=== PATIENT | male | born 1970 | race Two or more races ===

== ENCOUNTER 2020-04-28 14:02 | Inpatient (IN) | payer MEDICAID ==
[2020-04-27 21:00] VITALS: BP 109/88
[2020-04-28] VITALS (7 sets, daily range): BP systolic 143–178; BP diastolic 82–101
[~2020-04-28] VITALS: Ht 170.2 cm; Wt 62.1 kg
--- NOTE | 2020-04-28 14:33 | Emergency Room Report ---
History of Present Illness General Chief Complaint: Dyspnea/Respdistress Source: Patient Present Illness HPI Disclaimer: Please note that this report is being documented using DRAGON technology. This can lead to erroneous entry secondary to incorrect interpretation by the dictating instrument. HPI: 49-year-old male history of diabetes presents for shortness of breath. Symptoms present 2 days. He states he feels tightness chest and some chest pain with deep inspiration. Mild cough. Worsening over the past day. Denies fever or chills. Denies nausea or vomiting. Denies history of asthma, COPD, bronchitis, emphysema. Unknown Covid exposure. PMH: Diabetes PSH: Reviewed Allergies: Reviewed Social Hx: Tobacco use Allergies: Coded Allergies: No Known Allergies (Unverified , 04/28/20) COVID-19 Screening Contact w/high risk pt: No Experienced COVID-19 symptoms?: No COVID-19 Testing performed FUNERAL PRE NEED CONSULTANT: No Nursing Documentation-PMH Hx Diabetes: Yes Review of Systems All Other Systems: negative except mentioned in HPI Physical Exam Vital Signs Date Time Temp Pulse Resp B/P (MAP) Pulse Ox O2 Delivery O2 Flow Rate FiO2 04/28/20 14:12 99.0 118 24 192/101 (131) 88 Room Air General: Awake and alert, appears uncomfortable HEENT: NC/AT. EOMI. Cardiovascular: Tachycardic Resp: 10 L nonrebreather. Was hypoxic on room air. Increased work of breathing with substernal retractions. No wheezing. No crackles. Abdomen: Abdomen is soft, nondistended. Nontender Skin: Intact. No abrasions, laceration or rash over the exposed skin MSK: Normal tone and bulk. Moving all extremities. No obvious deformity. Neuro: Awake and alert. Mentating appropriately. Procedures Critical Care Time Critical Care Time Total critical care time: Approximately 45 minutes Due to a high probability of clinically significant, life threatening deterioration, the patient required the highest level of preparedness to intervene emergently and I personally spent this critical care time directly and personally managing the patient. This critical care time included obtaining a history, examining the patient, pulse oximetry, ordering and reviewing studies, ordering treatments, evaluating response to treatment and updating management plan as needed, frequent reassessment and discussion with other providers as well as arranging for ultimate disposition. This critical to care time was performed to assess and manage the high probability of life-threatening deterior ation that could result in multiorgan failure. This critical care time is separate from the separately billable procedures and treating other patients. Medical Decision Making Diagnostic Impression: Primary Impression: DKA (diabetic ketoacidoses) Additional Impressions: JEREMY (acute kidney injury) Elevated WBC count Elevated d-dimer Hyperglycemia ER Course Is a 49-year-old male presenting with shortness of breath. Differential includes not limited to pneumonia, COVID-19 infection, viral syndrome, ACS, PE, DKA, hyperglycemia among others. Fingerstick on arrival reads "high." Broad work-up initiated including blood cultures, lactate, ABG, chest x-ray EKG and extensive blood work. Concern for DKA. Patient started on insulin. ABG showed significant acidosis concerning for DKA. Insulin drip started. Bicarb given. No infiltrate seen on chest x-ray. Suspect his breathing issues are related to his acidosis causing Kussmaul breathing. Labs show bicarb of 6 and anion gap of 35 and glucose level of 672. Again this consistent with DKA. Troponin negative. Continuing insulin drip, fluids and bicarb. Covid antigen test negative. Admit to ICU. Dr. Noble is panel physician today. Repeat BMP shows still elevated glucose and open anion gap. Potassium low. Insulin drip held and potassium supplementation given. Can restart drip once potassium within acceptable limits. Laboratory Tests Test 04/28/20 14:37 04/28/20 14:40 04/28/20 14:48 04/28/20 17:06 POC Whole Blood Glucose Pending White Blood Count 18.6 K/UL (4.8-10.8) H Red Blood Count 5.01 M/UL (4.70-6.10) Hemoglobin 16.3 G/DL (14.2-18.0) Hematocrit 51.2 % (42.0-52.0) Mean Corpuscular Volume 102 FL (80-99) H Mean Corpuscular Hemoglobin 32.6 PG (27.0-31.0) H Mean Corpuscular Hemoglobin Concent 31.9 G/DL (32.0-36.0) L Red Cell Distribution Width 12.3 % (11.6-14.8) Platelet Count 273 K/UL (150-450) Mean Platelet Volume 7.3 FL (6.5-10.1) Neutrophils (%) (Auto) % (45.0-75.0) Lymphocytes (%) (Auto) % (20.0-45.0) Monocytes (%) (Auto) % (1.0-10.0) Eosinophils (%) (Auto) % (0.0-3.0) Basophils (%) (Auto) % (0.0-2.0) Differential Total Cells Counted 100 Neutrophils % (Manual) 83 % (45-75) H Lymphocytes % (Manual) 7 % (20-45) L Monocytes % (Manual) 7 % (1-10) Eosinophils % (Manual) 0 % (0-3) Basophils % (Manual) 0 % (0-2) Band Neutrophils 3 % (0-8) Platelet Estimate Adequate Platelet Morphology Normal Red Blood Cell Morphology Normal Prothrombin Time 9.7 SEC (9.30-11.50) Prothrombin Time INR 0.9 (0.9-1.1) Activated Partial Thromboplast Time 30 SEC (23-33) D-Dimer 1.28 mg/L FEU (0.00-0.49) H Sodium Level 132 MMOL/L (136-145) L 144 MMOL/L (136-145) # Potassium Level 3.6 MMOL/L (3.5-5.1) 2.5 MMOL/L (3.5-5.1) *L Chloride Level 91 MMOL/L (98-107) L 104 MMOL/L (98-107) Carbon Dioxide Level 6 MMOL/L (21-32) *L 6 MMOL/L (21-32) *L Anion Gap 35 mmol/L (5-15) H 34 mmol/L (5-15) H Blood Urea Nitrogen 21 mg/dL (7-18) H 21 mg/dL (7-18) H Creatinine 1.8 MG/DL (0.55-1.30) H 1.5 MG/DL (0.55-1.30) H Estimated Glomerular Filtration Rate 40.3 mL/min (>60) 49.7 mL/min (>60) Glucose Level 672 MG/DL (74-106) *H 534 MG/DL (74-106) #*H Lactic Acid Level 4.40 mmol/L (0.4-2.0) H Calcium Level 9.6 MG/DL (8.5-10.1) 7.7 MG/DL (8.5-10.1) L Phosphorus Level 8.8 MG/DL (2.5-4.9) H Magnesium Level 2.8 MG/DL (1.8-2.4) H Ferritin 695 NG/ML (8-388) H Total Bilirubin 0.3 MG/DL (0.2-1.0) Aspartate Amino Transferase (AST) 69 U/L (15-37) H Alanine Aminotransferase (ALT) 55 U/L (12-78) Alkaline Phosphatase 124 U/L (46-116) H Lactate Dehydrogenase 247 U/L (81-234) H Total Creatine Kinase 262 U/L (26-308) Creatine Kinase MB 6.2 NG/ML (0.0-3.6) H Creatine Kinase MB Relative Index 2.3 Troponin I 0.000 ng/mL (0.000-0.056) C-Reactive Protein, Quantitative < 0.4 mg/dL (0.00-0.90) Pro-B-Type Natriuretic Peptide 324 pg/mL (0-125) H Total Protein 8.9 G/DL (6.4-8.2) H Albumin 4.7 G/DL (3.4-5.0) Globulin 4.2 g/dL Albumin/Globulin Ratio 1.1 (1.0-2.7) Lipase 353 U/L (73-393) Acetone Level Positive-small (NEGATIVE) Arterial Blood pH 6.883 (7.350-7.450) Arterial Blood Partial Pressure CO2 11.4 mmHg (35.0-45.0) *L Arterial Blood Partial Pressure O2 315.2 mmHg (75.0-100.0) H Arterial Blood HCO3 2.1 mmol/L (22.0-26.0) *L Arterial Blood Oxygen Saturation 98.6 % (95-100) Arterial Blood Base Excess -29.9 (-2-2) *L Sage Test Positive Microbiology Date/Time Source Procedure Growth Status 04/28/20 14:52 Nasopharynx SARS-CoV-2 Antigen (Rapid)(SELENE) - Final Complete EKG Diagnostic Results Troponin ordered: Yes When was troponin ordered?: Apr 28, 2020 EKG Time: 14:30 Rate: tachycardiac Other Impression Sinus tachycardia with wide QRS consistent with interventricular conduction delay Rhythm Strip Diag. Results Rhythm Strip Time: 14:30 EP Interpretation: yes Rate: 110s Rhythm: NSR, no PVC's, no ectopy Chest X-Ray Diagnostic Results Chest X-Ray Diagnostic Results : Chest X-Ray Ordered: Yes # of Views/Limited/Complete: 1 View Indication: Shortness of Breath EP Interpretation: Yes Interpretation: no consolidation, no effusion, no pneumothorax, no acute cardiopulmonary disease Impression: No acute disease Electronically Signed by: Electronically signed by Dr. Vamshi Han MD Last Vital Signs Date Time Temp Pulse Resp B/P (MAP) Pulse Ox O2 Delivery O2 Flow Rate FiO2 04/28/20 14:12 99.0 118 24 192/101 (131) 88 Room Air Disposition: ADMITTED INPATIENT Condition: Critical Vamshi Han MD Apr 28, 2020 14:33
--- NOTE | 2020-04-28 14:50 | NUR ---
RESPIRATORY NOTE: ABG drawn at this time. Results given to MD Emely.
--- NOTE | 2020-04-28 15:00 | NUR ---
came to er complaints of shortness of breath since morning but worse now denies any other problem patient has low o2 sat placed on 15 liter non rebreather
[2020-04-28 15:04] LABS: HEMATOCRIT 51.2 % (42.0-52.0); HEMOGLOBIN 16.3 G/DL (14.2-18.0); MEAN CORPUSCULAR VOLUME 102 FL (80-99); PLATELET COUNT 273 K/UL (150-450); RED BLOOD COUNT 5.01 M/UL (4.70-6.10); RED CELL DISTRIBUTION WIDTH 12.3 % (11.6-14.8); WHITE BLOOD COUNT 18.6 K/UL (4.8-10.8)
[2020-04-28] MEDS ORDERED: Insulin Human Regular 100units/ml 3ml IV ONE (15:15)
[2020-04-28] MEDS ORDERED: Sodium Bicarbonate 50ml Carp IV ONE (15:15)
[2020-04-28 15:18] LABS: INR 0.9 (0.9-1.1)
--- NOTE | 2020-04-28 15:30 | NUR ---
labs done ekg done accucheck hi
[2020-04-28 15:36] LABS: ALANINE AMINOTRANSFERASE 55 U/L (12-78); ALBUMIN 4.7 G/DL (3.4-5.0); ALBUMIN/GLOBULIN RATIO 1.1 (1.0-2.7); ALKALINE PHOSPHATASE 124 U/L (46-116); ANION GAP 35 mmol/L (5-15); ASPARTATE AMINO TRANSFERASE 69 U/L (15-37); BILIRUBIN,TOTAL 0.3 MG/DL (0.2-1.0); BLOOD UREA NITROGEN 21 mg/dL (7-18); CALCIUM 9.6 MG/DL (8.5-10.1); CHLORIDE 91 MMOL/L (98-107); CREATINE KINASE 262 U/L (26-308); CREATININE 1.8 MG/DL (0.55-1.30); FERRITIN 695 NG/ML (8-388); LACTATE DEHYDROGENASE 247 U/L (81-234); PHOSPHORUS 8.8 MG/DL (2.5-4.9); POTASSIUM 3.6 MMOL/L (3.5-5.1); SODIUM 132 MMOL/L (136-145)
[2020-04-28 15:40] LABS: CARBON DIOXIDE 6 MMOL/L (21-32)
[2020-04-28 16:06] LABS: CKMB 6.2 NG/ML (0.0-3.6)
--- NOTE | 2020-04-28 16:32 | Consultation ---
Consult Note Consult Note DATE OF CONSULTATION: 04/28/2020 CONSULTING PHYSICIAN: Nigel Ray MD. ATTENDING PHYSICIAN: Dr. Noble REASON FOR CONSULTATION: Acute hypoxic respiratory failure HISTORY OF PRESENT ILLNESS: This is a 49-year-old male with past medical history of diabetes mellitus who presented to the ED for evaluation of shortness of br eath x2 days. Patient reports feeling tightness in the chest with some chest pain with deep inspiration and mild cough. Patient denies history of asthma, COPD, bronchitis, or emphysema. Patient reports testing negative for COVID-19 4 months prior. Patient denies exposure to COVID-19 or sick contact or recent travel. Patient denies smoking history. Chest x-ray in ER shows no acute cardiopulmonary disease. Patient is found to be sinus tachycardic. Patient's laboratory studies are remarkable for leukocytosis, hyperglycemia, lactic acidosis, elevated D-dimer, and acidemia. Patient was immediately started on insulin drip and bicarb. Troponin was negative. Covid antigen test was negative. Patient is awaiting admission in ER. PAST MEDICAL HISTORY: Diabetes mellitus, not on medication MEDICATIONS: Full list of home medications not available at this time ALLERGIES: No known allergy FAMILY HISTORY: Noncontributory PERSONAL/SOCIAL HISTORY: Patient lives alone, denies tobacco use REVIEW OF SYSTEMS: Negative except mentioned in HPI PHYSICAL EXAMINATION: VITAL SIGNS: Blood pressure 178/97, heart rate 127, respiratory rate 22, weight 65, height 177. General: Patient laying in bed with head of bed elevated, increased work of breathing on 2 L nasal cannula HEENT: Head exam reveals that the head is normocephalic, atraumatic without deformity or unusual swelling. Pupils are PERRLA. Dry mucous membranes CHEST AND LUNGS: Substernal retractions, increased work of breathing, no wheezing, no crackles CARDIOVASCULAR: Reveals normal S1, S2 without murmurs, rubs, or clicks. ABDOMEN: Soft with no tenderness or organomegaly. RECTAL: Deferred. MUSCULOSKELETAL: There is no tenderness to palpation. Range of motion is normal. NEUROLOGICAL: Alert and oriented x3 , nonfocal LABORATORY DATA: Laboratory testing shows WBC 18.6. Chemistries show sodium 132, chloride 91, BUN 21, creatinine 1.8, GFR 40.3, glucose 672, lactic acid 4.4, phosphorus 8.8, magnesium 2.8, ferritin 695, AST 69, alk phos 124, LDH 247, CK-MB 6.2, troponin 0, BNP 324 D-dimer 1.28 Assessment/Plan 1. Leukocytosis with neutrophil predominance 2. DKA -On IV fluids and insulin drip 3. Rapid COVID-19 negative (04/28) 4. Elevated D-dimer - we will add Lovenox for DVT ppx 5. Hypoxic respiratory failure, likely secondary to #2 -Patient showing Kussmaul breathing -Continue supplemental oxygen - f/u ABG The care for this patient was discussed with my supervising physician. Time spent for this case was approximately 31 minutes. Alexandru Aranda Apr 28, 2020 16:32
[2020-04-28 17:31] LABS: CALCIUM 7.7 MG/DL (8.5-10.1); CREATININE 1.5 MG/DL (0.55-1.30)
[2020-04-28 18:07] LABS: POTASSIUM 2.5 MMOL/L (3.5-5.1)
--- NOTE | 2020-04-28 18:33 | NUR ---
attempted to call report. room not ready at this time. ICU verbalized to call when room ready and get bedside report.
--- NOTE | 2020-04-28 18:33 | Diagnostic Imaging Report ---
Indication: Shortness of breath Technique: One view of the chest Comparison: none Findings: There is bilateral basilar atelectasis and possibly some patchy infiltrate at the left lung base. The heart size is normal. The pleural spaces are clear. Impression: Bilateral basilar atelectasis and possibly patchy left basilar infiltrate.
--- NOTE | 2020-04-28 20:00 | NUR ---
ED Nurse Note: Pt brought in for hyperglycemia admitted for DKA to ICU per MD, all labs and swabs sent to lab, pt is AOx4 ambulatory, tachycardic, no complaints, report given to Aleshia MORIN patient belongings sent with patient refused offer to put in hospital safe, belongings form filled, and signed by patient
--- NOTE | 2020-04-28 20:16 | NUR ---
NURSE NOTES: Called Dr. Kingsley per Dr. Ray regarding the bicarb result post intubation ABG bicarb 12.8. Dr Kingsley gave orders noted and carried out. charge nurse aware. Addendum: 04/28/20 at 2018 by HARJIT TANNER RN wrong patient
--- NOTE | 2020-04-28 21:27 | NUR ---
NURSE NOTES: NURSE NOTES: Received report from Leah RN. Admitted patient from ER via [facility] accompanied by PERSONNEL TRAINING OFFICER and chemical treatment plant technician. admitting diagnosis hypoxia and Resp failure. patient originally from home.n Called Dr. Noble for admission orders. Blood sugar 427mg/dl received from ER with Regular insulin drip at 7.07mls. patient awake,alert oriented x3 with forgetful and slurred speech. on 3L oxygen via N/C satting 99-100%. ST on surveillance monitor [id number], BP from 162/84- 109/88 Resp 27, Temp 96.0 orally, Isac hugger applied. body assessment done. patient refused to removed underwear to check sacral. explained the importance v/s risk and benefits but pt strongly refused. Instructed patient to use call light for assistance. bed alarm on. bed locked and in low position. Negative for covid per PERSONNEL TRAINING OFFICER. patient denies anxiety and pain. will continue plan of care.
--- NOTE | 2020-04-28 21:48 | NUR ---
NURSE NOTES: 2nd call was made for Dr. Noble and left message regarding admission orders. CN aware.
[2020-04-28] MEDS: Pantoprazole Inj IVP SCH (22:31)
--- NOTE | 2020-04-28 22:37 | NUR ---
NURSE NOTES: Called Dr. Dutton and gave orders noted and carried out.
[2020-04-28] MEDS ORDERED: Insulin Rate Change 1 Each MISC PRN (22:45)
[2020-04-28] MEDS ORDERED: Insulin Human Regular 100units/ml 3ml IV PRN ×2 (22:45)
--- NOTE | 2020-04-28 22:48 | NUR ---
NURSE NOTES: Called Dr. Ordonez made aware of patient condition and gave orders noted and carried out.
[2020-04-28] MEDS: NS w/KCl 20mEq 1000ml 1,000 ML IV SCH (23:24)
[2020-04-29] VITALS (33 sets, daily range): BP systolic 91–151; BP diastolic 57–91
--- NOTE | 2020-04-29 | NUR ---
NURSE NOTES: Patient awake,alert oriented x4. patient blood glucose 257mg/dl on Algo 2 Regular insulin drip at 5cc/hr. no s/s of hypo/hyperglycemia. Used urinal with 900cc urine output. Temp 98.6 axillary. call light within easy reach. will continue plan of care.
--- NOTE | 2020-04-29 02:00 | NUR ---
NURSE NOTES: Patient in bed sleeping comfortably. on 3L oxygen via N/C satting 100%. HOB elevated. no s/s of acute distress noted. patient blood glucose 171mg/dl on Algo 2 Regular insulin drip at 2.5cc/hr, IV line intact running NS with 20meq KCL at 100cc/hr. NPO overnight per Dr. Dutton earlier patient with slurred speech but able to swallow meds and water. . no s/s of hypo/hyperglycemia. Urinal at bedside. call light within easy reach. will continue plan of care.
--- NOTE | 2020-04-29 04:00 | NUR ---
NURSE NOTES: Patient used bedpan with x1 large BM, urinal used with 900cc tonja yellow urine, call light within easy reach. no s/s of hypo/hyperglycemia. frequent visual checks continued. will cont plan of care.
[2020-04-29 05:37] LABS: BASOPHILS % (AUTO) 0.4 % (0.0-2.0); HEMATOCRIT 42.4 % (42.0-52.0); HEMOGLOBIN 14.5 G/DL (14.2-18.0); LYMPHOCYTES % (AUTO) 5.4 % (20.0-45.0); MEAN CORPUSCULAR VOLUME 94 FL (80-99); MONOCYTES % (AUTO) 10.6 % (1.0-10.0); NEUTROPHILS % (AUTO) 83.5 % (45.0-75.0); PLATELET COUNT 185 K/UL (150-450); RED BLOOD COUNT 4.53 M/UL (4.70-6.10); RED CELL DISTRIBUTION WIDTH 11.4 % (11.6-14.8); WHITE BLOOD COUNT 12.7 K/UL (4.8-10.8)
[2020-04-29 05:47] LABS: ANION GAP 22 mmol/L (5-15); BLOOD UREA NITROGEN 18 mg/dL (7-18); CALCIUM 9.2 MG/DL (8.5-10.1); CARBON DIOXIDE 11 MMOL/L (21-32); CHLORIDE 108 MMOL/L (98-107); POTASSIUM 3.3 MMOL/L (3.5-5.1); SODIUM 141 MMOL/L (136-145)
--- NOTE | 2020-04-29 06:00 | NUR ---
NURSE NOTES: Patient awake,alert watching TV. patient blood glucose 146mg/dl on Algo 2 Regular insulin drip at 2cc/hr. no s/s of hypo/hyperglycemia. . call light within easy reach. will continue plan of care.
[2020-04-29 06:11] LABS: CHOLESTEROL 249 MG/DL (< 200); CREATINE KINASE 219 U/L (26-308); GAMMA GLUTAMYL TRANSPEPTIDASE 81 U/L (5-85); HDL CHOLESTEROL 52 MG/DL (40-60); PHOSPHORUS 1.3 MG/DL (2.5-4.9); TRIGLYCERIDES 401 MG/DL (30-150)
--- NOTE | 2020-04-29 07:22 | Cardiac Electrophysiology PN ---
Subjective Subjective [id number] Objective Last 24 Hour Vital Signs Date Time Temp Pulse Resp B/P (MAP) Pulse Ox O2 Delivery O2 Flow Rate FiO2 04/29/20 05:00 94 20 137/78 (97) 100 04/29/20 04:00 98.2 94 19 134/85 (101) 99 04/29/20 04:00 Nasal Cannula 3.0 04/29/20 03:00 96 20 136/86 (103) 99 04/29/20 02:00 100 24 133/86 (102) 100 04/29/20 01:30 99 21 131/85 (100) 100 04/29/20 01:00 100 19 141/89 (106) 100 04/29/20 00:15 109 32 151/88 (109) 99 04/29/20 00:00 98.0 112 32 142/91 (108) 100 04/29/20 00:00 Nasal Cannula 3.0 04/28/20 23:00 106 28 151/95 (113) 100 04/28/20 22:00 110 27 159/95 (116) 100 04/28/20 21:30 112 27 154/98 (116) 100 04/28/20 21:15 112 27 146/101 (116) 100 04/28/20 21:13 117 04/28/20 21:11 Nasal Cannula 3.0 04/28/20 19:26 121 25 152/91 98 Nasal Cannula 3.0 04/28/20 18:33 107 25 143/82 100 Nasal Cannula 3.0 04/28/20 17:34 127 22 Nasal Cannula 3.0 04/28/20 15:29 127 22 178/97 100 Nasal Cannula 3.0 04/28/20 14:12 99.0 118 24 192/101 (131) 88 Room Air Intake and Output 04/28/20 04/29/20 19:00 07:00 Intake Total 599.055 ml Output Total 1800 ml Balance -1200.945 ml Intake Oral 0 ml IV Total 599.055 ml Output Urine Total 1800 ml # Bowel Movements 2 Laboratory Tests Test 04/28/20 14:37 04/28/20 14:40 04/28/20 14:48 04/28/20 17:06 POC Whole Blood Glucose Pending White Blood Count 18.6 K/UL (4.8-10.8) H Red Blood Count 5.01 M/UL (4.70-6.10) Hemoglobin 16.3 G/DL (14.2-18.0) Hematocrit 51.2 % (42.0-52.0) Mean Corpuscular Volume 102 FL (80-99) H Mean Corpuscular Hemoglobin 32.6 PG (27.0-31.0) H Mean Corpuscular Hemoglobin Concent 31.9 G/DL (32.0-36.0) L Red Cell Distribution Width 12.3 % (11.6-14.8) Platelet Count 273 K/UL (150-450) Mean Platelet Volume 7.3 FL (6.5-10.1) Neutrophils (%) (Auto) % (45.0-75.0) Lymphocytes (%) (Auto) % (20.0-45.0) Monocytes (%) (Auto) % (1.0-10.0) Eosinophils (%) (Auto) % (0.0-3.0) Basophils (%) (Auto) % (0.0-2.0) Differential Total Cells Counted 100 Neutrophils % (Manual) 83 % (45-75) H Lymphocytes % (Manual) 7 % (20-45) L Monocytes % (Manual) 7 % (1-10) Eosinophils % (Manual) 0 % (0-3) Basophils % (Manual) 0 % (0-2) Band Neutrophils 3 % (0-8) Platelet Estimate Adequate Platelet Morphology Normal Red Blood Cell Morphology Normal Prothrombin Time 9.7 SEC (9.30-11.50) Prothromb Time International Ratio 0.9 (0.9-1.1) Activated Partial Thromboplast Time 30 SEC (23-33) D-Dimer 1.28 mg/L FEU (0.00-0.49) H Sodium Level 132 MMOL/L (136-145) L 144 MMOL/L (136-145) # Potassium Level 3.6 MMOL/L (3.5-5.1) 2.5 MMOL/L (3.5-5.1) *L Chloride Level 91 MMOL/L (98-107) L 104 MMOL/L (98-107) Carbon Dioxide Level 6 MMOL/L (21-32) *L 6 MMOL/L (21-32) *L Anion Gap 35 mmol/L (5-15) H 34 mmol/L (5-15) H Blood Urea Nitrogen 21 mg/dL (7-18) H 21 mg/dL (7-18) H Creatinine 1.8 MG/DL (0.55-1.30) H 1.5 MG/DL (0.55-1.30) H Estimat Glomerular Filtration Rate 40.3 mL/min (>60) 49.7 mL/min (>60) Glucose Level 672 MG/DL (74-106) *H 534 MG/DL (74-106) #*H Lactic Acid Level 4.40 mmol/L (0.4-2.0) H Calcium Level 9.6 MG/DL (8.5-10.1) 7.7 MG/DL (8.5-10.1) L Phosphorus Level 8.8 MG/DL (2.5-4.9) H Magnesium Level 2.8 MG/DL (1.8-2.4) H Ferritin 695 NG/ML (8-388) H Total Bilirubin 0.3 MG/DL (0.2-1.0) Aspartate Amino Transf (AST/SGOT) 69 U/L (15-37) H Alanine Aminotransferase (ALT/SGPT) 55 U/L (12-78) Alkaline Phosphatase 124 U/L (46-116) H Lactate Dehydrogenase 247 U/L (81-234) H Total Creatine Kinase 262 U/L (26-308) Creatine Kinase MB 6.2 NG/ML (0.0-3.6) H Creatine Kinase MB Relative Index 2.3 Troponin I 0.000 ng/mL (0.000-0.056) C-Reactive Protein, Quantitative < 0.4 mg/dL (0.00-0.90) Pro-B-Type Natriuretic Peptide 324 pg/mL (0-125) H Total Protein 8.9 G/DL (6.4-8.2) H Albumin 4.7 G/DL (3.4-5.0) Globulin 4.2 g/dL Albumin/Globulin Ratio 1.1 (1.0-2.7) Lipase 353 U/L (73-393) Acetone Level Positive-small (NEGATIVE) Arterial Blood pH 6.883 (7.350-7.450) Arterial Blood Partial Pressure CO2 11.4 mmHg (35.0-45.0) *L Arterial Blood Partial Pressure O2 315.2 mmHg (75.0-100.0) H Arterial Blood HCO3 2.1 mmol/L (22.0-26.0) *L Arterial Blood Oxygen Saturation 98.6 % (95-100) Arterial Blood Base Excess -29.9 (-2-2) *L Sage Test Positive Test 04/28/20 18:25 04/29/20 04:20 POC Whole Blood Glucose Pending White Blood Count 12.7 K/UL (4.8-10.8) H Red Blood Count 4.53 M/UL (4.70-6.10) L Hemoglobin 14.5 G/DL (14.2-18.0) Hematocrit 42.4 % (42.0-52.0) Mean Corpuscular Volume 94 FL (80-99) Mean Corpuscular Hemoglobin 32.0 PG (27.0-31.0) H Mean Corpuscular Hemoglobin Concent 34.1 G/DL (32.0-36.0) Red Cell Distribution Width 11.4 % (11.6-14.8) L Platelet Count 185 K/UL (150-450) Mean Platelet Volume 7.8 FL (6.5-10.1) Neutrophils (%) (Auto) 83.5 % (45.0-75.0) H Lymphocytes (%) (Auto) 5.4 % (20.0-45.0) L Monocytes (%) (Auto) 10.6 % (1.0-10.0) H Eosinophils (%) (Auto) 0.0 % (0.0-3.0) Basophils (%) (Auto) 0.4 % (0.0-2.0) Sodium Level 141 MMOL/L (136-145) Potassium Level 3.3 MMOL/L (3.5-5.1) L Chloride Level 108 MMOL/L (98-107) H Carbon Dioxide Level 11 MMOL/L (21-32) L Anion Gap 22 mmol/L (5-15) H Blood Urea Nitrogen 18 mg/dL (7-18) Creatinine 1.0 MG/DL (0.55-1.30) Estimat Glomerular Filtration Rate > 60 mL/min (>60) Glucose Level 155 MG/DL (74-106) #H Hemoglobin A1c 9.6 % (4.3-6.0) H Uric Acid 9.1 MG/DL (2.6-7.2) H Calcium Level 9.2 MG/DL (8.5-10.1) Phosphorus Level 1.3 MG/DL (2.5-4.9) L Magnesium Level 1.8 MG/DL (1.8-2.4) Gamma Glutamyl Transpeptidase 81 U/L (5-85) Total Creatine Kinase 219 U/L (26-308) Troponin I Pending C-Reactive Protein, Quantitative 8.8 mg/dL (0.00-0.90) H Pro-B-Type Natriuretic Peptide 824 pg/mL (0-125) H Triglycerides Level 401 MG/DL (30-150) H Cholesterol Level 249 MG/DL (< 200) H LDL Cholesterol 113 mg/dL (<100) H HDL Cholesterol 52 MG/DL (40-60) Cholesterol/HDL Ratio 4.8 (3.3-4.4) H Lipase 148 U/L (73-393) Thyroid Stimulating Hormone (TSH) 3.287 uiU/mL (0.358-3.740) Microbiology Date/Time Source Procedure Growth Status 04/28/20 14:52 Nasopharynx SARS-CoV-2 Antigen (Rapid)(SELENE) - Final Complete Jordan Ordonez MD Apr 29, 2020 07:22
--- NOTE | 2020-04-29 07:30 | NUR ---
NURSE NOTES: Pt and report received from PATIENCE Monk. Pt is AOx4, independent with all ADLs. Pt is on 3L NC, O2sat 100%. HR on employer relations representative currently reads 82bpm. PIV Lt FA #[id number] and Rt hand #[id number]. Running Insulin drip @ 2units/hr and NS w/ 20mEq KCL @ 100mL/hr. Urinal at the bedside. Bed locked and in lowest position, call light within reach.
--- NOTE | 2020-04-29 07:30 | NUR ---
NURSE HAND-OFF REPORT: Latest Vital Signs: Temperature 98.2 , Pulse 79 , B/P 140 /83 , Respiratory Rate 18 , O2 SAT 100 , Nasal Cannula, O2 Flow Rate 3.0 . Vital Sign Comment: EKG Rhythm: Sinus Rhythm with BBB Rhythm change?: N MD Notified?: -Dr. Ordonez came and made aware MD Response: Latest Lewis Fall Score: 35 Fall Risk: Medium Risk Safety Measures: Call light Within Reach, Bed Alarm Zone 2, Side Rails Side Rails x2, Bed position Low and Locked. Fall Precautions: Yellow Socks Door Sign Patient Fall Education Report given to Janae MORIN. Dr. Ordonez rounded with patient update given. Notified MD regarding EKG result Right BBB HR 87.
--- NOTE | 2020-04-29 07:57 | NUR ---
NURSE NOTES: 2D echo being done at the bedside
--- NOTE | 2020-04-29 07:59 | Consultation ---
DATE OF CONSULTATION: 04/29/2020 CARDIOLOGY CONSULTATION CONSULTING PHYSICIAN: Jordan Ordonez MD. REFERRING PHYSICIAN: Jesús Noble MD. REASON FOR CONSULTATION: Tachycardia, bifascicular block in the patient with diabetic ketoacidosis. HISTORY OF PRESENT ILLNESS: The patient is a 49-year-old man with history of diabetes presented to the emergency room for increased shortness of breath of two days duration. The patient also had some chest tightness with deep inspiration and mild cough. The patient denies any prior COPD, asthma, or emphysema. The patient denies prior myocardial infarction or coronary artery disease. The patient was tested negative for COVID-19 four months ago. The patient noted to be in diabetic ketoacidosis. He had acidemia, hyperglycemia, leukocytosis, started on insulin drip and bicarb. The first troponin was negative and COVID was also negative. The patient was admitted to intensive care unit and a Cardiology consultation was obtained for further evaluation and management. REVIEW OF SYSTEMS: Negative other than what is mentioned in the history of present illness. PAST MEDICAL HISTORY: Diabetes but not on any medication. ALLERGIES: No known drug allergies. FAMILY HISTORY: Noncontributory. SOCIAL HISTORY: Lives alone. Does not smoke or do drugs. PHYSICAL EXAMINATION: VITAL SIGNS: Blood pressure in the ER was 178/98, currently 137/78, pulse is 94, respirations 18, and temperature 98.2. HEAD AND NECK: No JVD. LUNGS: Clear. CARDIOVASCULAR: Regular S1 and S2 with no gallop. ABDOMEN: Soft. EXTREMITIES: No pitting edema. LABORATORY AND DIAGNOSTIC DATA: Labs show white count initially was 18.6 and today is 12.7, hemoglobin is 14.5, hematocrit 42.4, platelet count 185. Sodium is 141, potassium was 2.5 and today is 3.3, CO2 was 6 and today 11, BUN of 18, creatinine 1.0, glucose of 534 and today is 155. Triglyceride 401 with an LDL of 113. Lipase of 148. ASSESSMENT AND PLAN: 1. Tachycardia due to diabetic ketoacidosis. The heart rate is better since the patient was started on insulin drip. We will get an echocardiogram for further evaluation. 2. 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 3. Severe hypokalemia. Potassium was being replaced. 4. Hyperlipidemia. The LDL goal is less than 70. In view of this patient's diabetes, start the patient on Lipitor. Thank you very much for allowing me to participate in the care of this patient. Please do not hesitate to contact me for any questions regarding my evaluation Sincerely, Jordan Ordonez M.D. DR: Karla JOB#: [id number] CC:
[2020-04-29] MEDS: Pantoprazole Inj IVP SCH ×2 (08:51→21:08)
[2020-04-29] MEDS: Lisinopril 10mg tab ORAL SCH ×2 (08:52→21:00)
[2020-04-29] MEDS: Enoxaparin 40mg Inj SUBQ SCH (08:56)
--- NOTE | 2020-04-29 09:00 | NUR ---
NURSE NOTES: Oxygen decreased on NC, now 1L. O2sat remains 100%
--- NOTE | 2020-04-29 09:50 | NUR ---
NURSE NOTES: Dr Noble on the unit making his rounds. Updated him on pt's current condition. Tech at bedside performing venous duplex
[2020-04-29] MEDS: Potassium Phosphate 15mm/250ml 250 ML IVPB SCH ×2 (09:59→13:21)
[2020-04-29] MEDS: NS w/KCl 20mEq 1000ml 1,000 ML IV SCH ×2 (10:00→18:00)
--- NOTE | 2020-04-29 10:15 | NUR ---
NURSE NOTES: Venous duplex reported to be negative
--- NOTE | 2020-04-29 10:42 | Pulmonology Progress Note ---
Subjective Interval Events: Remains on insulin gtt Constitutional: Reports: no symptoms HEENT: Repors: no symptoms Respiratory: Reports: no symptoms Cardiovascular: Reports: no symptoms Gastrointestinal/Abdominal: Reports: no symptoms Genitourinary: Reports: no symptoms Allergies: Coded Allergies: No Known Allergies (Unverified , 04/28/20) Objective Last 24 Hour Vital Signs Date Time Temp Pulse Resp B/P (MAP) Pulse Ox O2 Delivery O2 Flow Rate FiO2 04/29/20 09:13 100 Nasal Cannula 1.0 24 04/29/20 09:00 88 19 138/83 (101) 100 04/29/20 08:52 124/74 04/29/20 08:30 87 16 124/74 (91) 99 04/29/20 08:00 Nasal Cannula 1.0 04/29/20 08:00 90 04/29/20 08:00 98.2 90 21 136/82 (100) 100 04/29/20 07:45 100 Nasal Cannula 3.0 32 04/29/20 07:00 79 18 140/83 (102) 100 04/29/20 06:00 85 15 129/82 (98) 100 04/29/20 05:00 94 20 137/78 (97) 100 04/29/20 04:00 95 04/29/20 04:00 98.2 94 19 134/85 (101) 99 04/29/20 04:00 Nasal Cannula 3.0 04/29/20 03:00 96 20 136/86 (103) 99 04/29/20 02:00 100 24 133/86 (102) 100 04/29/20 01:30 99 21 131/85 (100) 100 04/29/20 01:00 100 19 141/89 (106) 100 04/29/20 00:15 109 32 151/88 (109) 99 04/29/20 00:00 98.0 112 32 142/91 (108) 100 04/29/20 00:00 106 04/29/20 00:00 Nasal Cannula 3.0 04/28/20 23:00 106 28 151/95 (113) 100 04/28/20 22:00 110 27 159/95 (116) 100 04/28/20 21:30 112 27 154/98 (116) 100 04/28/20 21:15 112 27 146/101 (116) 100 04/28/20 21:13 117 04/28/20 21:11 Nasal Cannula 3.0 04/28/20 19:26 121 25 152/91 98 Nasal Cannula 3.0 04/28/20 18:33 107 25 143/82 100 Nasal Cannula 3.0 04/28/20 17:34 127 22 Nasal Cannula 3.0 04/28/20 15:29 127 22 178/97 100 Nasal Cannula 3.0 04/28/20 14:12 99.0 118 24 192/101 (131) 88 Room Air Intake and Output 04/28/20 04/29/20 19:00 07:00 Intake Total 803.055 ml Output Total 1800 ml Balance -996.945 ml Intake Oral 0 ml IV Total 803.055 ml Output Urine Total 1800 ml # Bowel Movements 2 General Appearance: no acute distress HEENT: normocephalic Respiratory: chest wall non-tender, lungs clear Cardiovascular: normal peripheral pulses, normal rate Abdomen: normal bowel sounds Microbiology Date/Time Source Procedure Growth Status 04/28/20 14:52 Nasopharynx SARS-CoV-2 Antigen (Rapid)(SELENE) - Final Complete Laboratory Tests 04/28/20 14:37: POC Whole Blood Glucose [Pending] 04/28/20 14:40: White Blood Count 18.6H, Red Blood Count 5.01, Hemoglobin 16.3, Hematocrit 51.2, Mean Corpuscular Volume 102H, Mean Corpuscular Hemoglobin 32.6H, Mean Corpuscular Hemoglobin Concent 31.9L, Red Cell Distribution Width 12.3, Platelet Count 273, Mean Platelet Volume 7.3, Neutrophils (%) (Auto) , Lymphocytes (%) (Auto) , Monocytes (%) (Auto) , Eosinophils (%) (Auto) , Basophils (%) (Auto) , Differential Total Cells Counted 100, Neutrophils % (Manual) 83H, Lymphocytes % (Manual) 7L, Monocytes % (Manual) 7, Eosinophils % (Manual) 0, Basophils % (Manual) 0, Band Neutrophils 3, Platelet Estimate Adequate, Platelet Morphology Normal, Red Blood Cell Morphology Normal, Prothrombin Time 9.7, Prothromb Time International Ratio 0.9, Activated Partial Thromboplast Time 30, D-Dimer 1.28H, Sodium Level 132L, Potassium Level 3.6, Chloride Level 91L, Carbon Dioxide Level 6*L, Anion Gap 35H, Blood Urea Nitrogen 21H, Creatinine 1.8H, Estimat Glomerular Filtration Rate 40.3, Glucose Level 672*H, Lactic Acid Level 4.40H, Calcium Level 9.6, Phosphorus Level 8.8H, Magnesium Level 2.8H, Ferritin 695H, Total Bilirubin 0.3, Aspartate Amino Transf (AST/SGOT) 69H, Alanine Aminotransferase (ALT/SGPT) 55, Alkaline Phosphatase 124H, Lactate Dehydrogenase 247H, Total Creatine Kinase 262, Creatine Kinase MB 6.2H, Creatine Kinase MB Relative Index 2.3, Troponin I 0.000, C-Reactive Protein, Quantitative < 0.4, Pro-B-Type Natriuretic Peptide 324H, Total Protein 8.9H, Albumin 4.7, Globulin 4.2, Albumin/Globulin Ratio 1.1, Lipase 353, Acetone Level Positive-small 04/28/20 14:48: Arterial Blood pH 6.883*L, Arterial Blood Partial Pressure CO2 11.4*L, Arterial Blood Partial Pressure O2 315.2H, Arterial Blood HCO3 2.1*L, Arterial Blood Oxygen Saturation 98.6, Arterial Blood Base Excess -29.9*L, Sage Test Positive 04/28/20 17:06: Sodium Level 144#, Potassium Level 2.5*L, Chloride Level 104, Carbon Dioxide Level 6*L, Anion Gap 34H, Blood Urea Nitrogen 21H, Creatinine 1.5H, Estimat Glomerular Filtration Rate 49.7, Glucose Level 534#*H, Calcium Level 7.7L 04/28/20 18:25: POC Whole Blood Glucose [Pending] 04/29/20 04:20: White Blood Count 12.7H, Red Blood Count 4.53L, Hemoglobin 14.5, Hematocrit 42.4, Mean Corpuscular Volume 94, Mean Corpuscular Hemoglobin 32.0H, Mean Corpuscular Hemoglobin Concent 34.1, Red Cell Distribution Width 11.4L, Platelet Count 185, Mean Platelet Volume 7.8, Neutrophils (%) (Auto) 83.5H, Lymphocytes (%) (Auto) 5.4L, Monocytes (%) (Auto) 10.6H, Eosinophils (%) (Auto) 0.0, Basophils (%) (Auto) 0.4, Sodium Level 141, Potassium Level 3.3L, Chloride Level 108H, Carbon Dioxide Level 11L, Anion Gap 22H, Blood Urea Nitrogen 18, Cre atinine 1.0, Estimat Glomerular Filtration Rate > 60, Glucose Level 155#H, Hemoglobin A1c 9.6H, Uric Acid 9.1H, Calcium Level 9.2, Phosphorus Level 1.3L, Magnesium Level 1.8, Gamma Glutamyl Transpeptidase 81, Total Creatine Kinase 219, Troponin I 0.017, C-Reactive Protein, Quantitative 8.8H, Pro-B-Type Natriuretic Peptide 824H, Triglycerides Level 401H, Cholesterol Level 249H, LDL Cholesterol 113H, HDL Cholesterol 52, Cholesterol/HDL Ratio 4.8H, Lipase 148, Thyroid Stimulating Hormone (TSH) 3.287 04/29/20 08:58: Arterial Blood pH 7.325L, Arterial Blood Partial Pressure CO2 22.4*L, Arterial Blood Partial Pressure O2 144.9H, Arterial Blood HCO3 11.4*L, Arterial Blood Oxygen Saturation 97.6, Arterial Blood Base Excess -12.4*L, Sage Test Positive Current Medications Medications (Trade) Dose Ordered Sig/Jazzmine Route PRN Reason Start Time Stop Time Status Last Admin Dose Admin Atorvastatin Calcium (Lipitor) 20 mg BEDTIME ORAL 04/29/20 21:00 07/28/20 20:59 Clonidine HCl (Catapres Tab) 0.1 mg Q2H PRN ORAL SBP above 170 04/28/20 23:15 07/27/20 23:14 Dextrose (Dextrose 50%) 25 ml Q30M PRN IV HYPOGLYCEMIA 04/28/20 22:45 07/27/20 22:44 Dextrose (Dextrose 50%) 50 ml Q30M PRN IV HYPOGLYCEMIA 04/28/20 22:45 07/27/20 22:44 Enoxaparin Sodium (Lovenox) 40 mg DAILY SUBQ 04/29/20 09:00 07/28/20 08:59 04/29/20 08:56 Insulin Human Regular (NovoLIN R) 5 units PRN PRN IV BS 200-299 04/28/20 22:45 07/27/20 22:44 Insulin Human Regular (NovoLIN R) 10 units PRN PRN IV BS=>300 04/28/20 22:45 07/27/20 22:44 04/28/20 23:15 Insulin Human Regular 100 units/ Sodium Chloride 101 ml @ 0 mls/hr Q24H IV 04/28/20 22:45 05/28/20 22:44 04/28/20 22:59 Lisinopril (ZestriL) 10 mg EVERY 12 HOURS ORAL 04/29/20 09:00 05/29/20 08:59 04/29/20 08:52 Miscellaneous Medication (Insulin Rate Change) 1 ea PRN PRN MISC Hyperglycemia 04/28/20 22:45 07/27/20 22:44 Pantoprazole (Protonix) 40 mg EVERY 12 HOURS IVP 04/28/20 21:00 05/28/20 20:59 04/29/20 08:51 Potassium Chloride/Sodium Chloride 1,000 ml @ 100 mls/hr Q10H IV 04/28/20 23:45 05/28/20 23:44 04/29/20 10:00 Potassium Phosphate 250 ml @ 62.5 mls/hr Q4H IVPB 04/29/20 09:30 04/29/20 17:29 04/29/20 09:59 Assessment/Plan Assessment/Plan 1. Leukocytosis with neutrophil predominance 2. DKA -On IV fluids and insulin drip 3. Rapid COVID-19 negative (04/28) 4. Elevated D-dimer - Continue Lovenox for DVT ppx 5. Hypoxia - continue supplemental O2 Nigel Ray MD Apr 29, 2020 10:42
[2020-04-29] MEDS ORDERED: cefTRIAXone 1 GM in D5W 55 ML IVPB SCH (11:00)
--- NOTE | 2020-04-29 11:47 | NUR ---
MANAGER IN TRAINING NOTE SW met w/ pt and completed the psychosocial assessment. Pt presents as A&O4x and cooperative. Pt resides w/ his friend, Sandeep Papi at [address] [place] [id number]. Pt is and has two adult sons (28 y/o, 24y/o). Both and sons are living in [place]. Pt reports ETOH abuse, drinking 3-4 bottles of beer daily. SW explained negative impacts of ETOH abuse in his health and lifestyle and addressed the quantity of ETOH intake. PT reports he will reduce ETOH intake. PT denies tobacco/other substance abuse. PT declined tx intervention/resource on substance abuse. PT denies having mental health issue. Pt is ambulatory w/o DME and independent w/ ADLs prior to admission. Pt does not have AD/POA. Pt does not have any psychotherapist social worker concern at this time. Pt remains full code. Emergency contact: Sandeep Turpin (friend) [phone]
--- NOTE | 2020-04-29 11:59 | Consultation ---
DATE OF CONSULTATION: 04/29/2020 INFECTIOUS DISEASES CONSULTATION CONSULTING PHYSICIAN: Seabs Posada MD REASON FOR CONSULTATION: Pneumonia, leukocytosis. HISTORY OF PRESENT ILLNESS: This is a 49-year-old male admitted yesterday with shortness of breath and chest pain for two days. He is diabetic and noncompliant with medication. He had leukocytosis of 18.6 at the time of admission, had tachycardia with heart rate up to 127. PAST MEDICAL HISTORY: Diabetes mellitus, not on medication. ALLERGIES: No known drug allergies. MEDICATIONS: Atorvastatin, potassium chloride, lisinopril, enoxaparin, insulin. SOCIAL HISTORY: He is single, lives alone. Denies drug abuse. Denies smoking but drink alcohol. REVIEW OF SYSTEMS: Very limited. No fever. No chills. No significant coughing but have right-sided chest pain. No urinary complaints. PHYSICAL EXAMINATION: VITAL SIGNS: Temperature 98.2, pulse 88, blood pressure 138/83. GENERAL APPEARANCE: Seems to have normal weight. HEAD AND NECK: [place] conjunctiva. HEART: Normal rate. LUNGS: Clear. ABDOMEN: Soft and nontender. EXTREMITIES: No edema. NEUROLOGIC: Awake, alert, responsive. LABORATORY AND DIAGNOSTIC DATA: WBC today is 12.7, hemoglobin 14.5, hematocrit 42.4, and platelet 185. Sodium 141, potassium 3.3, chloride 108, bicarb 11, BUN 18, creatinine 1. Creatinine at the time of admission was 1.5. Glucose 155. Hemoglobin A1c 9.6. Chest x-ray showed bibasilar atelectasis and possibly patchy left basilar infiltrate. EKG at the time of admission has bifascicular branch block with right bundle-branch block and left posterior branch block. IMPRESSION: Sepsis versus systemic inflammatory response syndrome with leukocytosis and tachycardia, may have pneumonia, has diabetic ketoacidosis, acute renal failure,Hypokalemia. RECOMMENDATION: Start the patient on ceftriaxone. We will follow up UA and cultures. At the end of my exam, I thank Dr. Noble, for involving me in the care of this patient. Sebas Posada M.D. : Katerina JOB#: [id number] CC: NABILA
--- NOTE | 2020-04-29 12:00 | NUR ---
NURSE NOTES: Pt able to reposition self. Assisted pt with oral care. Pt remains on Insulin drip. 1L NC, O2sat 100%
--- NOTE | 2020-04-29 12:10 | Consultation ---
Consult Note Consult Note I'm asked to evaluate the patient at the request of Dr. Landry for fluid and electrolyte management Patient seen in ICU. Discussed with PATIENCE Cardoso. Emergency room note: Chief Complaint: Dyspnea/Respdistress HPI: 49-year-old male history of diabetes presents for shortness of breath. Sym ptoms present 2 days. He states he feels tightness chest and some chest pain with deep inspiration. Mild cough. Worsening over the past day. Denies fever or chills. Denies nausea or vomiting. Denies history of asthma, COPD, bronchitis, emphysema. Unknown Covid exposure. PMH: Diabetes PSH: Reviewed Allergies: Reviewed Social Hx: Tobacco use Allergies: No Known Allergies (Unverified , 04/28/20) COVID-19 Screening Contact w/high risk pt: No Experienced COVID-19 symptoms?: No COVID-19 Testing performed BACK SIZER: No Hx Diabetes: Yes Vital Signs Date Time Temp Pulse Resp B/P (MAP) Pulse Ox O2 Delivery O2 Flow Rate FiO2 04/28/20 14:12 99.0 118 24 192/101 (131) 88 Room Air PHYSICAL EXAMINATION: VITAL SIGNS: Temperature 98.2, pulse 88, blood pressure 138/83. GENERAL APPEARANCE: Seems to have normal weight. HEAD AND NECK: [employer] conjunctiva. HEART: Normal rate. LUNGS: Clear. ABDOMEN: Soft and nontender. EXTREMITIES: No edema. NEUROLOGIC: Awake, alert, responsive. LABORATORY AND DIAGNOSTIC DATA: WBC today is 12.7, hemoglobin 14.5, hematocrit 42.4, and platelet 185. Sodium 141, potassium 3.3, chloride 108, bicarb 11, BUN 18, creatinine 1. Creatinine at the time of admission was 1.5. Glucose 155. Hemoglobin A1c 9.6. Chest x-ray showed bibasilar atelectasis and possibly patchy left basilar infiltrate. EKG at the time of admission has bifascicular branch block with right bundle-branch block and left posterior branch block. . Assessment/Plan 49-year-old male admitted with DKA Severe electrolyte abnormalities Acute renal failure Leukocytosis, underlying sepsis Hemoconcentration Tachycardia Cardiac conduction defect in the form of bifascicular block with right bundle branch block and left posterior fascicular block Hyperlipemia Suggestions Hydrate Blood sugar control To correct low phosphorus low potassium and other electrolytes abnormalities as needed Per orders Calos Kingsley MD Apr 29, 2020 12:10
--- NOTE | 2020-04-29 14:00 | NUR ---
NURSE NOTES: Pt resting comfortably in bed. Pt remains on Insulin drip- Algorithm 2. BS have been between 120-155mg/dL. No distress noted at this time
--- NOTE | 2020-04-29 15:43 | Cardiology Report ---
APPROVED REPORT EKG Measurement Heart [id number] <Conclusion> sinus Right bundle branch block
--- NOTE | 2020-04-29 15:46 | Cardiology Report ---
APPROVED REPORT EKG Measurement Heart [id number] ID [id number] <Conclusion> Sinus tachycardia Right bundle branch block Left posterior fascicular block Bifascicular block Abnormal ECG
--- NOTE | 2020-04-29 15:47 | Diagnostic Imaging Report ---
Indication: Lower extremity pain Technique: Grayscale and duplex images of the bilateral lower extremity veins Comparison: None Findings: Bilaterally, grayscale and duplex images demonstrate no evidence of intraluminal thrombus. Normal phasic Doppler waveforms, demonstrating normal augmentation response and no evidence of valvular insufficiency. Greater saphenous vein(s) and tibial veins are patent. Normal compressibility. Impression: Negative for evidence of lower extremity deep venous thrombosis bilaterally
--- NOTE | 2020-04-29 16:00 | NUR ---
NURSE NOTES: Pt resting in bed watching TV. No discomfort noted.
[2020-04-29] MEDS ORDERED: Insulin Rate Change 1 Each MISC PRN (16:30)
--- NOTE | 2020-04-29 17:10 | NUR ---
NURSE NOTES: e d tech at bedside performing Abd Ultrasound
--- NOTE | 2020-04-29 17:35 | NUR ---
NURSE NOTES: Abdominal ultrasound complete at this time. Pt running Insulin drip on Algorithm 2; 1 unit/hr.
[2020-04-29] MEDS ORDERED: Insulin Human Regular 100units/ml 3ml IV PRN ×2 (17:45)
--- NOTE | 2020-04-29 18:14 | Consultation ---
DATE OF CONSULTATION: 04/29/2020 ENDOCRINOLOGY CONSULTATION CONSULTING PHYSICIAN: eZ Dutton MD. REFERRING PHYSICIAN: Jesús Noble MD. REASON FOR CONSULTATION: Diabetes management and DKA. HISTORY OF PRESENT ILLNESS: It is important to note the patient is a poor historian. This history is obtained from review of the chart and medical record. The patient is a 49-year-old with past medical history of diabetes, presented to hospital with shortness of breath x2 days. The patient was found to be in DKA, admitted to the ICU and started on insulin drip. I was called to manage diabetes. COVID antigen test was negative. PAST MEDICAL HISTORY: Diabetes, not taking any medications. MEDICATIONS: Reviewed and reconciled. ALLERGIES TO MEDICATIONS: None. FAMILY HISTORY: Noncontributory. SOCIAL HISTORY: No smoking, alcohol, or drug use. REVIEW OF SYSTEMS: As per HPI. LABORATORY DATA: WBC 12.7, hemoglobin 14, hematocrit 42, and platelet count 185. Sodium 141, potassium 3.3, chloride 108, bicarb 11, PHYSICAL EXAMINATION: VITAL SIGNS: Pulse of 94, blood pressure 137/78, respiratory rate of 20. HEENT: Pupils are equal and reactive to light. Sclerae are anicteric. NECK: No JVD. HEART: Regular. LUNGS: Clear. ABDOMEN: Positive bowel sounds. EXTREMITIES: Lower extremity, no clubbing, cyanosis, or edema. DIAGNOSES: 1. Gap acidosis due to lactic acidosis. 2. Diabetes out of control. PLAN: 1. Continue to manage insulin with insulin drip until the acidosis is resolved. 2. Follow the electrolytes and replace. 3. We will convert insulin drip to subcutaneous insulin later on today. I will follow him closely during his stay. Thank you, Dr. Noble, for the courtesy of this consultation. Ze Dutton M.D. DR: PATIENCE/STEPHAN JOB#: [id number] CC: NABILA
--- NOTE | 2020-04-29 18:44 | History and Physical Report ---
DATE OF ADMISSION: 04/28/2020 HISTORY OF PRESENT ILLNESS: The patient was admitted to intensive care unit for DKA. The patient has been complaining of shortness of breath for three days, abdominal pain, vomiting, and weakness for three days. The patient also has history of alcohol abuse. He is diabetic and has history of hypertension as well. Glucose was over 600. The patient was started on insulin drip, also has leukocytosis, and transferred to ICU. The patient feels very fatigued and weak. He also has had abdominal cramp for a couple of days. PAST MEDICAL HISTORY: History of alcohol abuse, history of NIDDM, history of hypertension, hyperlipidemia. PAST SURGICAL HISTORY: Denies. MEDICATIONS: The patient has been taking lisinopril, insulin in the past as well as Lipitor with some noncompliance at times. ALLERGIES: No known allergies. FAMILY HISTORY: Does have history of diabetes and hypertension. REVIEW OF SYSTEMS: HEENT: Denies headaches. RESPIRATORY: shortness of breath. Denies cough. CARDIOVASCULAR: Denies chest pain. Denies orthopnea. GASTROINTESTINAL: Reports vomiting. Denies hematemesis. He has abdominal pain and weakness for three days. EXTREMITIES: Denies pain in lower extremities. CENTRAL NERVOUS SYSTEM: He feels fatigued and weak throughout the body for about three days. PHYSICAL EXAMINATION: VITAL SIGNS: Temperature is 98.3, pulse is 90, blood pressure 136/82. HEENT: PERRLA. NECK: Supple. No lymphadenopathy. CHEST: Clear to auscultation. CARDIOVASCULAR: Regular rate and rhythm. No murmurs or extra sounds. GASTROINTESTINAL: Soft. Positive bowel sounds. No organomegaly. EXTREMITIES: No edema. Reflexes equal on both sides. He has generalized weakness. LABORATORY AND DIAGNOSTIC DATA: WBC of 18.6, hemoglobin 16.3, platelets 273. Sodium 141, potassium of 3.3, BUN of 18, creatinine of 1, glucose of 155. ASSESSMENT AND PLAN: Initially, the patient was in DKA while in the emergency room. The patient also has shortness of breath most likely due to DKA and the patient also has elevated LFTs, could be due to alcohol abuse as well as acute renal failure most likely due to dehydration. The patient admitted for those reasons. He has been admitted to ICU for DKA on insulin drip, elevated LFTs, azotemia, vomiting, weakness, and abdominal pain. I have consulted Dr. Ordonez, Dr. Renard Argueta, Dr. Kingsley, Dr. Dutton, Dr. Nigel Ray, Dr. Sebas Posada, and Dr. Rodriguez to help with the management of the azotemia, LFT elevation, DKA as well as for management of the leukocytosis that could also be due to stress of DKA. We will follow this patient closely. Jesús Noble M.D. DR: Stephie JOB#: [id number] CC:
--- NOTE | 2020-04-29 19:12 | NUR ---
NURSE HAND-OFF REPORT: Latest Vital Signs: Temperature 98.2 , Pulse 83 , B/P 113 /70 , Respiratory Rate 24 , O2 SAT 99 , Mechanical Ventilator, 50% FiO2 . Vital Sign Comment: EKG Rhythm: Sinus Rhythm Rhythm change?: N Notified?: - Response: Latest Lewis Fall Score: 35 Fall Risk: Medium Risk Safety Measures: Call light Within Reach, Bed Alarm Zone 1, Side Rails Side Rails x2, Bed position Low and Locked. Fall Precautions: Yellow Socks Patient Fall Education Report given to PATIENCE Monk. Addendum: 04/29/20 at 1914 by Janae Yan RN Error in documentation: Pt is on MO 1L.
--- NOTE | 2020-04-29 19:15 | NUR ---
NURSE NOTES: Received report from Janae MORIN.
--- NOTE | 2020-04-29 20:00 | NUR ---
NURSE NOTES: Patient in bed awake,alert oriented x4, with clear speech. Watching TV. on 1L oxygen via N/C satting 100%. No s/s of hypo/hyperglycemia. no s/s of acute distress noted. on Regular Insulin drip at 4units/hr Blood glucose 200mg/dl. Urinal at bedside. Temp 98.4 Axillary.call light within easy reach.will continue plan of care.
--- NOTE | 2020-04-29 20:59 | Consultation ---
DATE OF CONSULTATION: 04/29/2020 CHIEF COMPLAINT: I was asked to see this patient by Dr. Jesús Noble for evaluation of abnormal liver tests. HISTORY OF PRESENT ILLNESS: The patient is a 49-year-old man with a history of diabetes, off medications, who comes in with diabetic ketoacidosis. He has been seen in the intensive care unit on insulin drip. The patient denies any abdominal complaints now. He does have a past history of pancreatitis. He drinks four beers per day for about the past 6 years. He had some mild epigastric abdominal discomfort earlier which is the main complaint. He feels hungry and wants to eat. PAST MEDICAL HISTORY: History of diabetes, off medications. FAMILY HISTORY: Negative for liver disease. SOCIAL HISTORY: The patient drinks as described above, but does not smoke. He is . REVIEW OF SYSTEMS: There is no personal history of liver disease or hepatitis. PHYSICAL EXAMINATION: GENERAL: Well-developed and well-nourished man seen in intensive care unit. HEENT: Normocephalic and atraumatic. Sclerae anicteric. Oropharynx clear. NECK: Supple. CHEST: Clear to auscultation. CARDIOVASCULAR: Regular rate. ABDOMEN: Soft, flat, and nontender. EXTREMITIES: No edema. LABORATORY DATA: Laboratory data noted. AST and ALT were 69 and 55 respectively with alkaline phosphatase of 124. There is normal bilirubin. ASSESSMENT: This patient has some mild transaminitis of unclear etiology. Given his diabetes and the diabetic ketoacidosis, nonalcoholic steatohepatitis. Hepatitis B and C will also have to be ruled out and also an abdominal ultrasound should be done to evaluate for mass lesions. For the time being, the management will be conservative and the above workup will be initiated. Oral diet can be continued since the patient has no contraindications. RECOMMENDATIONS: 1. Begin oral diet with diabetic diet. 2. Check abdominal ultrasound tomorrow. 3. Check hepatitis B and C serologies. Saima Rodriguez M.D. DR: Trupti JOB#: [id number] CC:
[2020-04-29] MEDS: Atorvastatin 20mg tab ORAL SCH (21:09)
--- NOTE | 2020-04-29 23:00 | NUR ---
NURSE NOTES: Blood glucose 80mg/dl hold insulin drip for 30 min will recheck blood glucose at 2330. patient in bed no s/s of hypo/hyperglycemia. call light within easy reach.
--- NOTE | 2020-04-29 23:30 | NUR ---
blood glucose 100mg/dl continue Insulin drip at 0.5units/hr. pt in bed resting. denies any pain or discomfort. will continue plan of care.
[2020-04-30] VITALS (28 sets, daily range): BP systolic 88–113; BP diastolic 44–74
--- NOTE | 2020-04-30 02:00 | NUR ---
NURSE NOTES: Patient in bed sleeping comfortably. no s/s of hypo/hyperglycemia. patient with 100% saturation room air.
--- NOTE | 2020-04-30 04:00 | NUR ---
NURSE NOTES: patient in bed sleeping comfortably. blood glucose 93mg/dl on regular insulin at 0.5units/hr. used urinal with 900cc light tonja urine.
[2020-04-30] MEDS: NS w/KCl 20mEq 1000ml 1,000 ML IV SCH ×2 (04:01→17:15)
[2020-04-30 05:07] LABS: HEMATOCRIT 44.1 % (42.0-52.0); HEMOGLOBIN 14.5 G/DL (14.2-18.0); MEAN CORPUSCULAR VOLUME 96 FL (80-99); PLATELET COUNT 184 K/UL (150-450); RED CELL DISTRIBUTION WIDTH 11.8 % (11.6-14.8); WHITE BLOOD COUNT 12.6 K/UL (4.8-10.8)
[2020-04-30 05:51] LABS: ALANINE AMINOTRANSFERASE 40 U/L (12-78); ALBUMIN 2.5 G/DL (3.4-5.0); ALBUMIN/GLOBULIN RATIO 0.8 (1.0-2.7); ALKALINE PHOSPHATASE 64 U/L (46-116); ANION GAP 17 mmol/L (5-15); ASPARTATE AMINO TRANSFERASE 46 U/L (15-37); BILIRUBIN,TOTAL 0.4 MG/DL (0.2-1.0); BLOOD UREA NITROGEN 8 mg/dL (7-18); CARBON DIOXIDE 14 MMOL/L (21-32); CHLORIDE 108 MMOL/L (98-107); CREATININE 0.7 MG/DL (0.55-1.30); SODIUM 139 MMOL/L (136-145)
[2020-04-30 05:56] LABS: CREATINE KINASE 62 U/L (26-308)
--- NOTE | 2020-04-30 06:00 | NUR ---
NURSE NOTES: Patient in bed sleeping comfortably, easily arousable to verbal and tactile stimuli. No SOB, satting 100% room air. No s/s of hypo/hyperglycemia. no s/s of acute distress noted. on Regular Insulin drip at 1 units/hr Blood glucose 110mg/dl. Urinal at bedside. call light within easy reach.will continue plan of care.
[2020-04-30 06:03] LABS: POTASSIUM 2.7 MMOL/L (3.5-5.1)
--- NOTE | 2020-04-30 07:00 | General Progress Note ---
Subjective Allergies: Coded Allergies: No Known Allergies (Unverified , 04/28/20) All Systems: reviewed and negative except above Subjective events noted in ICU on insulin gtt diet initiated AG is still open Item Value Date Time Bedside Blood Glucose 110 mg/dl 04/30/20 0600 Bedside Blood Glucose 180 mg/dl H 04/30/20 0200 Bedside Blood Glucose 118 mg/dl 04/29/20 2200 Bedside Blood Glucose 127 mg/dl H 04/29/20 1823 Bedside Blood Glucose 128 mg/dl H 04/29/20 1400 Bedside Blood Glucose 131 mg/dl H 04/29/20 1000 Objective Last 24 Hour Vital Signs Date Time Temp Pulse Resp B/P (MAP) Pulse Ox O2 Delivery O2 Flow Rate FiO2 04/30/20 06:00 68 15 98/63 (75) 100 04/30/20 05:30 65 25 103/62 (76) 99 04/30/20 05:00 67 17 95/56 (69) 100 04/30/20 04:00 Room Air 04/30/20 04:00 98.4 68 17 101/58 (72) 100 04/30/20 04:00 71 04/30/20 03:30 69 19 100/61 (74) 100 04/30/20 03:00 66 11 92/61 (71) 100 04/30/20 02:00 68 13 92/63 (73) 100 04/30/20 01:00 66 13 97/59 (72) 99 04/30/20 00:30 64 13 92/55 (67) 99 04/30/20 00:06 69 12 93/53 (66) 100 04/30/20 00:00 98.0 75 16 88/54 (65) 100 04/30/20 00:00 Room Air 04/30/20 00:00 66 04/29/20 23:00 70 15 91/57 (68) 100 04/29/20 22:00 77 20 103/66 (78) 100 04/29/20 21:00 70 14 97/64 (75) 100 04/29/20 21:00 98/70 04/29/20 20:00 98.4 79 18 105/72 (83) 100 04/29/20 20:00 70 04/29/20 20:00 Nasal Cannula 1.0 04/29/20 19:00 83 24 113/70 (84) 99 04/29/20 18:00 93 25 106/58 (74) 100 04/29/20 17:00 84 16 100/63 (75) 100 04/29/20 16:00 Nasal Cannula 1.0 04/29/20 16:00 98.2 75 14 102/62 (75) 100 04/29/20 16:00 75 04/29/20 15:30 73 17 112/66 (81) 100 04/29/20 15:00 73 18 114/65 (81) 100 04/29/20 14:30 77 12 101/63 (76) 99 04/29/20 14:00 77 12 96/60 (72) 100 04/29/20 13:00 76 13 100/61 (74) 100 04/29/20 12:30 77 13 99/61 (74) 100 04/29/20 12:00 Nasal Cannula 1.0 04/29/20 12:00 98.4 75 18 110/64 (79) 100 04/29/20 12:00 98 04/29/20 11:30 84 19 113/62 (79) 100 04/29/20 11:00 82 18 109/68 (82) 100 04/29/20 10:30 85 14 105/76 (86) 100 04/29/20 10:00 90 22 119/85 (96) 100 04/29/20 09:30 73 20 143/80 (101) 100 04/29/20 09:13 100 Nasal Cannula 1.0 24 04/29/20 09:00 88 19 138/83 (101) 100 04/29/20 08:52 124/74 04/29/20 08:30 87 16 124/74 (91) 99 04/29/20 08:00 Nasal Cannula 1.0 04/29/20 08:00 90 04/29/20 08:00 98.2 90 21 136/82 (100) 100 04/29/20 07:45 100 Nasal Cannula 3.0 32 04/29/20 07:00 79 18 140/83 (102) 100 Intake and Output 04/29/20 04/30/20 19:00 07:00 Intake Total 2730.599 ml 1620.615 ml Output Total 2000 ml 1400 ml Balance 730.599 ml 220.615 ml Intake Oral 1220 ml 500 ml IV Total 1510.599 ml 1120.615 ml Output Urine Total 2000 ml 1400 ml Laboratory Tests 04/29/20 08:58: Arterial Blood pH 7.325L, Arterial Blood Partial Pressure CO2 22.4*L, Arterial Blood Partial Pressure O2 144.9H, Arterial Blood HCO3 11.4*L, Arterial Blood Oxygen Saturation 97.6, Arterial Blood Base Excess -12.4*L, Sage Test Positive 04/29/20 10:00: Lactic Acid Level 1.60 04/30/20 03:50: White Blood Count 12.6H, Red Blood Count 4.60L, Hemoglobin 14.5, Hematocrit 44. 1, Mean Corpuscular Volume 96, Mean Corpuscular Hemoglobin 31.6H, Mean Corpuscular Hemoglobin Concent 32.9, Red Cell Distribution Width 11.8, Platelet Count 184, Mean Platelet Volume 7.3, Neutrophils (%) (Auto) , Lymphocytes (%) (Auto) , Monocytes (%) (Auto) , Eosinophils (%) (Auto) , Basophils (%) (Auto) , Neutrophils % (Manual) [Pending], Lymphocytes % (Manual) [Pending], Platelet Estimate [Pending], Platelet Morphology [Pending], Sodium Level 139, Potassium Level 2.7*L, Chloride Level 108H, Carbon Dioxide Level 14L, Anion Gap 17H, Blood Urea Nitrogen 8, Creatinine 0.7, Estimat Glomerular Filtration Rate > 60, Glucose Level 90, Calcium Level 9.0, Total Bilirubin 0.4, Aspartate Amino Transf (AST/SGOT) 46H, Alanine Aminotransferase (ALT/SGPT) 40, Alkaline Phosphatase 64, Total Creatine Kinase 62, Troponin I 0.006, Pro-B-Type Natriuretic Peptide 239H, Total Protein 5.6L, Albumin 2.5L, Globulin 3.1, Albumin/Globulin Ratio 0.8L, Free Thyroxine 0.90, Hepatitis A IgM Antibody [Pending], Hepatitis B Surface Antigen [Pending], Hepatitis B Core IgM Antibody [Pending], Hepatitis C Antibody [Pending] Height (Feet): 5 Height (Inches): 7.00 Weight (Pounds): 137 General Appearance: no apparent distress Neck: normal alignment Cardiovascular: normal rate Respiratory/Chest: lungs clear Abdomen: normal bowel sounds Objective Current Medications Medications (Trade) Dose Ordered Sig/Jazzmine Route PRN Reason Start Time Stop Time Status Last Admin Dose Admin Atorvastatin Calcium (Lipitor) 20 mg BEDTIME ORAL 04/29/20 21:00 07/28/20 20:59 04/29/20 21:09 Ceftriaxone Sodium 1 gm/ Dextrose 55 ml @ 110 mls/hr Q24H IVPB 04/29/20 11:00 05/06/20 10:59 04/29/20 11:33 Clonidine HCl (Catapres Tab) 0.1 mg Q2H PRN ORAL SBP above 170 04/28/20 23:15 07/27/20 23:14 Dextrose (Dextrose 50%) 25 ml Q30M PRN IV HYPOGLYCEMIA 04/29/20 17:45 07/28/20 17:44 Dextrose (Dextrose 50%) 50 ml Q30M PRN IV HYPOGLYCEMIA 04/29/20 17:45 07/28/20 17:44 Enoxaparin Sodium (Lovenox) 40 mg DAILY SUBQ 04/29/20 09:00 07/28/20 08:59 04/29/20 08:56 Insulin Human Regular (NovoLIN R) 5 units PRN PRN IV BS 200-299 04/29/20 17:45 07/28/20 17:44 04/29/20 21:00 Insulin Human Regular (NovoLIN R) 10 units PRN PRN IV BS=>300 04/29/20 17:45 07/28/20 17:44 Insulin Human Regular 100 units/ Sodium Chloride 101 ml @ 0 mls/hr Q24H IV 04/29/20 17:45 05/29/20 17:44 04/29/20 18:23 Lisinopril (ZestriL) 10 mg EVERY 12 HOURS ORAL 04/29/20 09:00 05/29/20 08:59 04/29/20 08:52 Pantoprazole (Protonix) 40 mg EVERY 12 HOURS IVP 04/28/20 21:00 05/28/20 20:59 04/29/20 21:08 Potassium Chloride/Sodium Chloride 1,000 ml @ 100 mls/hr Q10H IV 04/28/20 23:45 05/28/20 23:44 04/30/20 04:01 Assessment/Plan Problem List: (1) DKA (diabetic ketoacidoses) ICD Codes: E11.10 - Type 2 diabetes mellitus with ketoacidosis without coma SNOMED: 844517737, 67097743 (2) Hyperglycemia ICD Codes: R73.9 - Hyperglycemia, unspecified SNOMED: 58210503 (3) Elevated WBC count ICD Codes: D72.829 - Elevated white blood cell count, unspecified SNOMED: 525916221, 912096271 (4) JEREMY (acute kidney injury) ICD Codes: N17.9 - Acute kidney failure, unspecified SNOMED: 26214287, 5490322 (5) Elevated d-dimer ICD Codes: R79.89 - Other specified abnormal findings of blood chemistry SNOMED: 520940188 Assessment/Plan: continue insulin gtt until AG is closed then will initiate basal bolus insulin regimen repeat BMP a noon today Ze Dutton MD Apr 30, 2020 07:00
--- NOTE | 2020-04-30 07:30 | NUR ---
NURSE HAND-OFF REPORT: Latest Vital Signs: Temperature 98.4 , Pulse 68 , B/P 98 /63 , Respiratory Rate 15 , O2 SAT 100 , Nasal Cannula, O2 Flow Rate 1.0 . Vital Sign Comment: EKG Rhythm: Sinus Rhythm Rhythm change?: N MD Notified?: - MD Response: Latest Lewis Fall Score: 35 Fall Risk: Medium Risk Safety Measures: Call light Within Reach, Bed Alarm Zone 1, Side Rails Side Rails x2, Bed position Low and Locked. Fall Precautions: Yellow Socks Patient Fall Education Report given to Siobhan MORIN.
--- NOTE | 2020-04-30 07:35 | NUR ---
NURSE NOTES: Report received from Aleshia Braxton RN.Pt resting in bed awake,alert in no resp distress on RA,denies any c/o pain or discomfort,SR on the monitor,voids per urinal, ate with good appetite,skin warm and dry with Insulin drip to RH and IVF NS +20 meq KCL at 100 ml/hr,SR up x2 HOB elevated bed lock in lowest position will continue with plans of care.
--- NOTE | 2020-04-30 09:00 | NUR ---
NURSE NOTES: Pt stable,no distress or sob presented,BS checked q 1hr.
[2020-04-30] MEDS: Pantoprazole Inj IVP SCH ×2 (09:28→21:24)
[2020-04-30] MEDS: Lisinopril 10mg tab ORAL SCH ×2 (09:29→21:00)
[2020-04-30] MEDS: Enoxaparin 40mg Inj SUBQ SCH (09:30)
[2020-04-30] MEDS ORDERED: Tubing IV Secondary IV ONE (09:42)
[2020-04-30] MEDS ORDERED: NS 275ml ONE (09:42)
--- NOTE | 2020-04-30 10:00 | NUR ---
NURSE NOTES: Dr Kingsley at bedside,urine ordered sent to lab.
[2020-04-30 10:15] LABS: APPEARANCE,URINE SLIGHTLY CLOUDY; BILIRUBIN, URINE NEGATIVE (NEGATIVE); COLOR,URINE PALE YELLOW; GLUCOSE, URINE (UA) 4+ (NEGATIVE); KETONES,URINE 3+ (NEGATIVE); LEUKOCYTE ESTERASE ,URINE 2+ (NEGATIVE); NITRITE,URINE NEGATIVE (NEGATIVE); PH,URINE 5 (4.5-8.0); PROTEIN,URINE NEGATIVE (NEGATIVE); UROBILINOGEN,URINE NORMAL MG/DL (0.0-1.0)
--- NOTE | 2020-04-30 10:22 | Pulmonology Progress Note ---
Subjective Interval Events: Remains on insulin gtt Constitutional: Reports: no symptoms HEENT: Repors: no symptoms Respiratory: Reports: no symptoms Cardiovascular: Reports: no symptoms Gastrointestinal/Abdominal: Reports: no symptoms Genitourinary: Reports: no symptoms Allergies: Coded Allergies: No Known Allergies (Unverified , 04/28/20) All Systems: reviewed and negative except above Objective Last 24 Hour Vital Signs Date Time Temp Pulse Resp B/P (MAP) Pulse Ox O2 Delivery O2 Flow Rate FiO2 04/30/20 09:29 104/63 04/30/20 08:00 98.0 72 18 104/63 (77) 100 04/30/20 08:00 Room Air 04/30/20 08:00 74 04/30/20 06:00 68 15 98/63 (75) 100 04/30/20 05:30 65 25 103/62 (76) 99 04/30/20 05:00 67 17 95/56 (69) 100 04/30/20 04:00 Room Air 04/30/20 04:00 98.4 68 17 101/58 (72) 100 04/30/20 04:00 71 04/30/20 03:30 69 19 100/61 (74) 100 04/30/20 03:00 66 11 92/61 (71) 100 04/30/20 02:00 68 13 92/63 (73) 100 04/30/20 01:00 66 13 97/59 (72) 99 04/30/20 00:30 64 13 92/55 (67) 99 04/30/20 00:06 69 12 93/53 (66) 100 04/30/20 00:00 98.0 75 16 88/54 (65) 100 04/30/20 00:00 Room Air 04/30/20 00:00 66 04/29/20 23:00 70 15 91/57 (68) 100 04/29/20 22:00 77 20 103/66 (78) 100 04/29/20 21:00 70 14 97/64 (75) 100 04/29/20 21:00 98/70 04/29/20 20:00 98.4 79 18 105/72 (83) 100 04/29/20 20:00 70 04/29/20 20:00 Nasal Cannula 1.0 04/29/20 19:00 83 24 113/70 (84) 99 04/29/20 18:00 93 25 106/58 (74) 100 04/29/20 17:00 84 16 100/63 (75) 100 04/29/20 16:00 Nasal Cannula 1.0 04/29/20 16:00 98.2 75 14 102/62 (75) 100 04/29/20 16:00 75 04/29/20 15:30 73 17 112/66 (81) 100 04/29/20 15:00 73 18 114/65 (81) 100 04/29/20 14:30 77 12 101/63 (76) 99 04/29/20 14:00 77 12 96/60 (72) 100 04/29/20 13:00 76 13 100/61 (74) 100 04/29/20 12:30 77 13 99/61 (74) 100 04/29/20 12:00 Nasal Cannula 1.0 04/29/20 12:00 98.4 75 18 110/64 (79) 100 04/29/20 12:00 98 04/29/20 11:30 84 19 113/62 (79) 100 04/29/20 11:00 82 18 109/68 (82) 100 04/29/20 10:30 85 14 105/76 (86) 100 Intake and Output 04/29/20 04/30/20 19:00 07:00 Intake Total 2730.599 ml 1620.615 ml Output Total 2000 ml 1400 ml Balance 730.599 ml 220.615 ml Intake Oral 1220 ml 500 ml IV Total 1510.599 ml 1120.615 ml Output Urine Total 2000 ml 1400 ml General Appearance: no acute distress HEENT: normocephalic Respiratory: chest wall non-tender, lungs clear Cardiovascular: normal peripheral pulses, normal rate Abdomen: normal bowel sounds Microbiology Date/Time Source Procedure Growth Status 04/28/20 14:52 Nasopharynx SARS-CoV-2 Antigen (Rapid)(SELENE) - Final Complete Laboratory Tests 04/30/20 03:50: White Blood Count 12.6H, Red Blood Count 4.60L, Hemoglobin 14.5, Hematocrit 44.1, Mean Corpuscular Volume 96, Mean Corpuscular Hemoglobin 31.6H, Mean Corpuscular Hemoglobin Concent 32.9, Red Cell Distribution Width 11.8, Platelet Count 184, Mean Platelet Volume 7.3, Neutrophils (%) (Auto) , Lymphocytes (%) (Auto) , Monocytes (%) (Auto) , Eosinophils (%) (Auto) , Basophils (%) (Auto) , Neutrophils % (Manual) [Pending], Lymphocytes % (Manual) [Pending], Platelet Estimate [Pending], Platelet Morphology [Pending], Sodium Level 139, Potassium Level 2.7*L, Chloride Level 108H, Carbon Dioxide Level 14L, Anion Gap 17H, Blood Urea Nitrogen 8, Creatinine 0.7, Estimat Glomerular Filtration Rate > 60, Glucose Level 90, Calcium Level 9.0, Phosphorus Level 2.7, Magnesium Level 1.7L, Total Bilirubin 0.4, Aspartate Amino Transf (AST/SGOT) 46H, Alanine Aminotransferase (ALT/SGPT) 40, Alkaline Phosphatase 64, Total Creatine Kinase 62, Troponin I 0.006, Pro-B-Type Natriuretic Peptide 239H, Total Protein 5.6L, Albumin 2.5L, Globulin 3.1, Albumin/Globulin Ratio 0.8L, Free Thyroxine 0.90, Hepatitis A IgM Antibody [Pending], Hepatitis B Surface Antigen [Pending], Hepatitis B Core IgM Antibody [Pending], Hepatitis C Antibody [Pending] 04/30/20 08:45: D-Dimer 1.88H 04/30/20 10:00: Urine Color Pale yellow, Urine Appearance Slightly cloudy, Urine pH 5, Urine Specific [place] 1.015, Urine Protein Negative, Urine Glucose (UA) 4+H, Urine Ketones 3+H, Urine Blood Negative, Urine Nitrite Negative, Urine Bilirubin Negative, Urine Urobilinogen Normal, Urine Leukocyte Esterase 2+H, Urine RBC [Pending], Urine WBC [Pending], Urine Squamous Epithelial Cells [Pending], Urine Bacteria [Pending], Urine Opiates Screen [Pending], Urine Barbiturates Screen [Pending], Phencyclidine (PCP) Screen [Pending], Urine Amphetamines Screen [Pending], Urine Benzodiazepines Screen [Pending], Urine Cocaine Screen [Pending], Urine Marijuana (THC) Screen [Pending] Current Medications Medications (Trade) Dose Ordered Sig/Jazzmine Route PRN Reason Start Time Stop Time Status Last Admin Dose Admin Atorvastatin Calcium (Lipitor) 20 mg BEDTIME ORAL 04/29/20 21:00 07/28/20 20:59 04/29/20 21:09 Ceftriaxone Sodium 1 gm/ Sodium Chloride 55 ml @ 110 mls/hr Q24H IVPB 04/30/20 11:00 05/06/20 10:59 Clonidine HCl (Catapres Tab) 0.1 mg Q2H PRN ORAL SBP above 170 04/28/20 23:15 07/27/20 23:14 Dextrose (Dextrose 50%) 25 ml Q30M PRN IV HYPOGLYCEMIA 04/29/20 17:45 07/28/20 17:44 Dextrose (Dextrose 50%) 50 ml Q30M PRN IV HYPOGLYCEMIA 04/29/20 17:45 07/28/20 17:44 Enoxaparin Sodium (Lovenox) 40 mg DAILY SUBQ 04/29/20 09:00 07/28/20 08:59 04/30/20 09:30 Insulin Human Regular (NovoLIN R) 5 units PRN PRN IV BS 200-299 04/29/20 17:45 07/28/20 17:44 04/29/20 21:00 Insulin Human Regular (NovoLIN R) 10 units PRN PRN IV BS=>300 04/29/20 17:45 07/28/20 17:44 Insulin Human Regular 100 units/ Sodium Chloride 101 ml @ 0 mls/hr Q24H IV 04/29/20 17:45 05/29/20 17:44 04/29/20 18:23 Lisinopril (ZestriL) 10 mg EVERY 12 HOURS ORAL 04/29/20 09:00 05/29/20 08:59 04/30/20 09:29 Pantoprazole (Protonix) 40 mg EVERY 12 HOURS IVP 04/28/20 21:00 05/28/20 20:59 04/30/20 09:28 Potassium Chloride/Sodium Chloride 1,000 ml @ 100 mls/hr Q10H IV 04/28/20 23:45 05/28/20 23:44 04/30/20 04:01 Potassium Chloride 100 ml @ 100 mls/hr Q1HR IVPB 04/30/20 09:00 04/30/20 12:59 04/30/20 09:29 Assessment/Plan Assessment/Plan 1. Leukocytosis with neutrophil predominance 2. DKA -On IV fluids and insulin drip 3. Rapid COVID-19 negative (04/28) 4. Elevated D-dimer - Continue Lovenox for DVT ppx 5. Hypoxia - continue supplemental O2 Nigel Ray MD Apr 30, 2020 10:22
--- NOTE | 2020-04-30 10:46 | Nephrology Progress Note ---
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 Urine tox screen negative. Low magnesium and low potassium addressed. Continue per consultants. Previously: Hydrate Blood sugar control To correct low phosphorus low potassium and other electrolytes abnormalities as needed Per orders Subjective ROS Limited/Unobtainable: No Constitutional: Reports: malaise Objective Objective Last 24 Hour Vital Signs Date Time Temp Pulse Resp B/P (MAP) Pulse Ox O2 Delivery O2 Flow Rate FiO2 04/30/20 09:29 104/63 04/30/20 08:00 98.0 72 18 104/63 (77) 100 04/30/20 08:00 Room Air 04/30/20 08:00 74 04/30/20 06:00 68 15 98/63 (75) 100 04/30/20 05:30 65 25 103/62 (76) 99 04/30/20 05:00 67 17 95/56 (69) 100 04/30/20 04:00 Room Air 04/30/20 04:00 98.4 68 17 101/58 (72) 100 04/30/20 04:00 71 04/30/20 03:30 69 19 100/61 (74) 100 04/30/20 03:00 66 11 92/61 (71) 100 04/30/20 02:00 68 13 92/63 (73) 100 04/30/20 01:00 66 13 97/59 (72) 99 04/30/20 00:30 64 13 92/55 (67) 99 04/30/20 00:06 69 12 93/53 (66) 100 04/30/20 00:00 98.0 75 16 88/54 (65) 100 04/30/20 00:00 Room Air 04/30/20 00:00 66 04/29/20 23:00 70 15 91/57 (68) 100 04/29/20 22:00 77 20 103/66 (78) 100 04/29/20 21:00 70 14 97/64 (75) 100 04/29/20 21:00 98/70 04/29/20 20:00 98.4 79 18 105/72 (83) 100 04/29/20 20:00 70 04/29/20 20:00 Nasal Cannula 1.0 04/29/20 19:00 83 24 113/70 (84) 99 04/29/20 18:00 93 25 106/58 (74) 100 04/29/20 17:00 84 16 100/63 (75) 100 04/29/20 16:00 Nasal Cannula 1.0 04/29/20 16:00 98.2 75 14 102/62 (75) 100 04/29/20 16:00 75 04/29/20 15:30 73 17 112/66 (81) 100 04/29/20 15:00 73 18 114/65 (81) 100 04/29/20 14:30 77 12 101/63 (76) 99 04/29/20 14:00 77 12 96/60 (72) 100 04/29/20 13:00 76 13 100/61 (74) 100 04/29/20 12:30 77 13 99/61 (74) 100 04/29/20 12:00 Nasal Cannula 1.0 04/29/20 12:00 98.4 75 18 110/64 (79) 100 04/29/20 12:00 98 04/29/20 11:30 84 19 113/62 (79) 100 04/29/20 11:00 82 18 109/68 (82) 100 Intake and Output 04/29/20 04/30/20 19:00 07:00 Intake Total 2730.599 ml 1620.615 ml Output Total 2000 ml 1400 ml Balance 730.599 ml 220.615 ml Intake Oral 1220 ml 500 ml IV Total 1510.599 ml 1120.615 ml Output Urine Total 2000 ml 1400 ml Current Medications Medications (Trade) Dose Ordered Sig/Jazzmine Route PRN Reason Start Time Stop Time Status Last Admin Dose Admin Atorvastatin Calcium (Lipitor) 20 mg BEDTIME ORAL 04/29/20 21:00 07/28/20 20:59 04/29/20 21:09 Ceftriaxone Sodium 1 gm/ Sodium Chloride 55 ml @ 110 mls/hr Q24H IVPB 04/30/20 11:00 3/9/21 10:59 Clonidine HCl (Catapres Tab) 0.1 mg Q2H PRN ORAL SBP above 170 04/28/20 23:15 07/27/20 23:14 Dextrose (Dextrose 50%) 25 ml Q30M PRN IV HYPOGLYCEMIA 04/29/20 17:45 07/28/20 17:44 Dextrose (Dextrose 50%) 50 ml Q30M PRN IV HYPOGLYCEMIA 04/29/20 17:45 07/28/20 17:44 Enoxaparin Sodium (Lovenox) 40 mg DAILY SUBQ 04/29/20 09:00 07/28/20 08:59 04/30/20 09:30 Insulin Human Regular (NovoLIN R) 5 units PRN PRN IV BS 200-299 04/29/20 17:45 07/28/20 17:44 04/29/20 21:00 Insulin Human Regular (NovoLIN R) 10 units PRN PRN IV BS=>300 04/29/20 17:45 07/28/20 17:44 Insulin Human Regular 100 units/ Sodium Chloride 101 ml @ 0 mls/hr Q24H IV 04/29/20 17:45 05/29/20 17:44 04/29/20 18:23 Lisinopril (ZestriL) 10 mg EVERY 12 HOURS ORAL 04/29/20 09:00 05/29/20 08:59 04/30/20 09:29 Pantoprazole (Protonix) 40 mg EVERY 12 HOURS IVP 04/28/20 21:00 05/28/20 20:59 04/30/20 09:28 Potassium Chloride/Sodium Chloride 1,000 ml @ 100 mls/hr Q10H IV 04/28/20 23:45 05/28/20 23:44 04/30/20 04:01 Potassium Chloride 100 ml @ 100 mls/hr Q1HR IVPB 04/30/20 09:00 04/30/20 12:59 04/30/20 09:29 Laboratory Tests 04/30/20 03:50: White Blood Count 12.6H, Red Blood Count 4.60L, Hemoglobin 14.5, Hematocrit 44.1, Mean Corpuscular Volume 96, Mean Corpuscular Hemoglobin 31.6H, Mean Corpuscular Hemoglobin Concent 32.9, Red Cell Distribution Width 11.8, Platelet Count 184, Mean Platelet Volume 7.3, Neutrophils (%) (Auto) , Lymphocytes (%) (Auto) , Monocytes (%) (Auto) , Eosinophils (%) (Auto) , Basophils (%) (Auto) , Differential Total Cells Counted 100, Neutrophils % (Manual) 71, Lymphocytes % (Manual) 8L, Monocytes % (Manual) 7, Eosinophils % (Manual) 0, Basophils % (Manual) 2, Band Neutrophils 12H, Platelet Estimate Adequate, Platelet Morphology Normal, Red Blood Cell Morphology Normal, Sodium Level 139, Potassium Level 2.7*L, Chloride Level 108H, Carbon Dioxide Level 14L, Anion Gap 17H, Blood Urea Nitrogen 8, Creatinine 0.7, Estimat Glomerular Filtration Rate > 60, Glucose Level 90, Calcium Level 9.0, Phosphorus Level 2.7, Magnesium Level 1.7L, Total Bilirubin 0.4, Aspartate Amino Transf (AST/SGOT) 46H, Alanine Aminotransferase (ALT/SGPT) 40, Alkaline Phosphatase 64, Total Creatine Kinase 62, Troponin I 0.006, Pro-B-Type Natriuretic Peptide 239H, Total Protein 5.6L, Albumin 2.5L, Globulin 3.1, Albumin/Globulin Ratio 0.8L, Free Thyroxine 0.90, Hepatitis A IgM Antibody [Pending], Hepatitis B Surface Antigen [Pending], Hepatitis B Core IgM Antibody [Pending], Hepatitis C Antibody [Pending] 04/30/20 08:45: D-Dimer 1.88H 04/30/20 10:00: Urine Color Pale yellow, Urine Appearance Slightly cloudy, Urine pH 5, Urine Specific [place] 1.015, Urine Protein Negative, Urine Glucose (UA) 4+H, Urine Ketones 3+H, Urine Blood Negative, Urine Nitrite Negative, Urine Bilirubin N egative, Urine Urobilinogen Normal, Urine Leukocyte Esterase 2+H, Urine RBC 0-2H , Urine WBC 15-20H, Urine Squamous Epithelial Cells Few, Urine Bacteria ModerateH, Urine Yeast ModerateH, Urine Opiates Screen Negative, Urine Barbiturates Screen Negative, Phencyclidine (PCP) Screen Negative, Urine Amphetamines Screen Negative, Urine Benzodiazepines Screen Negative, Urine Cocaine Screen Negative, Urine Marijuana (THC) Screen Negative Height (Feet): 5 Height (Inches): 7.00 Weight (Pounds): 137 General Appearance: no apparent distress EENT: other - Oxygen in room air Cardiovascular: normal rate Respiratory/Chest: decreased breath sounds Abdomen: distended Calos Kingsley MD Apr 30, 2020 10:46
--- NOTE | 2020-04-30 10:48 | Infectious Diseases Prog Note ---
Assessment/Plan Assessment/Plan IMPRESSION: Sepsis versus systemic inflammatory response syndrome Pyuria, ? UTI Pneumonia, Diabetic ketoacidosis, Acute renal failure, RECOMMENDATION: Continue ceftriaxone. Subjective ROS Limited/Unobtainable: Yes Respiratory: Reports: no symptoms Gastrointestinal/Abdominal: Reports: no symptoms Genitourinary: Reports: no symptoms Allergies: Coded Allergies: No Known Allergies (Unverified , 04/28/20) Objective Last 24 Hour Vital Signs Date Time Temp Pulse Resp B/P (MAP) Pulse Ox O2 Delivery O2 Flow Rate FiO2 04/30/20 09:29 104/63 04/30/20 08:00 98.0 72 18 104/63 (77) 100 04/30/20 08:00 Room Air 04/30/20 08:00 74 04/30/20 06:00 68 15 98/63 (75) 100 04/30/20 05:30 65 25 103/62 (76) 99 04/30/20 05:00 67 17 95/56 (69) 100 04/30/20 04:00 Room Air 04/30/20 04:00 98.4 68 17 101/58 (72) 100 04/30/20 04:00 71 04/30/20 03:30 69 19 100/61 (74) 100 04/30/20 03:00 66 11 92/61 (71) 100 04/30/20 02:00 68 13 92/63 (73) 100 04/30/20 01:00 66 13 97/59 (72) 99 04/30/20 00:30 64 13 92/55 (67) 99 04/30/20 00:06 69 12 93/53 (66) 100 04/30/20 00:00 98.0 75 16 88/54 (65) 100 04/30/20 00:00 Room Air 04/30/20 00:00 66 04/29/20 23:00 70 15 91/57 (68) 100 04/29/20 22:00 77 20 103/66 (78) 100 04/29/20 21:00 70 14 97/64 (75) 100 04/29/20 21:00 98/70 04/29/20 20:00 98.4 79 18 105/72 (83) 100 04/29/20 20:00 70 04/29/20 20:00 Nasal Cannula 1.0 04/29/20 19:00 83 24 113/70 (84) 99 04/29/20 18:00 93 25 106/58 (74) 100 04/29/20 17:00 84 16 100/63 (75) 100 04/29/20 16:00 Nasal Cannula 1.0 04/29/20 16:00 98.2 75 14 102/62 (75) 100 04/29/20 16:00 75 04/29/20 15:30 73 17 112/66 (81) 100 04/29/20 15:00 73 18 114/65 (81) 100 04/29/20 14:30 77 12 101/63 (76) 99 04/29/20 14:00 77 12 96/60 (72) 100 04/29/20 13:00 76 13 100/61 (74) 100 04/29/20 12:30 77 13 99/61 (74) 100 04/29/20 12:00 Nasal Cannula 1.0 04/29/20 12:00 98.4 75 18 110/64 (79) 100 04/29/20 12:00 98 04/29/20 11:30 84 19 113/62 (79) 100 04/29/20 11:00 82 18 109/68 (82) 100 Height (Feet): 5 Height (Inches): 7.00 Weight (Pounds): 137 General Appearance: no acute distress HEENT: mucous membranes moist Respiratory/Chest: lungs clear Cardiovascular: normal rate Abdomen: soft, non tender Extremities: no edema Neurologic/Psychiatric: alert, oriented x 3, responsive Microbiology Date/Time Source Procedure Growth Status 04/28/20 14:52 Nasopharynx SARS-CoV-2 Antigen (Rapid)(SELENE) - Final Complete Laboratory Tests Test 04/30/20 03:50 04/30/20 08:45 04/30/20 10:00 White Blood Count 12.6 K/UL (4.8-10.8) H Red Blood Count 4.60 M/UL (4.70-6.10) L Hemoglobin 14.5 G/DL (14.2-18.0) Hematocrit 44.1 % (42.0-52.0) Mean Corpuscular Volume 96 FL (80-99) Mean Corpuscular Hemoglobin 31.6 PG (27.0-31.0) H Mean Corpuscular Hemoglobin Concent 32.9 G/DL (32.0-36.0) Red Cell Distribution Width 11.8 % (11.6-14.8) Platelet Count 184 K/UL (150-450) Mean Platelet Volume 7.3 FL (6.5-10.1) Neutrophils (%) (Auto) % (45.0-75.0) Lymphocytes (%) (Auto) % (20.0-45.0) Monocytes (%) (Auto) % (1.0-10.0) Eosinophils (%) (Auto) % (0.0-3.0) Basophils (%) (Auto) % (0.0-2.0) Differential Total Cells Counted 100 Neutrophils % (Manual) 71 % (45-75) Lymphocytes % (Manual) 8 % (20-45) L Monocytes % (Manual) 7 % (1-10) Eosinophils % (Manual) 0 % (0-3) Basophils % (Manual) 2 % (0-2) Band Neutrophils 12 % (0-8) H Platelet Estimate Adequate Platelet Morphology Normal Red Blood Cell Morphology Normal Sodium Level 139 MMOL/L (136-145) Potassium Level 2.7 MMOL/L (3.5-5.1) *L Chloride Level 108 MMOL/L (98-107) H Carbon Dioxide Level 14 MMOL/L (21-32) L Anion Gap 17 mmol/L (5-15) H Blood Urea Nitrogen 8 mg/dL (7-18) Creatinine 0.7 MG/DL (0.55-1.30) Estimat Glomerular Filtration Rate > 60 mL/min (>60) Glucose Level 90 MG/DL (74-106) Calcium Level 9.0 MG/DL (8.5-10.1) Phosphorus Level 2.7 MG/DL (2.5-4.9) Magnesium Level 1.7 MG/DL (1.8-2.4) L Total Bilirubin 0.4 MG/DL (0.2-1.0) Aspartate Amino Transf (AST/SGOT) 46 U/L (15-37) H Alanine Aminotransferase (ALT/SGPT) 40 U/L (12-78) Alkaline Phosphatase 64 U/L (46-116) Total Creatine Kinase 62 U/L (26-308) Troponin I 0.006 ng/mL (0.000-0.056) Pro-B-Type Natriuretic Peptide 239 pg/mL (0-125) H Total Protein 5.6 G/DL (6.4-8.2) L Albumin 2.5 G/DL (3.4-5.0) L Globulin 3.1 g/dL Albumin/Globulin Ratio 0.8 (1.0-2.7) L Free Thyroxine 0.90 NG/DL (0.76-1.46) Hepatitis A IgM Antibody Pending Hepatitis B Surface Antigen Pending Hepatitis B Core IgM Antibody Pending Hepatitis C Antibody Pending D-Dimer 1.88 mg/L FEU (0.00-0.49) H Urine Color Pale yellow Urine Appearance Slightly cloudy Urine pH 5 (4.5-8.0) Urine Specific [place] 1.015 (1.005-1.035) Urine Protein Negative (NEGATIVE) Urine Glucose (UA) 4+ (NEGATIVE) H Urine Ketones 3+ (NEGATIVE) H Urine Blood Negative (NEGATIVE) Urine Nitrite Negative (NEGATIVE) Urine Bilirubin Negative (NEGATIVE) Urine Urobilinogen Normal MG/DL (0.0-1.0) Urine Leukocyte Esterase 2+ (NEGATIVE) H Urine RBC 0-2 /HPF (0 - 0) H Urine WBC 15-20 /HPF (0 - 0) H Urine Squamous Epithelial Cells Few /LPF (NONE/OCC) Urine Bacteria Moderate /HPF (NONE) H Urine Yeast Moderate /HPF (NONE) H Urine Opiates Screen Negative (NEGATIVE) Urine Barbiturates Screen Negative (NEGATIVE) Phencyclidine (PCP) Screen Negative (NEGATIVE) Urine Amphetamines Screen Negative (NEGATIVE) Urine Benzodiazepines Screen Negative (NEGATIVE) Urine Cocaine Screen Negative (NEGATIVE) Urine Marijuana (THC) Screen Negative (NEGATIVE) Current Medications Medications (Trade) Dose Ordered Sig/Jazzmine Route PRN Reason Start Time Stop Time Status Last Admin Dose Admin Atorvastatin Calcium (Lipitor) 20 mg BEDTIME ORAL 04/29/20 21:00 07/28/20 20:59 04/29/20 21:09 Ceftriaxone Sodium 1 gm/ Sodium Chloride 55 ml @ 110 mls/hr Q24H IVPB 04/30/20 11:00 05/06/20 10:59 Clonidine HCl (Catapres Tab) 0.1 mg Q2H PRN ORAL SBP above 170 04/28/20 23:15 07/27/20 23:14 Dextrose (Dextrose 50%) 25 ml Q30M PRN IV HYPOGLYCEMIA 04/29/20 17:45 07/28/20 17:44 Dextrose (Dextrose 50%) 50 ml Q30M PRN IV HYPOGLYCEMIA 04/29/20 17:45 07/28/20 17:44 Enoxaparin Sodium (Lovenox) 40 mg DAILY SUBQ 04/29/20 09:00 07/28/20 08:59 04/30/20 09:30 Insulin Human Regular (NovoLIN R) 5 units PRN PRN IV BS 200-299 04/29/20 17:45 07/28/20 17:44 04/29/20 21:00 Insulin Human Regular (NovoLIN R) 10 units PRN PRN IV BS=>300 04/29/20 17:45 07/28/20 17:44 Insulin Human Regular 100 units/ Sodium Chloride 101 ml @ 0 mls/hr Q24H IV 04/29/20 17:45 05/29/20 17:44 04/29/20 18:23 Lisinopril (ZestriL) 10 mg EVERY 12 HOURS ORAL 04/29/20 09:00 05/29/20 08:59 04/30/20 09:29 Magnesium Sulfate 100 ml @ 100 mls/hr Q1H IVPB 04/30/20 10:45 04/30/20 12:44 UNV Pantoprazole (Protonix) 40 mg EVERY 12 HOURS IVP 04/28/20 21:00 05/28/20 20:59 04/30/20 09:28 Potassium Chloride/Sodium Chloride 1,000 ml @ 100 mls/hr Q10H IV 04/28/20 23:45 05/28/20 23:44 04/30/20 04:01 Potassium Chloride 100 ml @ 100 mls/hr Q1HR IVPB 04/30/20 09:00 04/30/20 12:59 04/30/20 09:29 Sodium Citrate (Bicitra) 30 ml EVERY 6 HOURS ORAL 04/30/20 12:00 05/30/20 11:59 Sebas Swartz MD Apr 30, 2020 10:48
[2020-04-30] MEDS: cefTRIAXone 1 GM in NS 55 ML IVPB SCH (11:23)
[2020-04-30] MEDS: Sodium Citrate 30ml ORAL SCH ×3 (11:24→23:53)
--- NOTE | 2020-04-30 11:24 | Consultation ---
History of Present Illness General Chief Complaint: Dyspnea/Respdistress Present Illness Allergies: Coded Allergies: No Known Allergies (Unverified , 04/28/20) Patient History Healthcare decision maker Resuscitation status Advanced Directive on File Physical Exam Last 24 Hour Vital Signs Date Time Temp Pulse Resp B/P (MAP) Pulse Ox O2 Delivery O2 Flow Rate FiO2 04/30/20 11:00 75 19 103/63 (76) 100 04/30/20 10:00 68 20 107/74 (85) 100 04/30/20 09:29 104/63 04/30/20 09:00 70 21 106/68 (81) 100 04/30/20 08:00 98.0 72 18 104/63 (77) 100 04/30/20 08:00 Room Air 04/30/20 08:00 74 04/30/20 06:00 68 15 98/63 (75) 100 04/30/20 05:30 65 25 103/62 (76) 99 04/30/20 05:00 67 17 95/56 (69) 100 04/30/20 04:00 Room Air 04/30/20 04:00 98.4 68 17 101/58 (72) 100 04/30/20 04:00 71 04/30/20 03:30 69 19 100/61 (74) 100 04/30/20 03:00 66 11 92/61 (71) 100 04/30/20 02:00 68 13 92/63 (73) 100 04/30/20 01:00 66 13 97/59 (72) 99 04/30/20 00:30 64 13 92/55 (67) 99 04/30/20 00:06 69 12 93/53 (66) 100 04/30/20 00:00 98.0 75 16 88/54 (65) 100 04/30/20 00:00 Room Air 04/30/20 00:00 66 04/29/20 23:00 70 15 91/57 (68) 100 04/29/20 22:00 77 20 103/66 (78) 100 04/29/20 21:00 70 14 97/64 (75) 100 04/29/20 21:00 98/70 04/29/20 20:00 98.4 79 18 105/72 (83) 100 04/29/20 20:00 70 04/29/20 20:00 Nasal Cannula 1.0 04/29/20 19:00 83 24 113/70 (84) 99 04/29/20 18:00 93 25 106/58 (74) 100 04/29/20 17:00 84 16 100/63 (75) 100 04/29/20 16:00 Nasal Cannula 1.0 04/29/20 16:00 98.2 75 14 102/62 (75) 100 04/29/20 16:00 75 04/29/20 15:30 73 17 112/66 (81) 100 04/29/20 15:00 73 18 114/65 (81) 100 04/29/20 14:30 77 12 101/63 (76) 99 04/29/20 14:00 77 12 96/60 (72) 100 04/29/20 13:00 76 13 100/61 (74) 100 04/29/20 12:30 77 13 99/61 (74) 100 04/29/20 12:00 Nasal Cannula 1.0 04/29/20 12:00 98.4 75 18 110/64 (79) 100 04/29/20 12:00 98 04/29/20 11:30 84 19 113/62 (79) 100 Intake and Output 04/29/20 04/30/20 19:00 07:00 Intake Total 2730.599 ml 1721.625 ml Output Total 2000 ml 1400 ml Balance 730.599 ml 321.625 ml Intake Oral 1220 ml 500 ml IV Total 1510.599 ml 1221.625 ml Output Urine Total 2000 ml 1400 ml Laboratory Tests Test 04/30/20 03:50 04/30/20 08:45 04/30/20 10:00 White Blood Count 12.6 K/UL (4.8-10.8) H Red Blood Count 4.60 M/UL (4.70-6.10) L Hemoglobin 14.5 G/DL (14.2-18.0) Hematocrit 44.1 % (42.0-52.0) Mean Corpuscular Volume 96 FL (80-99) Mean Corpuscular Hemoglobin 31.6 PG (27.0-31.0) H Mean Corpuscular Hemoglobin Concent 32.9 G/DL (32.0-36.0) Red Cell Distribution Width 11.8 % (11.6-14.8) Platelet Count 184 K/UL (150-450) Mean Platelet Volume 7.3 FL (6.5-10.1) Neutrophils (%) (Auto) % (45.0-75.0) Lymphocytes (%) (Auto) % (20.0-45.0) Monocytes (%) (Auto) % (1.0-10.0) Eosinophils (%) (Auto) % (0.0-3.0) Basophils (%) (Auto) % (0.0-2.0) Differential Total Cells Counted 100 Neutrophils % (Manual) 71 % (45-75) Lymphocytes % (Manual) 8 % (20-45) L Monocytes % (Manual) 7 % (1-10) Eosinophils % (Manual) 0 % (0-3) Basophils % (Manual) 2 % (0-2) Band Neutrophils 12 % (0-8) H Platelet Estimate Adequate Platelet Morphology Normal Red Blood Cell Morphology Normal Sodium Level 139 MMOL/L (136-145) Potassium Level 2.7 MMOL/L (3.5-5.1) *L Chloride Level 108 MMOL/L (98-107) H Carbon Dioxide Level 14 MMOL/L (21-32) L Anion Gap 17 mmol/L (5-15) H Blood Urea Nitrogen 8 mg/dL (7-18) Creatinine 0.7 MG/DL (0.55-1.30) Estimat Glomerular Filtration Rate > 60 mL/min (>60) Glucose Level 90 MG/DL (74-106) Calcium Level 9.0 MG/DL (8.5-10.1) Phosphorus Level 2.7 MG/DL (2.5-4.9) Magnesium Level 1.7 MG/DL (1.8-2.4) L Total Bilirubin 0.4 MG/DL (0.2-1.0) Aspartate Amino Transf (AST/SGOT) 46 U/L (15-37) H Alanine Aminotransferase (ALT/SGPT) 40 U/L (12-78) Alkaline Phosphatase 64 U/L (46-116) Total Creatine Kinase 62 U/L (26-308) Troponin I 0.006 ng/mL (0.000-0.056) Pro-B-Type Natriuretic Peptide 239 pg/mL (0-125) H Total Protein 5.6 G/DL (6.4-8.2) L Albumin 2.5 G/DL (3.4-5.0) L Globulin 3.1 g/dL Albumin/Globulin Ratio 0.8 (1.0-2.7) L Free Thyroxine 0.90 NG/DL (0.76-1.46) Hepatitis A IgM Antibody Pending Hepatitis B Surface Antigen Pending Hepatitis B Core IgM Antibody Pending Hepatitis C Antibody Pending D-Dimer 1.88 mg/L FEU (0.00-0.49) H Urine Color Pale yellow Urine Appearance Slightly cloudy Urine pH 5 (4.5-8.0) Urine Specific [place] 1.015 (1.005-1.035) Urine Protein Negative (NEGATIVE) Urine Glucose (UA) 4+ (NEGATIVE) H Urine Ketones 3+ (NEGATIVE) H Urine Blood Negative (NEGATIVE) Urine Nitrite Negative (NEGATIVE) Urine Bilirubin Negative (NEGATIVE) Urine Urobilinogen Normal MG/DL (0.0-1.0) Urine Leukocyte Esterase 2+ (NEGATIVE) H Urine RBC 0-2 /HPF (0 - 0) H Urine WBC 15-20 /HPF (0 - 0) H Urine Squamous Epithelial Cells Few /LPF (NONE/OCC) Urine Bacteria Moderate /HPF (NONE) H Urine Yeast Moderate /HPF (NONE) H Urine Opiates Screen Negative (NEGATIVE) Urine Barbiturates Screen Negative (NEGATIVE) Phencyclidine (PCP) Screen Negative (NEGATIVE) Urine Amphetamines Screen Negative (NEGATIVE) Urine Benzodiazepines Screen Negative (NEGATIVE) Urine Cocaine Screen Negative (NEGATIVE) Urine Marijuana (THC) Screen Negative (NEGATIVE) Height (Feet): 5 Height (Inches): 7.00 Weight (Pounds): 137 Medications Current Medications Medications (Trade) Dose Ordered Sig/Jazzmine Route PRN Reason Start Time Stop Time Status Last Admin Dose Admin Atorvastatin Calcium (Lipitor) 20 mg BEDTIME ORAL 04/29/20 21:00 07/28/20 20:59 04/29/20 21:09 Ceftriaxone Sodium 1 gm/ Sodium Chloride 55 ml @ 110 mls/hr Q24H IVPB 04/30/20 11:00 05/06/20 10:59 Clonidine HCl (Catapres Tab) 0.1 mg Q2H PRN ORAL SBP above 170 04/28/20 23:15 07/27/20 23:14 Dextrose (Dextrose 50%) 25 ml Q30M PRN IV HYPOGLYCEMIA 04/29/20 17:45 07/28/20 17:44 Dextrose (Dextrose 50%) 50 ml Q30M PRN IV HYPOGLYCEMIA 04/29/20 17:45 07/28/20 17:44 Enoxaparin Sodium (Lovenox) 40 mg DAILY SUBQ 04/29/20 09:00 07/28/20 08:59 04/30/20 09:30 Insulin Human Regular (NovoLIN R) 5 units PRN PRN IV BS 200-299 04/29/20 17:45 07/28/20 17:44 04/29/20 21:00 Insulin Human Regular (NovoLIN R) 10 units PRN PRN IV BS=>300 04/29/20 17:45 07/28/20 17:44 Insulin Human Regular 100 units/ Sodium Chloride 101 ml @ 0 mls/hr Q24H IV 04/29/20 17:45 05/29/20 17:44 04/29/20 18:23 Lisinopril (ZestriL) 10 mg EVERY 12 HOURS ORAL 04/29/20 09:00 05/29/20 08:59 04/30/20 09:29 Magnesium Sulfate 100 ml @ 100 mls/hr Q1H IVPB 04/30/20 11:30 04/30/20 13:29 Pantoprazole (Protonix) 40 mg EVERY 12 HOURS IVP 04/28/20 21:00 05/28/20 20:59 04/30/20 09:28 Potassium Chloride/Sodium Chloride 1,000 ml @ 100 mls/hr Q10H IV 04/28/20 23:45 05/28/20 23:44 04/30/20 04:01 Potassium Chloride 100 ml @ 100 mls/hr Q1HR IVPB 04/30/20 09:00 04/30/20 12:59 04/30/20 09:29 Sodium Citrate (Bicitra) 30 ml EVERY 6 HOURS ORAL 04/30/20 12:00 05/30/20 11:59 Assessment/Plan Assessment/Plan: Hematology Consultation REQ MD: Jesús Landry RFC: Elevated ddimer DOS: 04/30/2020 HPI: 49-year-old male history of diabetes presents for shortness of breath. Symptoms present 2 days. He states he feels tightness chest and some chest pain with deep inspiration. Mild cough. Worsening over the past day. Denies fever or chills. Denies nausea or vomiting. Denies history of asthma, COPD, bronchitis, emphysema. Unknown Covid exposure. 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 EOMI. Cardiovascular: Tachycardic Resp: 10 L nonrebreather. Increased work of breathing with substernal retractions ++ Abdomen: Abdomen is soft, nondistended. Nontender Skin: Intact. No abrasions, laceration or rash over the exposed skin MSK: Normal tone and bulk. Moving all extremities. No obvious deformity. Neuro: Awake and alert. Mentating appropriately. Labs: reviewed Meds: noted Assessment and Recs # Elevated ddimer --> r/o hypercoag disorder --> imaging has been noted, duplex neg --> ddimer 1.28-->1.88 -> anticoagulation started --> does not need full dose unless VTE is noted # Elevated WBC count --> due to dka likely --> meds noted, off abx # Anemia of chronic disease --> hemoconcentrated initially --> hgb 12 # DKA (diabetic ketoacidoses) --> per endo --> Iss, acchechecks # JEREMY (acute kidney injury) --> ivfs and lyete management with renal Appreciate consultation and Renard Spaulding Rn, MD Apr 30, 2020 11:24
--- NOTE | 2020-04-30 12:00 | NUR ---
NURSE NOTES: Pt stable,ate 100% every meal.
--- NOTE | 2020-04-30 13:22 | Diagnostic Imaging Report ---
Indication: Abdominal pain Technique: An-scale and duplex images of the upper abdomen were obtained Comparison: none Findings: Gallbladder is unremarkable, without stones, wall thickening, nor pericholecystic fluid. Sonographic Rogel's sign is negative. Common bile duct measures 2 mm in diameter. No intrahepatic biliary ductal dilatation. Liver demonstrates normal echogenicity, no focal abnormality. Portal vein and hepatic veins are patent. Pancreas is obscured by bowel gas. Spleen is unremarkable. Left kidney measures 12.5 cm in length. Right kidney measures 13.1 cm length. Both kidneys demonstrate normal echogenicity. There is no hydronephrosis. No focal abnormality . Abdominal aorta is partially obscured by bowel gas, visualized portions are non-aneurysmal . Impression: Essentially unremarkable exam. Negative for gallstones or bile ducts Note nonvisualization of the pancreas and portions of the abdominal aorta
--- NOTE | 2020-04-30 13:43 | Cardiac Electrophysiology PN ---
Assessment/Plan Assessment/Plan 1. Tachycardia due to diabetic ketoacidosis. The heart rate is better since the patient was started on insulin drip. EF 65% 2. 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 3. Severe hypokalemia. Potassium was being replaced. 4. Hyperlipidemia. The LDL goal is less than 70. In view of this patient's diabetes, start the patient on Lipitor. Subjective Subjective In RA off pressors on insulin drip Objective Last 24 Hour Vital Signs Date Time Temp Pulse Resp B/P (MAP) Pulse Ox O2 Delivery O2 Flow Rate FiO2 04/30/20 13:00 74 17 108/62 (77) 98 04/30/20 12:04 Room Air 04/30/20 12:00 97.5 83 16 104/63 (77) 97 04/30/20 12:00 73 04/30/20 11:00 75 19 103/63 (76) 100 04/30/20 10:00 68 20 107/74 (85) 100 04/30/20 09:29 104/63 04/30/20 09:00 70 21 106/68 (81) 100 04/30/20 08:00 98.0 72 18 104/63 (77) 100 04/30/20 08:00 Room Air 04/30/20 08:00 74 04/30/20 06:00 68 15 98/63 (75) 100 04/30/20 05:30 65 25 103/62 (76) 99 04/30/20 05:00 67 17 95/56 (69) 100 04/30/20 04:00 Room Air 04/30/20 04:00 98.4 68 17 101/58 (72) 100 04/30/20 04:00 71 04/30/20 03:30 69 19 100/61 (74) 100 04/30/20 03:00 66 11 92/61 (71) 100 04/30/20 02:00 68 13 92/63 (73) 100 04/30/20 01:00 66 13 97/59 (72) 99 04/30/20 00:30 64 13 92/55 (67) 99 04/30/20 00:06 69 12 93/53 (66) 100 04/30/20 00:00 98.0 75 16 88/54 (65) 100 04/30/20 00:00 Room Air 04/30/20 00:00 66 04/29/20 23:00 70 15 91/57 (68) 100 04/29/20 22:00 77 20 103/66 (78) 100 04/29/20 21:00 70 14 97/64 (75) 100 04/29/20 21:00 98/70 04/29/20 20:00 98.4 79 18 105/72 (83) 100 04/29/20 20:00 70 04/29/20 20:00 Nasal Cannula 1.0 04/29/20 19:00 83 24 113/70 (84) 99 04/29/20 18:00 93 25 106/58 (74) 100 04/29/20 17:00 84 16 100/63 (75) 100 04/29/20 16:00 Nasal Cannula 1.0 04/29/20 16:00 98.2 75 14 102/62 (75) 100 04/29/20 16:00 75 04/29/20 15:30 73 17 112/66 (81) 100 04/29/20 15:00 73 18 114/65 (81) 100 04/29/20 14:30 77 12 101/63 (76) 99 04/29/20 14:00 77 12 96/60 (72) 100 Intake and Output 04/29/20 04/30/20 19:00 07:00 Intake Total 2730.599 ml 1721.625 ml Output Total 2000 ml 1400 ml Balance 730.599 ml 321.625 ml Intake Oral 1220 ml 500 ml IV Total 1510.599 ml 1221.625 ml Output Urine Total 2000 ml 1400 ml Laboratory Tests Test 04/30/20 03:50 04/30/20 08:45 04/30/20 10:00 White Blood Count 12.6 K/UL (4.8-10.8) H Red Blood Count 4.60 M/UL (4.70-6.10) L Hemoglobin 14.5 G/DL (14.2-18.0) Hematocrit 44.1 % (42.0-52.0) Mean Corpuscular Volume 96 FL (80-99) Mean Corpuscular Hemoglobin 31.6 PG (27.0-31.0) H Mean Corpuscular Hemoglobin Concent 32.9 G/DL (32.0-36.0) Red Cell Distribution Width 11.8 % (11.6-14.8) Platelet Count 184 K/UL (150-450) Mean Platelet Volume 7.3 FL (6.5-10.1) Neutrophils (%) (Auto) % (45.0-75.0) Lymphocytes (%) (Auto) % (20.0-45.0) Monocytes (%) (Auto) % (1.0-10.0) Eosinophils (%) (Auto) % (0.0-3.0) Basophils (%) (Auto) % (0.0-2.0) Differential Total Cells Counted 100 Neutrophils % (Manual) 71 % (45-75) Lymphocytes % (Manual) 8 % (20-45) L Monocytes % (Manual) 7 % (1-10) Eosinophils % (Manual) 0 % (0-3) Basophils % (Manual) 2 % (0-2) Band Neutrophils 12 % (0-8) H Platelet Estimate Adequate Platelet Morphology Normal Red Blood Cell Morphology Normal Sodium Level 139 MMOL/L (136-145) Potassium Level 2.7 MMOL/L (3.5-5.1) *L Chloride Level 108 MMOL/L (98-107) H Carbon Dioxide Level 14 MMOL/L (21-32) L Anion Gap 17 mmol/L (5-15) H Blood Urea Nitrogen 8 mg/dL (7-18) Creatinine 0.7 MG/DL (0.55-1.30) Estimat Glomerular Filtration Rate > 60 mL/min (>60) Glucose Level 90 MG/DL (74-106) Calcium Level 9.0 MG/DL (8.5-10.1) Phosphorus Level 2.7 MG/DL (2.5-4.9) Magnesium Level 1.7 MG/DL (1.8-2.4) L Total Bilirubin 0.4 MG/DL (0.2-1.0) Aspartate Amino Transf (AST/SGOT) 46 U/L (15-37) H Alanine Aminotransferase (ALT/SGPT) 40 U/L (12-78) Alkaline Phosphatase 64 U/L (46-116) Total Creatine Kinase 62 U/L (26-308) Troponin I 0.006 ng/mL (0.000-0.056) Pro-B-Type Natriuretic Peptide 239 pg/mL (0-125) H Total Protein 5.6 G/DL (6.4-8.2) L Albumin 2.5 G/DL (3.4-5.0) L Globulin 3.1 g/dL Albumin/Globulin Ratio 0.8 (1.0-2.7) L Free Thyroxine 0.90 NG/DL (0.76-1.46) Hepatitis A IgM Antibody Pending Hepatitis B Surface Antigen Pending Hepatitis B Core IgM Antibody Pending Hepatitis C Antibody Pending D-Dimer 1.88 mg/L FEU (0.00-0.49) H Urine Color Pale yellow Urine Appearance Slightly cloudy Urine pH 5 (4.5-8.0) Urine Specific [place] 1.015 (1.005-1.035) Urine Protein Negative (NEGATIVE) Urine Glucose (UA) 4+ (NEGATIVE) H Urine Ketones 3+ (NEGATIVE) H Urine Blood Negative (NEGATIVE) Urine Nitrite Negative (NEGATIVE) Urine Bilirubin Negative (NEGATIVE) Urine Urobilinogen Normal MG/DL (0.0-1.0) Urine Leukocyte Esterase 2+ (NEGATIVE) H Urine RBC 0-2 /HPF (0 - 0) H Urine WBC 15-20 /HPF (0 - 0) H Urine Squamous Epithelial Cells Few /LPF (NONE/OCC) Urine Bacteria Moderate /HPF (NONE) H Urine Yeast Moderate /HPF (NONE) H Urine Opiates Screen Negative (NEGATIVE) Urine Barbiturates Screen Negative (NEGATIVE) Phencyclidine (PCP) Screen Negative (NEGATIVE) Urine Amphetamines Screen Negative (NEGATIVE) Urine Benzodiazepines Screen Negative (NEGATIVE) Urine Cocaine Screen Negative (NEGATIVE) Urine Marijuana (THC) Screen Negative (NEGATIVE) Microbiology Date/Time Source Procedure Growth Status 04/28/20 14:52 Nasopharynx SARS-CoV-2 Antigen (Rapid)([facility]) - Final Complete Objective HEAD AND NECK: No JVD. LUNGS: Clear. CARDIOVASCULAR: Regular S1 and S2 with no gallop. ABDOMEN: Soft. EXTREMITIES: No pitting edema. Jordan Ordonez MD Apr 30, 2020 13:43
--- NOTE | 2020-04-30 16:00 | NUR ---
NURSE NOTES: pt continue to be stable ,no distress or c/o presented.
--- NOTE | 2020-04-30 17:00 | NUR ---
NURSE NOTES: Pt ambulated to bathroom and had a bowel movement to large brown formed stools.
--- NOTE | 2020-04-30 19:30 | NUR ---
NURSE NOTES: Received report from Siobhan MORIN.
--- NOTE | 2020-04-30 19:35 | NUR ---
NURSE HAND-OFF REPORT: Latest Vital Signs: Temperature 98.0 , Pulse 77 , B/P 102 /44 , Respiratory Rate 18 , O2 SAT 100 , Nasal Cannula, O2 Flow Rate 1.0 . Vital Sign Comment: stable EKG Rhythm: Sinus Rhythm Rhythm change?: N MD Notified?: - MD Response: Latest Lewis Fall Score: 35 Fall Risk: Medium Risk Safety Measures: Call light Within Reach, Bed Alarm Zone 1, Side Rails Side Rails x2, Bed position Low and Locked. Fall Precautions: Yellow Socks Patient Fall Education Report given to Aleshia Braxton RN..
--- NOTE | 2020-04-30 19:37 | General Progress Note ---
Subjective ROS Limited/Unobtainable: Yes Allergies: Coded Allergies: No Known Allergies (Unverified , 04/28/20) Objective Last 24 Hour Vital Signs Date Time Temp Pulse Resp B/P (MAP) Pulse Ox O2 Delivery O2 Flow Rate FiO2 04/30/20 19:00 77 18 102/44 (63) 100 04/30/20 18:00 76 19 113/63 (80) 100 04/30/20 17:10 82 20 107/66 (80) 18 04/30/20 16:00 98.0 78 17 104/59 (74) 99 04/30/20 16:00 70 04/30/20 16:00 Room Air 04/30/20 15:00 78 20 98/62 (74) 100 04/30/20 14:00 78 20 97/68 (78) 99 04/30/20 13:00 74 17 108/62 (77) 98 04/30/20 12:04 Room Air 04/30/20 12:00 97.5 83 16 104/63 (77) 97 04/30/20 12:00 73 04/30/20 11:00 75 19 103/63 (76) 100 04/30/20 10:00 68 20 107/74 (85) 100 04/30/20 09:29 104/63 04/30/20 09:00 70 21 106/68 (81) 100 04/30/20 08:00 98.0 72 18 104/63 (77) 100 04/30/20 08:00 Room Air 04/30/20 08:00 74 04/30/20 06:00 68 15 98/63 (75) 100 04/30/20 05:30 65 25 103/62 (76) 99 04/30/20 05:00 67 17 95/56 (69) 100 04/30/20 04:00 Room Air 04/30/20 04:00 98.4 68 17 101/58 (72) 100 04/30/20 04:00 71 04/30/20 03:30 69 19 100/61 (74) 100 04/30/20 03:00 66 11 92/61 (71) 100 04/30/20 02:00 68 13 92/63 (73) 100 04/30/20 01:00 66 13 97/59 (72) 99 04/30/20 00:30 64 13 92/55 (67) 99 04/30/20 00:06 69 12 93/53 (66) 100 04/30/20 00:00 98.0 75 16 88/54 (65) 100 04/30/20 00:00 Room Air 04/30/20 00:00 66 04/29/20 23:00 70 15 91/57 (68) 100 04/29/20 22:00 77 20 103/66 (78) 100 04/29/20 21:00 70 14 97/64 (75) 100 04/29/20 21:00 98/70 04/29/20 20:00 98.4 79 18 105/72 (83) 100 04/29/20 20:00 70 04/29/20 20:00 Nasal Cannula 1.0 Intake and Output 04/29/20 04/30/20 19:00 07:00 Intake Total 2730.599 ml 1721.625 ml Output Total 2000 ml 1400 ml Balance 730.599 ml 321.625 ml Intake Oral 1220 ml 500 ml IV Total 1510.599 ml 1221.625 ml Output Urine Total 2000 ml 1400 ml Laboratory Tests 04/30/20 03:50: White Blood Count 12.6H, Red Blood Count 4.60L, Hemoglobin 14.5, Hematocrit 44.1, Mean Corpuscular Volume 96, Mean Corpuscular Hemoglobin 31.6H, Mean Corpuscular Hemoglobin Concent 32.9, Red Cell Distribution Width 11.8, Platelet Count 184, Mean Platelet Volume 7.3, Neutrophils (%) (Auto) , Lymphocytes (%) (Auto) , Monocytes (%) (Auto) , Eosinophils (%) (Auto) , Basophils (%) (Auto) , Differential Total Cells Counted 100, Neutrophils % (Manual) 71, Lymphocytes % (Manual) 8L, Monocytes % (Manual) 7, Eosinophils % (Manual) 0, Basophils % (Manual) 2, Band Neutrophils 12H, Platelet Estimate Adequate, Platelet Morphology Normal, Red Blood Cell Morphology Normal, Sodium Level 139, Potassium Level 2.7*L, Chloride Level 108H, Carbon Dioxide Level 14L, Anion Gap 17H, Blood Urea Nitrogen 8, Creatinine 0.7, Estimat Glomerular Filtration Rate > 60, Glucose Level 90, Calcium Level 9.0, Phosphorus Level 2.7, Magnesium Level 1.7L, Total Bilirubin 0.4, Aspartate Amino Transf (AST/SGOT) 46H, Alanine Aminotransferase (ALT/SGPT) 40, Alkaline Phosphatase 64, Total Creatine Kinase 62, Troponin I 0.006, Pro-B-Type Natriuretic Peptide 239H, Total Protein 5.6L, Albumin 2.5L, Globulin 3.1, Albumin/Globulin Ratio 0.8L, Free Thyroxine 0.90, Hepatitis A IgM Antibody [Pending], Hepatitis B Surface Antigen [Pending], Hepatitis B Core IgM Antibody [Pending], Hepatitis C Antibody [Pending] 04/30/20 08:45: D-Dimer 1.88H 04/30/20 10:00: Urine Color Pale yellow, Urine Appearance Slightly cloudy, Urine pH 5, Urine Specific [place] 1.015, Urine Protein Negative, Urine Glucose (UA) 4+H, Urine Ketones 3+H, Urine Blood Negative, Urine Nitrite Negative, Urine Bilirubin Negative, Urine Urobilinogen Normal, Urine Leukocyte Esterase 2+H, Urine RBC 0- 2H, Urine WBC 15-20H, Urine Squamous Epithelial Cells Few, Urine Bacteria ModerateH, Urine Yeast ModerateH, Urine Opiates Screen Negative, Urine Barbiturates Screen Negative, Phencyclidine (PCP) Screen Negative, Urine Amp hetamines Screen Negative, Urine Benzodiazepines Screen Negative, Urine Cocaine Screen Negative, Urine Marijuana (THC) Screen Negative Height (Feet): 5 Height (Inches): 7.00 Weight (Pounds): 137 Assessment/Plan Problem List: (1) DKA (diabetic ketoacidoses) ICD Codes: E11.10 - Type 2 diabetes mellitus with ketoacidosis without coma SNOMED: 068375004, 21647112 (2) Hyperglycemia ICD Codes: R73.9 - Hyperglycemia, unspecified SNOMED: 19669278 (3) JEREMY (acute kidney injury) ICD Codes: N17.9 - Acute kidney failure, unspecified SNOMED: 19832923, 7367340 (4) Elevated d-dimer ICD Codes: R79.89 - Other specified abnormal findings of blood chemistry SNOMED: 484417129 (5) Respiratory failure ICD Codes: J96.90 - Respiratory failure, unspecified, unspecified whether with hypoxia or hypercapnia SNOMED: 210949575 (6) Hypoxia ICD Codes: R09.02 - Hypoxemia SNOMED: 484964406 Status: progressing Assessment/Plan: hypokalemia is improving dka resolved elevated sugar afebrile no vomit check lytes and sugar Jesús Noble MD Apr 30, 2020 19:36
[2020-04-30] MEDS ORDERED: Insulin Human Regular 100units/ml 3ml IV PRN ×2 (20:00)
[2020-04-30] MEDS ORDERED: Insulin Rate Change 1 Each MISC SCH (20:00)
--- NOTE | 2020-04-30 20:00 | NUR ---
NURSE NOTES: Patient in bed awake,alert oriented x4. Watching TV. No SOB satting 100% room air. No s/s of hypo/hyperglycemia. no s/s of acute distress noted. on Regular Insulin drip at 0.5 units/hr Blood glucose 98mg/dl. Urinal at bedside. call light within easy reach. Denies N/V. Full code. will continue plan of care.
[2020-04-30 20:49] LABS: ANION GAP 9 mmol/L (5-15); BLOOD UREA NITROGEN 8 mg/dL (7-18); CALCIUM 8.9 MG/DL (8.5-10.1); CARBON DIOXIDE 22 MMOL/L (21-32); CHLORIDE 109 MMOL/L (98-107); CREATININE 0.8 MG/DL (0.55-1.30); POTASSIUM 3.1 MMOL/L (3.5-5.1); SODIUM 140 MMOL/L (136-145)
[2020-04-30] MEDS: Atorvastatin 20mg tab ORAL SCH (21:24)
--- NOTE | 2020-04-30 21:33 | General Progress Note ---
Subjective Allergies: Coded Allergies: No Known Allergies (Unverified , 04/28/20) Subjective Feels OK' no abd complaints tolerating PO abd ultrasound negative Objective Last 24 Hour Vital Signs Date Time Temp Pulse Resp B/P (MAP) Pulse Ox O2 Delivery O2 Flow Rate FiO2 04/30/20 20:00 71 04/30/20 20:00 Room Air 04/30/20 20:00 98.1 75 20 105/64 (78) 99 04/30/20 19:00 77 18 102/44 (63) 100 04/30/20 18:00 76 19 113/63 (80) 100 04/30/20 17:10 82 20 107/66 (80) 18 04/30/20 16:00 98.0 78 17 104/59 (74) 99 04/30/20 16:00 70 04/30/20 16:00 Room Air 04/30/20 15:00 78 20 98/62 (74) 100 04/30/20 14:00 78 20 97/68 (78) 99 04/30/20 13:00 74 17 108/62 (77) 98 04/30/20 12:04 Room Air 04/30/20 12:00 97.5 83 16 104/63 (77) 97 04/30/20 12:00 73 04/30/20 11:00 75 19 103/63 (76) 100 04/30/20 10:00 68 20 107/74 (85) 100 04/30/20 09:29 104/63 04/30/20 09:00 70 21 106/68 (81) 100 04/30/20 08:00 98.0 72 18 104/63 (77) 100 04/30/20 08:00 Room Air 04/30/20 08:00 74 04/30/20 06:00 68 15 98/63 (75) 100 04/30/20 05:30 65 25 103/62 (76) 99 04/30/20 05:00 67 17 95/56 (69) 100 04/30/20 04:00 Room Air 04/30/20 04:00 98.4 68 17 101/58 (72) 100 04/30/20 04:00 71 04/30/20 03:30 69 19 100/61 (74) 100 04/30/20 03:00 66 11 92/61 (71) 100 04/30/20 02:00 68 13 92/63 (73) 100 04/30/20 01:00 66 13 97/59 (72) 99 04/30/20 00:30 64 13 92/55 (67) 99 04/30/20 00:06 69 12 93/53 (66) 100 04/30/20 00:00 98.0 75 16 88/54 (65) 100 04/30/20 00:00 Room Air 04/30/20 00:00 66 04/29/20 23:00 70 15 91/57 (68) 100 04/29/20 22:00 77 20 103/66 (78) 100 Intake and Output 04/29/20 04/30/20 19:00 07:00 Intake Total 2730.599 ml 1721.625 ml Output Total 2000 ml 1400 ml Balance 730.599 ml 321.625 ml Intake Oral 1220 ml 500 ml IV Total 1510.599 ml 1221.625 ml Output Urine Total 2000 ml 1400 ml Laboratory Tests 04/30/20 03:50: White Blood Count 12.6H, Red Blood Count 4.60L, Hemoglobin 14.5, Hematocrit 44.1, Mean Corpuscular Volume 96, Mean Corpuscular Hemoglobin 31.6H, Mean Corpuscular Hemoglobin Concent 32.9, Red Cell Distribution Width 11.8, Platelet Count 184, Mean Platelet Volume 7.3, Neutrophils (%) (Auto) , Lymphocytes (%) (Auto) , Monocytes (%) (Auto) , Eosinophils (%) (Auto) , Basophils (%) (Auto) , Differential Total Cells Counted 100, Neutrophils % (Manual) 71, Lymphocytes % (Manual) 8L, Monocytes % (Manual) 7, Eosinophils % (Manual) 0, Basophils % (Manual) 2, Band Neutrophils 12H, Platelet Estimate Adequate, Platelet Morphology Normal, Red Blood Cell Morphology Normal, Sodium Level 139, Potassium Level 2.7*L, Chloride Level 108H, Carbon Dioxide Level 14L, Anion Gap 17H, Blood Urea Nitrogen 8, Creatinine 0.7, Estimat Glomerular Filtration Rate > 60, Glucose Level 90, Calcium Level 9.0, Phosphorus Level 2.7, Magnesium Level 1.7L, Total Bilirubin 0.4, Aspartate Amino Transf (AST/SGOT) 46H, Alanine Aminotransferase (ALT/SGPT) 40, Alkaline Phosphatase 64, Total Creatine Kinase 62, Troponin I 0.006, Pro-B-Type Natriuretic Peptide 239H, Total Protein 5.6L, Albumin 2.5L, Globulin 3.1, Albumin/Globulin Ratio 0.8L, Free Thyroxine 0.90, Hepatitis A IgM Antibody [Pending], Hepatitis B Surface Antigen [Pending], Hepatitis B Core IgM Antibody [Pending], Hepatitis C Antibody [Pending] 04/30/20 08:45: D-Dimer 1.88H 04/30/20 10:00: Urine Color Pale yellow, Urine Appearance Slightly cloudy, Urine pH 5, Urine Specific [place] 1.015, Urine Protein Negative, Urine Glucose (UA) 4+H, Urine Ketones 3+H, Urine Blood Negative, Urine Nitrite Negative, Urine Bilirubin Negative, Urine Urobilinogen Normal, Urine Leukocyte Esterase 2+H, Urine RBC 0- 2H, Urine WBC 15-20H, Urine Squamous Epithelial Cells Few, Urine Bacteria ModerateH, Urine Yeast ModerateH, Urine Opiates Screen Negative, Urine Barbiturates Screen Negative, Phencyclidine (PCP) Screen Negative, Urine Amphetamines Screen Negative, Urine Benzodiazepines Screen Negative, Urine Cocaine Screen Negative, Urine Marijuana (THC) Screen Negative 04/30/20 20:25: Sodium Level 140, Potassium Level 3.1L, Chloride Level 109H, Carbon Dioxide Level 22, Anion Gap 9, Blood Urea Nitrogen 8, Creatinine 0.8, Estimat Glomerular Filtration Rate > 60, Glucose Level 75, Calcium Level 8.9, Hemoglobin A1c 12.6H Height (Feet): 5 Height (Inches): 7.00 Weight (Pounds): 137 Objective WDWN NCAT supple CTA RRR abd sot ND NT no edema Assessment/Plan Status: progressing Assessment/Plan: Assessment - DKA - abnormal LFT - likely fatty liver - hypokalemia - hypomagensemia Recommendations - po as tolerated - follow labs and exam - replace Saima Guardado MD Apr 30, 2020 21:33
--- NOTE | 2020-04-30 22:00 | NUR ---
NURSE NOTES: No s/s of hypo/hyperglycemia. no s/s of acute distress noted. on Regular Insulin drip at 0.5 units/hr Blood glucose 108 mg/dl. Urinal at bedside. call light within easy reach. Denies N/V. Full code. will continue plan of care.
[2020-05-01] VITALS (32 sets, daily range): BP systolic 87–123; BP diastolic 54–86
--- NOTE | 2020-05-01 | NUR ---
NURSE NOTES: Patient in bed sleeping comfortably. denies any pain or discomfort. No SOB satting 100% room air. No s/s of hypo/hyperglycemia. no s/s of acute distress noted. on Regular Insulin drip at 1 units/hr Blood glucose 119 mg/dl. Urinal at bedside. call light within easy reach. Denies N/V. Full code. will continue plan of care.
--- NOTE | 2020-05-01 04:00 | NUR ---
NURSE NOTES: patient in bed sleeping comfortably in bed. no s/s of acute distress noted. no fever. no s/s of hypo/hyperglycemia. call light within easy reach. will continue plan of care.
[2020-05-01] MEDS: NS w/KCl 20mEq 1000ml 1,000 ML IV SCH ×3 (04:07→20:52)
[2020-05-01 05:50] LABS: BASOPHILS % (AUTO) 1.3 % (0.0-2.0); EOSINOPHILS % (AUTO) 1.6 % (0.0-3.0); HEMATOCRIT 37.5 % (42.0-52.0); HEMOGLOBIN 12.6 G/DL (14.2-18.0); LYMPHOCYTES % (AUTO) 28.8 % (20.0-45.0); MEAN CORPUSCULAR VOLUME 95 FL (80-99); MONOCYTES % (AUTO) 9.4 % (1.0-10.0); NEUTROPHILS % (AUTO) 58.9 % (45.0-75.0); PLATELET COUNT 161 K/UL (150-450); RED BLOOD COUNT 3.94 M/UL (4.70-6.10); RED CELL DISTRIBUTION WIDTH 11.8 % (11.6-14.8); WHITE BLOOD COUNT 5.6 K/UL (4.8-10.8)
--- NOTE | 2020-05-01 06:00 | NUR ---
NURSE NOTES: Patient in bed awake,alert watching TV. denies any pain or discomfort. No SOB satting 100% room air. No s/s of hypo/hyperglycemia. no s/s of acute distress noted. on Regular Insulin drip at 1 units/hr Blood glucose 117 mg/dl. Urinal at bedside. call light within easy reach. Denies N/V. Full code. will continue plan of care.
[2020-05-01 06:19] LABS: ALANINE AMINOTRANSFERASE 42 U/L (12-78); ALBUMIN 2.2 G/DL (3.4-5.0); ALBUMIN/GLOBULIN RATIO 0.8 (1.0-2.7); ALKALINE PHOSPHATASE 61 U/L (46-116); ANION GAP 13 mmol/L (5-15); ASPARTATE AMINO TRANSFERASE 60 U/L (15-37); BILIRUBIN,TOTAL 0.3 MG/DL (0.2-1.0); BLOOD UREA NITROGEN 8 mg/dL (7-18); CALCIUM 8.3 MG/DL (8.5-10.1); CARBON DIOXIDE 20 MMOL/L (21-32); CHLORIDE 109 MMOL/L (98-107); CREATININE 0.6 MG/DL (0.55-1.30); LACTATE DEHYDROGENASE 140 U/L (81-234); PHOSPHORUS 2.7 MG/DL (2.5-4.9); POTASSIUM 2.8 MMOL/L (3.5-5.1); SODIUM 141 MMOL/L (136-145)
[2020-05-01] MEDS: Sodium Citrate 30ml ORAL SCH ×4 (06:29→23:42)
--- NOTE | 2020-05-01 06:47 | Hematology/Onc Progress Note ---
Assessment/Plan Assessment/Plan Assessment and Recs # Elevated ddimer --> r/o hypercoag disorder --> imaging has been noted, duplex neg --> ddimer 1.28-->1.88 -> anticoagulation started --> does not need full dose unless VTE is noted # Elevated WBC count --> due to dka likely --> meds noted, on ceftriaxone # Anemia of chronic disease --> hemoconcentrated initially --> hgb 12 # DKA (diabetic ketoacidoses) --> per endo --> Iss, acchechecks # JEREMY (acute kidney injury) --> ivfs and lyete management with renal # Dvt ppx lovenox sq Appreciate consultation and dw Rn Subjective Constitutional: Denies: no symptoms, chills, fever, malaise, weakness, other HEENT: Denies: no symptoms, eye pain, blurred vision, tearing, double vision, ear pain, ear discharge, nose pain, nose congestion, throat pain, throat swelling, mouth pain, mouth swelling, other Cardiovascular: Denies: no symptoms, chest pain, edema, irregular heart rate, lightheadedness, palpitations, syncope, other Respiratory: Denies: no symptoms, cough, shortness of breath, SOB with excertion, SOB at rest, sputum, wheezing, other Gastrointestinal/Abdominal: Denies: no symptoms, abdomen distended, abdominal pain, black stools, tarry stools, blood in stool, constipated, diarrhea, difficu lty swallowing, nausea, poor appetite, poor fluid intake, rectal bleeding, vomiting, other Genitourinary: Denies: no symptoms, burning, discharge, frequency, flank pain, hematuria, incontinence, pain, urgency, other Neurologic/Psychiatric: Denies: no symptoms, anxiety, depressed, emotional problems, headache, numbness, paresthesia, pre-existing deficit, seizure, tingling, tremors, weakness, other Hematologic/Lymphatic: Denies: no symptoms, anemia, easy bleeding, easy bruising, adenopathy, other Allergies: Coded Allergies: No Known Allergies (Unverified , 04/28/20) Subjective 3/4 labs are noted, no bleeding, meds reviewed Objective Objective Current Medications Medications (Trade) Dose Ordered Sig/Jazzmine Route PRN Reason Start Time Stop Time Status Last Admin Dose Admin Atorvastatin Calcium (Lipitor) 20 mg BEDTIME ORAL 3/2/21 21:00 07/28/20 20:59 04/30/20 21:24 Ceftriaxone Sodium 1 gm/ Sodium Chloride 55 ml @ 110 mls/hr Q24H IVPB 04/30/20 11:00 05/06/20 10:59 04/30/20 11:23 Clonidine HCl (Catapres Tab) 0.1 mg Q2H PRN ORAL SBP above 170 04/28/20 23:15 07/27/20 23:14 Dextrose (Dextrose 50%) 25 ml Q30M PRN IV HYPOGLYCEMIA 04/29/20 17:45 07/28/20 17:44 Dextrose (Dextrose 50%) 50 ml Q30M PRN IV HYPOGLYCEMIA 04/29/20 17:45 07/28/20 17:44 Enoxaparin Sodium (Lovenox) 40 mg DAILY SUBQ 04/29/20 09:00 07/28/20 08:59 04/30/20 09:30 Insulin Human Regular (NovoLIN R) 5 units PRN PRN IV BS 200-299 04/29/20 17:45 07/28/20 17:44 04/29/20 21:00 Insulin Human Regular (NovoLIN R) 10 units PRN PRN IV BS=>300 04/29/20 17:45 07/28/20 17:44 Insulin Human Regular 100 units/ Sodium Chloride 101 ml @ 0 mls/hr Q24H IV 04/29/20 17:45 05/29/20 17:44 04/29/20 18:23 Lisinopril (ZestriL) 10 mg EVERY 12 HOURS ORAL 04/29/20 09:00 05/29/20 08:59 04/30/20 09:29 Miscellaneous Medication (Insulin Rate Change) 1 ea PRN MISC 04/30/20 20:00 07/29/20 19:59 Pantoprazole (Protonix) 40 mg EVERY 12 HOURS IVP 04/28/20 21:00 05/28/20 20:59 04/30/20 21:24 Potassium Chloride/Sodium Chloride 1,000 ml @ 100 mls/hr Q10H IV 04/28/20 23:45 05/28/20 23:44 05/01/20 04:07 Sodium Citrate (Bicitra) 30 ml EVERY 6 HOURS ORAL 04/30/20 12:00 05/30/20 11:59 05/01/20 06:29 Last 24 Hour Vital Signs Date Time Temp Pulse Resp B/P (MAP) Pulse Ox O2 Delivery O2 Flow Rate FiO2 05/01/20 06:30 65 16 102/68 (79) 100 05/01/20 06:00 60 14 94/58 (70) 98 05/01/20 05:30 68 14 98/60 (73) 100 05/01/20 05:00 63 15 94/62 (73) 99 05/01/20 04:30 61 14 98/64 (75) 99 05/01/20 04:00 Room Air 05/01/20 04:00 69 05/01/20 04:00 98.0 69 15 107/62 (77) 100 05/01/20 03:00 62 15 93/62 (72) 99 05/01/20 02:30 59 12 99/54 (69) 99 05/01/20 02:00 61 12 91/56 (68) 99 05/01/20 01:30 65 10 98/65 (76) 100 05/01/20 01:00 60 11 88/58 (68) 99 05/01/20 00:30 60 11 97/55 (69) 99 05/01/20 00:16 62 13 97/65 (76) 100 05/01/20 00:00 Room Air 05/01/20 00:00 98.5 62 11 87/56 (66) 99 05/01/20 00:00 65 04/30/20 23:00 67 16 97/61 (73) 100 04/30/20 22:30 59 13 98/58 (71) 100 04/30/20 22:00 63 13 88/54 (65) 99 04/30/20 21:00 75 16 101/56 (71) 98 04/30/20 21:00 87/48 04/30/20 20:00 71 04/30/20 20:00 Room Air 04/30/20 20:00 98.1 75 20 105/64 (78) 99 04/30/20 19:00 77 18 102/44 (63) 100 04/30/20 18:00 76 19 113/63 (80) 100 04/30/20 17:10 82 20 107/66 (80) 18 04/30/20 16:00 98.0 78 17 104/59 (74) 99 04/30/20 16:00 70 04/30/20 16:00 Room Air 04/30/20 15:00 78 20 98/62 (74) 100 04/30/20 14:00 78 20 97/68 (78) 99 04/30/20 13:00 74 17 108/62 (77) 98 04/30/20 12:04 Room Air 04/30/20 12:00 97.5 83 16 104/63 (77) 97 04/30/20 12:00 73 04/30/20 11:00 75 19 103/63 (76) 100 04/30/20 10:00 68 20 107/74 (85) 100 04/30/20 09:29 104/63 04/30/20 09:00 70 21 106/68 (81) 100 04/30/20 08:00 98.0 72 18 104/63 (77) 100 04/30/20 08:00 Room Air 04/30/20 08:00 74 04/30/20 06:00 68 15 98/63 (75) 100 04/30/20 05:30 65 25 103/62 (76) 99 04/30/20 05:00 67 17 95/56 (69) 100 04/30/20 04:00 Room Air 04/30/20 04:00 98.4 68 17 101/58 (72) 100 04/30/20 04:00 71 04/30/20 03:30 69 19 100/61 (74) 100 04/30/20 03:00 66 11 92/61 (71) 100 04/30/20 02:00 68 13 92/63 (73) 100 04/30/20 01:00 66 13 97/59 (72) 99 04/30/20 00:30 64 13 92/55 (67) 99 04/30/20 00:06 69 12 93/53 (66) 100 04/30/20 00:00 98.0 75 16 88/54 (65) 100 04/30/20 00:00 Room Air 04/30/20 00:00 66 04/29/20 23:00 70 15 91/57 (68) 100 04/29/20 22:00 77 20 103/66 (78) 100 04/29/20 21:00 70 14 97/64 (75) 100 04/29/20 21:00 98/70 04/29/20 20:00 98.4 79 18 105/72 (83) 100 04/29/20 20:00 70 04/29/20 20:00 Nasal Cannula 1.0 04/29/20 19:00 83 24 113/70 (84) 99 04/29/20 18:00 93 25 106/58 (74) 100 04/29/20 17:00 84 16 100/63 (75) 100 04/29/20 16:00 Nasal Cannula 1.0 04/29/20 16:00 98.2 75 14 102/62 (75) 100 04/29/20 16:00 75 04/29/20 15:30 73 17 112/66 (81) 100 04/29/20 15:00 73 18 114/65 (81) 100 04/29/20 14:30 77 12 101/63 (76) 99 04/29/20 14:00 77 12 96/60 (72) 100 04/29/20 13:00 76 13 100/61 (74) 100 04/29/20 12:30 77 13 99/61 (74) 100 04/29/20 12:00 Nasal Cannula 1.0 04/29/20 12:00 98.4 75 18 110/64 (79) 100 04/29/20 12:00 98 04/29/20 11:30 84 19 113/62 (79) 100 04/29/20 11:00 82 18 109/68 (82) 100 04/29/20 10:30 85 14 105/76 (86) 100 04/29/20 10:00 90 22 119/85 (96) 100 04/29/20 09:30 73 20 143/80 (101) 100 04/29/20 09:13 100 Nasal Cannula 1.0 24 04/29/20 09:00 88 19 138/83 (101) 100 04/29/20 08:52 124/74 04/29/20 08:30 87 16 124/74 (91) 99 04/29/20 08:00 Nasal Cannula 1.0 04/29/20 08:00 90 04/29/20 08:00 98.2 90 21 136/82 (100) 100 04/29/20 07:45 100 Nasal Cannula 3.0 32 04/29/20 07:00 79 18 140/83 (102) 100 Intake and Output 04/30/20 05/01/20 18:59 06:59 Intake Total 3907.01 ml 1307.0 ml Output Total 1932 ml 2200 ml Balance 1975.01 ml -893.0 ml Intake Oral 3000 ml 400 ml IV Total 907.01 ml 907.0 ml Output Urine Total 1931 ml 2200 ml Stool Total 1 ml Labs Test 04/28/20 14:37 04/28/20 14:40 04/28/20 14:48 04/28/20 17:06 White Blood Count 18.6 K/UL (4.8-10.8) Red Blood Count 5.01 M/UL (4.70-6.10) Hemoglobin 16.3 G/DL (14.2-18.0) Hematocrit 51.2 % (42.0-52.0) Mean Corpuscular Volume 102 FL (80-99) Mean Corpuscular Hemoglobin 32.6 PG (27.0-31.0) Mean Corpuscular Hemoglobin Concent 31.9 G/DL (32.0-36.0) Red Cell Distribution Width 12.3 % (11.6-14.8) Platelet Count 273 K/UL (150-450) Mean Platelet Volume 7.3 FL (6.5-10.1) Neutrophils (%) (Auto) % (45.0-75.0) Lymphocytes (%) (Auto) % (20.0-45.0) Monocytes (%) (Auto) % (1.0-10.0) Eosinophils (%) (Auto) % (0.0-3.0) Basophils (%) (Auto) % (0.0-2.0) Differential Total Cells Counted 100 Neutrophils % (Manual) 83 % (45-75) Lymphocytes % (Manual) 7 % (20-45) Monocytes % (Manual) 7 % (1-10) Eosinophils % (Manual) 0 % (0-3) Basophils % (Manual) 0 % (0-2) Band Neutrophils 3 % (0-8) Platelet Estimate Adequate Platelet Morphology Normal Red Blood Cell Morphology Normal Prothrombin Time 9.7 SEC (9.30-11.50) Prothromb Time International Ratio 0.9 (0.9-1.1) Activated Partial Thromboplast Time 30 SEC (23-33) D-Dimer 1.28 mg/L FEU (0.00-0.49) Sodium Level 132 MMOL/L (136-145) 144 MMOL/L (136-145) Potassium Level 3.6 MMOL/L (3.5-5.1) 2.5 MMOL/L (3.5-5.1) Chloride Level 91 MMOL/L (98-107) 104 MMOL/L (98-107) Carbon Dioxide Level 6 MMOL/L (21-32) 6 MMOL/L (21-32) Anion Gap 35 mmol/L (5-15) 34 mmol/L (5-15) Blood Urea Nitrogen 21 mg/dL (7-18) 21 mg/dL (7-18) Creatinine 1.8 MG/DL (0.55-1.30) 1.5 MG/DL (0.55-1.30) Estimat Glomerular Filtration Rate 40.3 mL/min (>60) 49.7 mL/min (>60) Glucose Level 672 MG/DL (74-106) 534 MG/DL (74-106) Lactic Acid Level 4.40 mmol/L (0.4-2.0) Calcium Level 9.6 MG/DL (8.5-10.1) 7.7 MG/DL (8.5-10.1) Phosphorus Level 8.8 MG/DL (2.5-4.9) Magnesium Level 2.8 MG/DL (1.8-2.4) Ferritin 695 NG/ML (8-388) Total Bilirubin 0.3 MG/DL (0.2-1.0) Aspartate Amino Transf (AST/SGOT) 69 U/L (15-37) Alanine Aminotransferase (ALT/SGPT) 55 U/L (12-78) Alkaline Phosphatase 124 U/L (46-116) Lactate Dehydrogenase 247 U/L (81-234) Total Creatine Kinase 262 U/L (26-308) Creatine Kinase MB 6.2 NG/ML (0.0-3.6) Creatine Kinase MB Relative Index 2.3 Troponin I 0.000 ng/mL (0.000-0.056) C-Reactive Protein, Quantitative < 0.4 mg/dL (0.00-0.90) Pro-B-Type Natriuretic Peptide 324 pg/mL (0-125) Total Protein 8.9 G/DL (6.4-8.2) Albumin 4.7 G/DL (3.4-5.0) Globulin 4.2 g/dL Albumin/Globulin Ratio 1.1 (1.0-2.7) Lipase 353 U/L (73-393) Acetone Level Positive-small (NEGATIVE) Arterial Blood pH 6.883 (7.350-7.450) Arterial Blood Partial Pressure CO2 11.4 mmHg (35.0-45.0) Arterial Blood Partial Pressure O2 315.2 mmHg (75.0-100.0) Arterial Blood HCO3 2.1 mmol/L (22.0-26.0) Arterial Blood Oxygen Saturation 98.6 % (95-100) Arterial Blood Base Excess -29.9 (-2-2) Sage Test Positive Test 04/28/20 18:25 04/29/20 04:20 04/29/20 08:58 04/29/20 10:00 White Blood Count 12.7 K/UL (4.8-10.8) Red Blood Count 4.53 M/UL (4.70-6.10) Hemoglobin 14.5 G/DL (14.2-18.0) Hematocrit 42.4 % (42.0-52.0) Mean Corpuscular Volume 94 FL (80-99) Mean Corpuscular Hemoglobin 32.0 PG (27.0-31.0) Mean Corpuscular Hemoglobin Concent 34.1 G/DL (32.0-36.0) Red Cell Distribution Width 11.4 % (11.6-14.8) Platelet Count 185 K/UL (150-450) Mean Platelet Volume 7.8 FL (6.5-10.1) Neutrophils (%) (Auto) 83.5 % (45.0-75.0) Lymphocytes (%) (Auto) 5.4 % (20.0-45.0) Monocytes (%) (Auto) 10.6 % (1.0-10.0) Eosinophils (%) (Auto) 0.0 % (0.0-3.0) Basophils (%) (Auto) 0.4 % (0.0-2.0) Sodium Level 141 MMOL/L (136-145) Potassium Level 3.3 MMOL/L (3.5-5.1) Chloride Level 108 MMOL/L (98-107) Carbon Dioxide Level 11 MMOL/L (21-32) Anion Gap 22 mmol/L (5-15) Blood Urea Nitrogen 18 mg/dL (7-18) Creatinine 1.0 MG/DL (0.55-1.30) Estimat Glomerular Filtration Rate > 60 mL/min (>60) Glucose Level 155 MG/DL (74-106) Hemoglobin A1c 9.6 % (4.3-6.0) Uric Acid 9.1 MG/DL (2.6-7.2) Calcium Level 9.2 MG/DL (8.5-10.1) Phosphorus Level 1.3 MG/DL (2.5-4.9) Magnesium Level 1.8 MG/DL (1.8-2.4) Gamma Glutamyl Transpeptidase 81 U/L (5-85) Total Creatine Kinase 219 U/L (26-308) Troponin I 0.017 ng/mL (0.000-0.056) C-Reactive Protein, Quantitative 8.8 mg/dL (0.00-0.90) Pro-B-Type Natriuretic Peptide 824 pg/mL (0-125) Triglycerides Level 401 MG/DL (30-150) Cholesterol Level 249 MG/DL (< 200) LDL Cholesterol 113 mg/dL (<100) HDL Cholesterol 52 MG/DL (40-60) Cholesterol/HDL Ratio 4.8 (3.3-4.4) Lipase 148 U/L (73-393) Thyroid Stimulating Hormone (TSH) 3.287 uiU/mL (0.358-3.740) Arterial Blood pH 7.325 (7.350-7.450) Arterial Blood Partial Pressure CO2 22.4 mmHg (35.0-45.0) Arterial Blood Partial Pressure O2 144.9 mmHg (75.0-100.0) Arterial Blood HCO3 11.4 mmol/L (22.0-26.0) Arterial Blood Oxygen Saturation 97.6 % (95-100) Arterial Blood Base Excess -12.4 (-2-2) Sage Test Positive Lactic Acid Level 1.60 mmol/L (0.4-2.0) Test 04/30/20 03:50 04/30/20 08:45 04/30/20 10:00 04/30/20 20:25 White Blood Count 12.6 K/UL (4.8-10.8) Red Blood Count 4.60 M/UL (4.70-6.10) Hemoglobin 14.5 G/DL (14.2-18.0) Hematocrit 44.1 % (42.0-52.0) Mean Corpuscular Volume 96 FL (80-99) Mean Corpuscular Hemoglobin 31.6 PG (27.0-31.0) Mean Corpuscular Hemoglobin Concent 32.9 G/DL (32.0-36.0) Red Cell Distribution Width 11.8 % (11.6-14.8) Platelet Count 184 K/UL (150-450) Mean Platelet Volume 7.3 FL (6.5-10.1) Neutrophils (%) (Auto) % (45.0-75.0) Lymphocytes (%) (Auto) % (20.0-45.0) Monocytes (%) (Auto) % (1.0-10.0) Eosinophils (%) (Auto) % (0.0-3.0) Basophils (%) (Auto) % (0.0-2.0) Differential Total Cells Counted 100 Neutrophils % (Manual) 71 % (45-75) Lymphocytes % (Manual) 8 % (20-45) Monocytes % (Manual) 7 % (1-10) Eosinophils % (Manual) 0 % (0-3) Basophils % (Manual) 2 % (0-2) Band Neutrophils 12 % (0-8) Platelet Estimate Adequate Platelet Morphology Normal Red Blood Cell Morphology Normal Sodium Level 139 MMOL/L (136-145) 140 MMOL/L (136-145) Potassium Level 2.7 MMOL/L (3.5-5.1) 3.1 MMOL/L (3.5-5.1) Chloride Level 108 MMOL/L (98-107) 109 MMOL/L (98-107) Carbon Dioxide Level 14 MMOL/L (21-32) 22 MMOL/L (21-32) Anion Gap 17 mmol/L (5-15) 9 mmol/L (5-15) Blood Urea Nitrogen 8 mg/dL (7-18) 8 mg/dL (7-18) Creatinine 0.7 MG/DL (0.55-1.30) 0.8 MG/DL (0.55-1.30) Estimat Glomerular Filtration Rate > 60 mL/min (>60) > 60 mL/min (>60) Glucose Level 90 MG/DL (74-106) 75 MG/DL (74-106) Calcium Level 9.0 MG/DL (8.5-10.1) 8.9 MG/DL (8.5-10.1) Phosphorus Level 2.7 MG/DL (2.5-4.9) Magnesium Level 1.7 MG/DL (1.8-2.4) Total Bilirubin 0.4 MG/DL (0.2-1.0) Aspartate Amino Transf (AST/SGOT) 46 U/L (15-37) Alanine Aminotransferase (ALT/SGPT) 40 U/L (12-78) Alkaline Phosphatase 64 U/L (46-116) Total Creatine Kinase 62 U/L (26-308) Troponin I 0.006 ng/mL (0.000-0.056) Pro-B-Type Natriuretic Peptide 239 pg/mL (0-125) Total Protein 5.6 G/DL (6.4-8.2) Albumin 2.5 G/DL (3.4-5.0) Globulin 3.1 g/dL Albumin/Globulin Ratio 0.8 (1.0-2.7) Free Thyroxine 0.90 NG/DL (0.76-1.46) D-Dimer 1.88 mg/L FEU (0.00-0.49) Urine Color Pale yellow Urine Appearance Slightly cloudy Urine pH 5 (4.5-8.0) Urine Specific [place] 1.015 (1.005-1.035) Urine Protein Negative (NEGATIVE) Urine Glucose (UA) 4+ (NEGATIVE) Urine Ketones 3+ (NEGATIVE) Urine Blood Negative (NEGATIVE) Urine Nitrite Negative (NEGATIVE) Urine Bilirubin Negative (NEGATIVE) Urine Urobilinogen Normal MG/DL (0.0-1.0) Urine Leukocyte Esterase 2+ (NEGATIVE) Urine RBC 0-2 /HPF (0 - 0) Urine WBC 15-20 /HPF (0 - 0) Urine Squamous Epithelial Cells Few /LPF (NONE/OCC) Urine Bacteria Moderate /HPF (NONE) Urine Yeast Moderate /HPF (NONE) Urine Opiates Screen Negative (NEGATIVE) Urine Barbiturates Screen Negative (NEGATIVE) Phencyclidine (PCP) Screen Negative (NEGATIVE) Urine Amphetamines Screen Negative (NEGATIVE) Urine Benzodiazepines Screen Negative (NEGATIVE) Urine Cocaine Screen Negative (NEGATIVE) Urine Marijuana (THC) Screen Negative (NEGATIVE) Hemoglobin A1c 12.6 % (4.3-6.0) Test 05/01/20 04:30 White Blood Count 5.6 K/UL (4.8-10.8) Red Blood Count 3.94 M/UL (4.70-6.10) Hemoglobin 12.6 G/DL (14.2-18.0) Hematocrit 37.5 % (42.0-52.0) Mean Corpuscular Volume 95 FL (80-99) Mean Corpuscular Hemoglobin 32.0 PG (27.0-31.0) Mean Corpuscular Hemoglobin Concent 33.7 G/DL (32.0-36.0) Red Cell Distribution Width 11.8 % (11.6-14.8) Platelet Count 161 K/UL (150-450) Mean Platelet Volume 7.4 FL (6.5-10.1) Neutrophils (%) (Auto) 58.9 % (45.0-75.0) Lymphocytes (%) (Auto) 28.8 % (20.0-45.0) Monocytes (%) (Auto) 9.4 % (1.0-10.0) Eosinophils (%) (Auto) 1.6 % (0.0-3.0) Basophils (%) (Auto) 1.3 % (0.0-2.0) Sodium Level 141 MMOL/L (136-145) Potassium Level 2.8 MMOL/L (3.5-5.1) Chloride Level 109 MMOL/L (98-107) Carbon Dioxide Level 20 MMOL/L (21-32) Anion Gap 13 mmol/L (5-15) Blood Urea Nitrogen 8 mg/dL (7-18) Creatinine 0.6 MG/DL (0.55-1.30) Estimat Glomerular Filtration Rate > 60 mL/min (>60) Glucose Level 145 MG/DL (74-106) Lactic Acid Level 1.00 mmol/L (0.4-2.0) Calcium Level 8.3 MG/DL (8.5-10.1) Phosphorus Level 2.7 MG/DL (2.5-4.9) Magnesium Level 1.8 MG/DL (1.8-2.4) Total Bilirubin 0.3 MG/DL (0.2-1.0) Aspartate Amino Transf (AST/SGOT) 60 U/L (15-37) Alanine Aminotransferase (ALT/SGPT) 42 U/L (12-78) Alkaline Phosphatase 61 U/L (46-116) Lactate Dehydrogenase 140 U/L (81-234) C-Reactive Protein, Quantitative 2.3 mg/dL (0.00-0.90) Pro-B-Type Natriuretic Peptide 110 pg/mL (0-125) Total Protein 5.0 G/DL (6.4-8.2) Albumin 2.2 G/DL (3.4-5.0) Globulin 2.8 g/dL Albumin/Globulin Ratio 0.8 (1.0-2.7) Height (Feet): 5 Height (Inches): 7.00 Weight (Pounds): 137 Objective Pe General: Awake and alert, appears uncomfortable HEENT: NC/AT. EOMI. Cardiovascular: Tachycardic Resp: 10 L nonrebreather. Increased work of breathing with substernal retractions ++ Abdomen: Abdomen is soft, nondistended. Nontender Skin: Intact. No abrasions, laceration or rash over the exposed skin MSK: Normal tone and bulk. Moving all extremities. No obvious deformity. Neuro: Awake and alert. Mentating appropriately. Renard Argueta MD May 01, 2020 06:47
--- NOTE | 2020-05-01 07:23 | NUR ---
NURSE HAND-OFF REPORT: Latest Vital Signs: Temperature 98.0 , Pulse 63 , B/P 100 /61 , Respiratory Rate 12 , O2 SAT 99 , Nasal Cannula, O2 Flow Rate 1.0 . Vital Sign Comment: EKG Rhythm: SR with BBB Rhythm change?: N MD Notified?: - MD Response: Latest Lewis Fall Score: 35 Fall Risk: Medium Risk Safety Measures: Call light Within Reach, Bed Alarm Zone 1, Side Rails Side Rails x2, Bed position Low and Locked. Fall Precautions: Yellow Socks Patient Fall Education Report given to Siobhan MORIN .
--- NOTE | 2020-05-01 07:25 | NUR ---
NURSE NOTES: Report received from Aleshia Braxton RN.Pt awake,alert oriented sitting up on bed ,on RA,noted no resp distress,denies any c/o pain or discomfort S-R on the monitor,voiding per urinal,skin warm and dry and intact, PIV x2 RH with Insulin drip and LW with IVF NS + 20 meq KCL at 100 ml/hr,SR up x2 HOB elevated bed lock in lowest position will continue with plans of care.
[2020-05-01] MEDS ORDERED: HydrALAZINE 25mg tab ORAL PRN (08:45)
[2020-05-01] MEDS: Enoxaparin 40mg Inj SUBQ SCH (09:28)
--- NOTE | 2020-05-01 10:00 | NUR ---
NURSE NOTES: Dr Kingsley making rounds ,pt's K level low2.8,K replacement ordered.
--- NOTE | 2020-05-01 10:01 | Infectious Diseases Prog Note ---
Assessment/Plan Assessment/Plan IMPRESSION: Sepsis versus systemic inflammatory response syndrome Pyuria, ? UTI Pneumonia, Diabetic ketoacidosis, Acute renal failure,resolved RECOMMENDATION: Continue ceftriaxone. Subjective ROS Limited/Unobtainable: Yes Constitutional: Reports: no symptoms Respiratory: Reports: no symptoms Allergies: Coded Allergies: No Known Allergies (Unverified , 04/28/20) Objective Last 24 Hour Vital Signs Date Time Temp Pulse Resp B/P (MAP) Pulse Ox O2 Delivery O2 Flow Rate FiO2 05/01/20 09:00 72 19 100/63 (75) 100 05/01/20 08:06 Room Air 05/01/20 08:04 98.1 71 15 100/82 (88) 100 05/01/20 08:00 82 05/01/20 07:00 63 12 100/61 (74) 99 05/01/20 06:30 65 16 102/68 (79) 100 05/01/20 06:00 60 14 94/58 (70) 98 05/01/20 05:30 68 14 98/60 (73) 100 05/01/20 05:00 63 15 94/62 (73) 99 05/01/20 04:30 61 14 98/64 (75) 99 05/01/20 04:00 Room Air 05/01/20 04:00 69 05/01/20 04:00 98.0 69 15 107/62 (77) 100 05/01/20 03:00 62 15 93/62 (72) 99 05/01/20 02:30 59 12 99/54 (69) 99 05/01/20 02:00 61 12 91/56 (68) 99 05/01/20 01:30 65 10 98/65 (76) 100 05/01/20 01:00 60 11 88/58 (68) 99 05/01/20 00:30 60 11 97/55 (69) 99 05/01/20 00:16 62 13 97/65 (76) 100 05/01/20 00:00 Room Air 05/01/20 00:00 98.5 62 11 87/56 (66) 99 05/01/20 00:00 65 04/30/20 23:00 67 16 97/61 (73) 100 04/30/20 22:30 59 13 98/58 (71) 100 04/30/20 22:00 63 13 88/54 (65) 99 04/30/20 21:00 75 16 101/56 (71) 98 04/30/20 21:00 87/48 04/30/20 20:00 71 04/30/20 20:00 Room Air 04/30/20 20:00 98.1 75 20 105/64 (78) 99 04/30/20 19:00 77 18 102/44 (63) 100 04/30/20 18:00 76 19 113/63 (80) 100 04/30/20 17:10 82 20 107/66 (80) 18 04/30/20 16:00 98.0 78 17 104/59 (74) 99 04/30/20 16:00 70 04/30/20 16:00 Room Air 04/30/20 15:00 78 20 98/62 (74) 100 04/30/20 14:00 78 20 97/68 (78) 99 04/30/20 13:00 74 17 108/62 (77) 98 04/30/20 12:04 Room Air 04/30/20 12:00 97.5 83 16 104/63 (77) 97 04/30/20 12:00 73 04/30/20 11:00 75 19 103/63 (76) 100 04/30/20 10:00 68 20 107/74 (85) 100 Height (Feet): 5 Height (Inches): 7.00 Weight (Pounds): 137 General Appearance: no acute distress HEENT: mucous membranes moist Respiratory/Chest: lungs clear Cardiovascular: normal rate Abdomen: soft, non tender Extremities: no edema Neurologic/Psychiatric: alert, responsive Microbiology Date/Time Source Procedure Growth Status 04/28/20 14:52 Nasopharynx SARS-CoV-2 Antigen (Rapid)(SELENE) - Final Complete 04/28/20 14:40 Blood Blood Culture - Preliminary NO GROWTH AFTER 48 HOURS Resulted 04/28/20 14:35 Blood Blood Culture - Preliminary NO GROWTH AFTER 48 HOURS Resulted Laboratory Tests Test 04/30/20 10:00 04/30/20 20:25 05/01/20 04:30 Urine Color Pale yellow Urine Appearance Slightly cloudy Urine pH 5 (4.5-8.0) Urine Specific [place] 1.015 (1.005-1.035) Urine Protein Negative (NEGATIVE) Urine Glucose (UA) 4+ (NEGATIVE) H Urine Ketones 3+ (NEGATIVE) H Urine Blood Negative (NEGATIVE) Urine Nitrite Negative (NEGATIVE) Urine Bilirubin Negative (NEGATIVE) Urine Urobilinogen Normal MG/DL (0.0-1.0) Urine Leukocyte Esterase 2+ (NEGATIVE) H Urine RBC 0-2 /HPF (0 - 0) H Urine WBC 15-20 /HPF (0 - 0) H Urine Squamous Epithelial Cells Few /LPF (NONE/OCC) Urine Bacteria Moderate /HPF (NONE) H Urine Yeast Moderate /HPF (NONE) H Urine Opiates Screen Negative (NEGATIVE) Urine Barbiturates Screen Negative (NEGATIVE) Phencyclidine (PCP) Screen Negative (NEGATIVE) Urine Amphetamines Screen Negative (NEGATIVE) Urine Benzodiazepines Screen Negative (NEGATIVE) Urine Cocaine Screen Negative (NEGATIVE) Urine Marijuana (THC) Screen Negative (NEGATIVE) Sodium Level 140 MMOL/L (136-145) 141 MMOL/L (136-145) Potassium Level 3.1 MMOL/L (3.5-5.1) L 2.8 MMOL/L (3.5-5.1) L Chloride Level 109 MMOL/L (98-107) H 109 MMOL/L (98-107) H Carbon Dioxide Level 22 MMOL/L (21-32) 20 MMOL/L (21-32) L Anion Gap 9 mmol/L (5-15) 13 mmol/L (5-15) Blood Urea Nitrogen 8 mg/dL (7-18) 8 mg/dL (7-18) Creatinine 0.8 MG/DL (0.55-1.30) 0.6 MG/DL (0.55-1.30) Estimat Glomerular Filtration Rate > 60 mL/min (>60) > 60 mL/min (>60) Glucose Level 75 MG/DL (74-106) 145 MG/DL (74-106) H Hemoglobin A1c 12.6 % (4.3-6.0) H Calcium Level 8.9 MG/DL (8.5-10.1) 8.3 MG/DL (8.5-10.1) L White Blood Count 5.6 K/UL (4.8-10.8) # Red Blood Count 3.94 M/UL (4.70-6.10) L Hemoglobin 12.6 G/DL (14.2-18.0) L Hematocrit 37.5 % (42.0-52.0) L Mean Corpuscular Volume 95 FL (80-99) Mean Corpuscular Hemoglobin 32.0 PG (27.0-31.0) H Mean Corpuscular Hemoglobin Concent 33.7 G/DL (32.0-36.0) Red Cell Distribution Width 11.8 % (11.6-14.8) Platelet Count 161 K/UL (150-450) Mean Platelet Volume 7.4 FL (6.5-10.1) Neutrophils (%) (Auto) 58.9 % (45.0-75.0) Lymphocytes (%) (Auto) 28.8 % (20.0-45.0) Monocytes (%) (Auto) 9.4 % (1.0-10.0) Eosinophils (%) (Auto) 1.6 % (0.0-3.0) Basophils (%) (Auto) 1.3 % (0.0-2.0) Lactic Acid Level 1.00 mmol/L (0.4-2.0) Phosphorus Level 2.7 MG/DL (2.5-4.9) Magnesium Level 1.8 MG/DL (1.8-2.4) Total Bilirubin 0.3 MG/DL (0.2-1.0) Aspartate Amino Transf (AST/SGOT) 60 U/L (15-37) H Alanine Aminotransferase (ALT/SGPT) 42 U/L (12-78) Alkaline Phosphatase 61 U/L (46-116) Lactate Dehydrogenase 140 U/L (81-234) C-Reactive Protein, Quantitative 2.3 mg/dL (0.00-0.90) H Pro-B-Type Natriuretic Peptide 110 pg/mL (0-125) Total Protein 5.0 G/DL (6.4-8.2) L Albumin 2.2 G/DL (3.4-5.0) L Globulin 2.8 g/dL Albumin/Globulin Ratio 0.8 (1.0-2.7) L Current Medications Medications (Trade) Dose Ordered Sig/Jazzmine Route PRN Reason Start Time Stop Time Status Last Admin Dose Admin Atorvastatin Calcium (Lipitor) 20 mg BEDTIME ORAL 04/29/20 21:00 07/28/20 20:59 04/30/20 21:24 Ceftriaxone Sodium 1 gm/ Sodium Chloride 55 ml @ 110 mls/hr Q24H IVPB 04/30/20 11:00 05/06/20 10:59 04/30/20 11:23 Clonidine HCl (Catapres Tab) 0.1 mg Q2H PRN ORAL SBP above 170 04/28/20 23:15 07/27/20 23:14 Dextrose (Dextrose 50%) 25 ml Q30M PRN IV HYPOGLYCEMIA 04/29/20 17:45 07/28/20 17:44 Dextrose (Dextrose 50%) 50 ml Q30M PRN IV HYPOGLYCEMIA 04/29/20 17:45 07/28/20 17:44 Enoxaparin Sodium (Lovenox) 40 mg DAILY SUBQ 04/29/20 09:00 07/28/20 08:59 05/01/20 09:28 Hydralazine HCl (Apresoline) 25 mg Q4H PRN ORAL bp over 160 syst 05/01/20 08:45 07/30/20 08:44 Insulin Human Regular (NovoLIN R) 5 units PRN PRN IV BS 200-299 04/29/20 17:45 07/28/20 17:44 04/29/20 21:00 Insulin Human Regular (NovoLIN R) 10 units PRN PRN IV BS=>300 04/29/20 17:45 07/28/20 17:44 Insulin Human Regular 100 units/ Sodium Chloride 101 ml @ 0 mls/hr Q24H IV 04/29/20 17:45 05/29/20 17:44 04/29/20 18:23 Miscellaneous Medication (Insulin Rate Change) 1 ea PRN MISC 04/30/20 20:00 07/29/20 19:59 Pantoprazole (Protonix) 40 mg EVERY 12 HOURS ORAL 05/01/20 09:00 05/31/20 08:59 05/01/20 09:27 Potassium Chloride/Sodium Chloride 1,000 ml @ 100 mls/hr Q10H IV 04/28/20 23:45 05/28/20 23:44 05/01/20 04:07 Potassium Chloride 100 ml @ 100 mls/hr Q1HR IVPB 05/01/20 09:00 05/01/20 12:59 05/01/20 09:27 Potassium Chloride (K-Dur) 40 meq TWICE A DAY ORAL 05/01/20 09:00 07/30/20 08:59 05/01/20 09:27 Sodium Citrate (Bicitra) 30 ml EVERY 6 HOURS ORAL 04/30/20 12:00 05/30/20 11:59 05/01/20 06:29 Sebas Posada MD May 01, 2020 10:01
--- NOTE | 2020-05-01 10:24 | Nephrology Progress Note ---
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 Low potassium addressed. BP medication adjusted. Continue per current management. April 30: UA indicative of UTI. Urine tox screen negative. Low magnesium and low potassium addressed. Continue per consultants. Previously: Hydrate Blood sugar control To correct low phosphorus low potassium and other electrolytes abnormalities as needed Per orders Subjective ROS Limited/Unobtainable: No Objective Objective Last 24 Hour Vital Signs Date Time Temp Pulse Resp B/P (MAP) Pulse Ox O2 Delivery O2 Flow Rate FiO2 05/01/20 10:00 73 17 97/68 (78) 100 05/01/20 09:00 72 19 100/63 (75) 100 05/01/20 08:06 Room Air 05/01/20 08:04 98.1 71 15 100/82 (88) 100 05/01/20 08:00 82 05/01/20 07:00 63 12 100/61 (74) 99 05/01/20 06:30 65 16 102/68 (79) 100 05/01/20 06:00 60 14 94/58 (70) 98 05/01/20 05:30 68 14 98/60 (73) 100 05/01/20 05:00 63 15 94/62 (73) 99 05/01/20 04:30 61 14 98/64 (75) 99 05/01/20 04:00 Room Air 05/01/20 04:00 69 05/01/20 04:00 98.0 69 15 107/62 (77) 100 05/01/20 03:00 62 15 93/62 (72) 99 05/01/20 02:30 59 12 99/54 (69) 99 05/01/20 02:00 61 12 91/56 (68) 99 05/01/20 01:30 65 10 98/65 (76) 100 05/01/20 01:00 60 11 88/58 (68) 99 05/01/20 00:30 60 11 97/55 (69) 99 05/01/20 00:16 62 13 97/65 (76) 100 05/01/20 00:00 Room Air 05/01/20 00:00 98.5 62 11 87/56 (66) 99 05/01/20 00:00 65 04/30/20 23:00 67 16 97/61 (73) 100 04/30/20 22:30 59 13 98/58 (71) 100 04/30/20 22:00 63 13 88/54 (65) 99 04/30/20 21:00 75 16 101/56 (71) 98 04/30/20 21:00 87/48 04/30/20 20:00 71 04/30/20 20:00 Room Air 04/30/20 20:00 98.1 75 20 105/64 (78) 99 04/30/20 19:00 77 18 102/44 (63) 100 04/30/20 18:00 76 19 113/63 (80) 100 04/30/20 17:10 82 20 107/66 (80) 18 04/30/20 16:00 98.0 78 17 104/59 (74) 99 04/30/20 16:00 70 04/30/20 16:00 Room Air 04/30/20 15:00 78 20 98/62 (74) 100 04/30/20 14:00 78 20 97/68 (78) 99 04/30/20 13:00 74 17 108/62 (77) 98 04/30/20 12:04 Room Air 04/30/20 12:00 97.5 83 16 104/63 (77) 97 04/30/20 12:00 73 04/30/20 11:00 75 19 103/63 (76) 100 Intake and Output 04/30/20 05/01/20 19:00 07:00 Intake Total 3806.0 ml 1613.060 ml Output Total 1932 ml 2200 ml Balance 1874.0 ml -586.940 ml Intake Oral 3000 ml 400 ml IV Total 806.0 ml 1213.060 ml Output Urine Total 1931 ml 2200 ml Stool Total 1 ml Current Medications Medications (Trade) Dose Ordered Sig/Jazzmine Route PRN Reason Start Time Stop Time Status Last Admin Dose Admin Atorvastatin Calcium (Lipitor) 20 mg BEDTIME ORAL 04/29/20 21:00 07/28/20 20:59 04/30/20 21:24 Ceftriaxone Sodium 1 gm/ Sodium Chloride 55 ml @ 110 mls/hr Q24H IVPB 04/30/20 11:00 05/06/20 10:59 04/30/20 11:23 Clonidine HCl (Catapres Tab) 0.1 mg Q2H PRN ORAL SBP above 170 04/28/20 23:15 07/27/20 23:14 Dextrose (Dextrose 50%) 25 ml Q30M PRN IV HYPOGLYCEMIA 04/29/20 17:45 07/28/20 17:44 Dextrose (Dextrose 50%) 50 ml Q30M PRN IV HYPOGLYCEMIA 04/29/20 17:45 07/28/20 17:44 Enoxaparin Sodium (Lovenox) 40 mg DAILY SUBQ 04/29/20 09:00 07/28/20 08:59 05/01/20 09:28 Hydralazine HCl (Apresoline) 25 mg Q4H PRN ORAL bp over 160 syst 05/01/20 08:45 07/30/20 08:44 Insulin Human Regular (NovoLIN R) 5 units PRN PRN IV BS 200-299 04/29/20 17:45 07/28/20 17:44 04/29/20 21:00 Insulin Human Regular (NovoLIN R) 10 units PRN PRN IV BS=>300 04/29/20 17:45 07/28/20 17:44 Insulin Human Regular 100 units/ Sodium Chloride 101 ml @ 0 mls/hr Q24H IV 04/29/20 17:45 05/29/20 17:44 04/29/20 18:23 Miscellaneous Medication (Insulin Rate Change) 1 ea PRN MISC 04/30/20 20:00 07/29/20 19:59 Pantoprazole (Protonix) 40 mg EVERY 12 HOURS ORAL 05/01/20 09:00 05/31/20 08:59 05/01/20 09:27 Potassium Chloride/Sodium Chloride 1,000 ml @ 100 mls/hr Q10H IV 04/28/20 23:45 05/28/20 23:44 05/01/20 04:07 Potassium Chloride 100 ml @ 100 mls/hr Q1HR IVPB 05/01/20 09:00 05/01/20 12:59 05/01/20 09:27 Potassium Chloride (K-Dur) 40 meq TWICE A DAY ORAL 05/01/20 09:00 07/30/20 08:59 05/01/20 09:27 Sodium Citrate (Bicitra) 30 ml EVERY 6 HOURS ORAL 04/30/20 12:00 05/30/20 11:59 05/01/20 06:29 Laboratory Tests 04/30/20 20:25: Sodium Level 140, Potassium Level 3.1L, Chloride Level 109H, Carbon Dioxide Level 22, Anion Gap 9, Blood Urea Nitrogen 8, Creatinine 0.8, Estimat Glomerular Filtration Rate > 60, Glucose Level 75, Hemoglobin A1c 12.6H, Calcium Level 8.9 05/01/20 04:30: Sodium Level 141, Potassium Level 2.8L, Chloride Level 109H, Carbon Dioxide Level 20L, Anion Gap 13, Blood Urea Nitrogen 8, Creatinine 0.6, Estimat G lomerular Filtration Rate > 60, Glucose Level 145H, Calcium Level 8.3L, White Blood Count 5.6#, Red Blood Count 3.94L, Hemoglobin 12.6L, Hematocrit 37.5L, Mean Corpuscular Volume 95, Mean Corpuscular Hemoglobin 32.0H, Mean Corpuscular Hemoglobin Concent 33.7, Red Cell Distribution Width 11.8, Platelet Count 161, Mean Platelet Volume 7.4, Neutrophils (%) (Auto) 58.9, Lymphocytes (%) (Auto) 28.8, Monocytes (%) (Auto) 9.4, Eosinophils (%) (Auto) 1.6, Basophils (%) (Auto) 1.3, Lactic Acid Level 1.00, Phosphorus Level 2.7, Magnesium Level 1.8, Total Bilirubin 0.3, Aspartate Amino Transf (AST/SGOT) 60H, Alanine Aminotransferase (ALT/SGPT) 42, Alkaline Phosphatase 61, Lactate Dehydrogenase 140, C-Reactive Protein, Quantitative 2.3H, Pro-B-Type Natriuretic Peptide 110, Total Protein 5.0L, Albumin 2.2L, Globulin 2.8, Albumin/Globulin Ratio 0.8L Height (Feet): 5 Height (Inches): 7.00 Weight (Pounds): 137 General Appearance: no apparent distress Cardiovascular: normal rate Respiratory/Chest: decreased breath sounds Abdomen: soft Fouladian,Calos MD May 01, 2020 10:24
[2020-05-01] MEDS: cefTRIAXone 1 GM in NS 55 ML IVPB SCH (10:27)
--- NOTE | 2020-05-01 10:48 | Cardiac Electrophysiology PN ---
Assessment/Plan Assessment/Plan 1. Tachycardia due to diabetic ketoacidosis. The heart rate is better on insulin drip. EF 65% 2. 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 3. Severe hypokalemia. Potassium was being replaced. 4. Hyperlipidemia. The LDL goal is less than 70. Now on Lipitor. Subjective Subjective In RA off pressors on insulin drip. Alert in NAd. No CP or SOB. In SR Objective Last 24 Hour Vital Signs Date Time Temp Pulse Resp B/P (MAP) Pulse Ox O2 Delivery O2 Flow Rate FiO2 05/01/20 10:00 73 17 97/68 (78) 100 05/01/20 09:00 72 19 100/63 (75) 100 05/01/20 08:06 Room Air 05/01/20 08:04 98.1 71 15 100/82 (88) 100 05/01/20 08:00 82 05/01/20 07:00 63 12 100/61 (74) 99 05/01/20 06:30 65 16 102/68 (79) 100 05/01/20 06:00 60 14 94/58 (70) 98 05/01/20 05:30 68 14 98/60 (73) 100 05/01/20 05:00 63 15 94/62 (73) 99 05/01/20 04:30 61 14 98/64 (75) 99 05/01/20 04:00 Room Air 05/01/20 04:00 69 05/01/20 04:00 98.0 69 15 107/62 (77) 100 05/01/20 03:00 62 15 93/62 (72) 99 05/01/20 02:30 59 12 99/54 (69) 99 05/01/20 02:00 61 12 91/56 (68) 99 05/01/20 01:30 65 10 98/65 (76) 100 05/01/20 01:00 60 11 88/58 (68) 99 05/01/20 00:30 60 11 97/55 (69) 99 05/01/20 00:16 62 13 97/65 (76) 100 05/01/20 00:00 Room Air 05/01/20 00:00 98.5 62 11 87/56 (66) 99 05/01/20 00:00 65 04/30/20 23:00 67 16 97/61 (73) 100 04/30/20 22:30 59 13 98/58 (71) 100 04/30/20 22:00 63 13 88/54 (65) 99 04/30/20 21:00 75 16 101/56 (71) 98 04/30/20 21:00 87/48 04/30/20 20:00 71 04/30/20 20:00 Room Air 04/30/20 20:00 98.1 75 20 105/64 (78) 99 04/30/20 19:00 77 18 102/44 (63) 100 04/30/20 18:00 76 19 113/63 (80) 100 04/30/20 17:10 82 20 107/66 (80) 18 04/30/20 16:00 98.0 78 17 104/59 (74) 99 04/30/20 16:00 70 04/30/20 16:00 Room Air 04/30/20 15:00 78 20 98/62 (74) 100 04/30/20 14:00 78 20 97/68 (78) 99 04/30/20 13:00 74 17 108/62 (77) 98 04/30/20 12:04 Room Air 04/30/20 12:00 97.5 83 16 104/63 (77) 97 04/30/20 12:00 73 04/30/20 11:00 75 19 103/63 (76) 100 Intake and Output 04/30/20 05/01/20 19:00 07:00 Intake Total 3806.0 ml 1613.060 ml Output Total 1932 ml 2200 ml Balance 1874.0 ml -586.940 ml Intake Oral 3000 ml 400 ml IV Total 806.0 ml 1213.060 ml Output Urine Total 1931 ml 2200 ml Stool Total 1 ml Laboratory Tests Test 04/30/20 20:25 05/01/20 04:30 Sodium Level 140 MMOL/L (136-145) 141 MMOL/L (136-145) Potassium Level 3.1 MMOL/L (3.5-5.1) L 2.8 MMOL/L (3.5-5.1) L Chloride Level 109 MMOL/L (98-107) H 109 MMOL/L (98-107) H Carbon Dioxide Level 22 MMOL/L (21-32) 20 MMOL/L (21-32) L Anion Gap 9 mmol/L (5-15) 13 mmol/L (5-15) Blood Urea Nitrogen 8 mg/dL (7-18) 8 mg/dL (7-18) Creatinine 0.8 MG/DL (0.55-1.30) 0.6 MG/DL (0.55-1.30) Estimat Glomerular Filtration Rate > 60 mL/min (>60) > 60 mL/min (>60) Glucose Level 75 MG/DL (74-106) 145 MG/DL (74-106) H Hemoglobin A1c 12.6 % (4.3-6.0) H Calcium Level 8.9 MG/DL (8.5-10.1) 8.3 MG/DL (8.5-10.1) L White Blood Count 5.6 K/UL (4.8-10.8) # Red Blood Count 3.94 M/UL (4.70-6.10) L Hemoglobin 12.6 G/DL (14.2-18.0) L Hematocrit 37.5 % (42.0-52.0) L Mean Corpuscular Volume 95 FL (80-99) Mean Corpuscular Hemoglobin 32.0 PG (27.0-31.0) H Mean Corpuscular Hemoglobin Concent 33.7 G/DL (32.0-36.0) Red Cell Distribution Width 11.8 % (11.6-14.8) Platelet Count 161 K/UL (150-450) Mean Platelet Volume 7.4 FL (6.5-10.1) Neutrophils (%) (Auto) 58.9 % (45.0-75.0) Lymphocytes (%) (Auto) 28.8 % (20.0-45.0) Monocytes (%) (Auto) 9.4 % (1.0-10.0) Eosinophils (%) (Auto) 1.6 % (0.0-3.0) Basophils (%) (Auto) 1.3 % (0.0-2.0) Lactic Acid Level 1.00 mmol/L (0.4-2.0) Phosphorus Level 2.7 MG/DL (2.5-4.9) Magnesium Level 1.8 MG/DL (1.8-2.4) Total Bilirubin 0.3 MG/DL (0.2-1.0) Aspartate Amino Transf (AST/SGOT) 60 U/L (15-37) H Alanine Aminotransferase (ALT/SGPT) 42 U/L (12-78) Alkaline Phosphatase 61 U/L (46-116) Lactate Dehydrogenase 140 U/L (81-234) C-Reactive Protein, Quantitative 2.3 mg/dL (0.00-0.90) H Pro-B-Type Natriuretic Peptide 110 pg/mL (0-125) Total Protein 5.0 G/DL (6.4-8.2) L Albumin 2.2 G/DL (3.4-5.0) L Globulin 2.8 g/dL Albumin/Globulin Ratio 0.8 (1.0-2.7) L Microbiology Date/Time Source Procedure Growth Status 04/28/20 14:52 Nasopharynx SARS-CoV-2 Antigen (Rapid)(SELENE) - Final Complete 04/28/20 14:40 Blood Blood Culture - Preliminary NO GROWTH AFTER 48 HOURS Resulted 04/28/20 14:35 Blood Blood Culture - Preliminary NO GROWTH AFTER 48 HOURS Resulted Objective HEAD AND NECK: No JVD. LUNGS: Clear. CARDIOVASCULAR: Regular S1 and S2 with no gallop. ABDOMEN: Soft. EXTREMITIES: No pitting edema. Jordan Ordonez MD May 01, 2020 10:48
--- NOTE | 2020-05-01 12:00 | NUR ---
NURSE NOTES: BS 73,Insulin drip turned off,pt's BS noted to be low before eating.
--- NOTE | 2020-05-01 12:54 | NUR ---
RD ASSESSMENT & RECOMMENDATIONS SEE CARE ACTIVITY FOR COMPLETE ASSESSMENT DAILY ESTIMATED NEEDS: Needs based on DKA/ 62kg 25-30 kcals/kg 3010-1579 total kcals 1-1.5 g protein/kg 62-93 g total protein 25-30 mL/kg 3131-7722 total fluid mLs NUTRITION DIAGNOSIS: Altered nutrition related lab values R/T DKA as evidenced by elev A1C 12.6, BG 672* upon adm-> now improved, U glu 4+ upon adm, elev anion gap upon adm (35-> now wnl). CURRENT DIET:[facility] MED PO DIET RECOMMENDATIONS: Maintain [facility] MED diet ADDITIONAL RECOMMENDATIONS: * Standing wt as able for accurate CBW * Monitor BGs closely for hypoglycemia w/ insulin drip * Monitor lytes, replete as needed (low K) * Reattempt diet education
--- NOTE | 2020-05-01 14:00 | NUR ---
NURSE NOTES: Called Dr Dutton ,left message on the answering service re pt's BS and any plans of discontinuing Insulin drip,awaiting return of call.
[2020-05-01] MEDS: NovoLOG Insulin Flexpen SUBQ SCH ×3 (16:30→20:52)
--- NOTE | 2020-05-01 17:00 | NUR ---
NURSE NOTES: Dr Dutton with orders BS AC/HS and discontinue Insulin drip,BS 64,pt asymptomatic,given dinner tray ,pt ate 100%,and given 8 ounce of apple juice to drink.will recheck BS after eating.
--- NOTE | 2020-05-01 18:00 | NUR ---
NURSE NOTES: Dr Dutton at bedside,seen pt,with orders to transfer pt to Telemetry.
--- NOTE | 2020-05-01 18:03 | General Progress Note ---
Subjective Allergies: Coded Allergies: No Known Allergies (Unverified , 04/28/20) All Systems: reviewed and negative except above Subjective events noted in ICU on insulin gtt Item Value Date Time Bedside Blood Glucose 64 mg/dl L 05/01/20 1650 Bedside Blood Glucose 213 mg/dl H 05/01/20 1400 Bedside Blood Glucose 287 mg/dl H 05/01/20 1000 Bedside Blood Glucose 117 mg/dl 05/01/20 0600 Bedside Blood Glucose 119 mg/dl 05/01/20 0200 Bedside Blood Glucose 108 mg/dl 04/30/20 2200 Bedside Blood Glucose 271 mg/dl H 04/30/20 1800 Objective Last 24 Hour Vital Signs Date Time Temp Pulse Resp B/P (MAP) Pulse Ox O2 Delivery O2 Flow Rate FiO2 05/01/20 17:00 86 15 112/70 (84) 99 05/01/20 16:05 Room Air 05/01/20 16:00 73 05/01/20 16:00 98.0 70 18 104/64 (77) 99 05/01/20 15:00 70 17 101/86 (91) 99 05/01/20 14:00 70 17 105/66 (79) 99 05/01/20 13:00 67 17 111/72 (85) 100 05/01/20 12:00 98.0 90 18 123/83 (96) 97 05/01/20 12:00 Room Air 05/01/20 12:00 84 05/01/20 11:00 74 17 100/63 (75) 100 05/01/20 10:00 73 17 97/68 (78) 100 05/01/20 09:00 72 19 100/63 (75) 100 05/01/20 08:06 Room Air 05/01/20 08:04 98.1 71 15 100/82 (88) 100 05/01/20 08:00 82 05/01/20 07:00 63 12 100/61 (74) 99 05/01/20 06:30 65 16 102/68 (79) 100 05/01/20 06:00 60 14 94/58 (70) 98 05/01/20 05:30 68 14 98/60 (73) 100 05/01/20 05:00 63 15 94/62 (73) 99 05/01/20 04:30 61 14 98/64 (75) 99 05/01/20 04:00 Room Air 05/01/20 04:00 69 05/01/20 04:00 98.0 69 15 107/62 (77) 100 05/01/20 03:00 62 15 93/62 (72) 99 05/01/20 02:30 59 12 99/54 (69) 99 05/01/20 02:00 61 12 91/56 (68) 99 05/01/20 01:30 65 10 98/65 (76) 100 05/01/20 01:00 60 11 88/58 (68) 99 05/01/20 00:30 60 11 97/55 (69) 99 05/01/20 00:16 62 13 97/65 (76) 100 05/01/20 00:00 Room Air 05/01/20 00:00 98.5 62 11 87/56 (66) 99 05/01/20 00:00 65 04/30/20 23:00 67 16 97/61 (73) 100 04/30/20 22:30 59 13 98/58 (71) 100 04/30/20 22:00 63 13 88/54 (65) 99 04/30/20 21:00 75 16 101/56 (71) 98 04/30/20 21:00 87/48 04/30/20 20:00 71 04/30/20 20:00 Room Air 04/30/20 20:00 98.1 75 20 105/64 (78) 99 04/30/20 19:00 77 18 102/44 (63) 100 Intake and Output 04/30/20 05/01/20 19:00 07:00 Intake Total 3806.0 ml 1613.060 ml Output Total 1932 ml 2200 ml Balance 1874.0 ml -586.940 ml Intake Oral 3000 ml 400 ml IV Total 806.0 ml 1213.060 ml Output Urine Total 1931 ml 2200 ml Stool Total 1 ml Laboratory Tests 04/30/20 20:25: Sodium Level 140, Potassium Level 3.1L, Chloride Level 109H, Carbon Dioxide Level 22, Anion Gap 9, Blood Urea Nitrogen 8, Creatinine 0.8, Estimat Glomerular Filtration Rate > 60, Glucose Level 75, Hemoglobin A1c 12.6H, Calcium Level 8.9 05/01/20 04:30: Sodium Level 141, Potassium Level 2.8L, Chloride Level 109H, Carbon Dioxide Level 20L, Anion Gap 13, Blood Urea Nitrogen 8, Creatinine 0.6, Estimat Glomerular Filtration Rate > 60, Glucose Level 145H, Calcium Level 8.3L, White Blood Count 5.6#, Red Blood Count 3.94L, Hemoglobin 12.6L, Hematocrit 37.5L, Mean Corpuscular Volume 95, Mean Corpuscular Hemoglobin 32.0H, Mean Corpuscular Hemoglobin Concent 33.7, Red Cell Distribution Width 11.8, Platelet Count 161, Mean Platelet Volume 7.4, Neutrophils (%) (Auto) 58.9, Lymphocytes (%) (Auto) 28.8, Monocytes (%) (Auto) 9.4, Eosinophils (%) (Auto) 1.6, Basophils (%) (Auto) 1.3, Lactic Acid Level 1.00, Phosphorus Level 2.7, Magnesium Level 1.8, Total Bilirubin 0.3, Aspartate Amino Transf (AST/SGOT) 60H, Alanine Aminotransferase (ALT/SGPT) 42, Alkaline Phosphatase 61, Lactate Dehydrogenase 140, C-Reactive Protein, Quantitative 2.3H, Pro-B-Type Natriuretic Peptide 110, Total Protein 5.0L, Albumin 2.2L, Globulin 2.8, Albumin/Globulin Ratio 0.8L Height (Feet): 5 Height (Inches): 7.00 Weight (Pounds): 137 General Appearance: no apparent distress Cardiovascular: normal rate Respiratory/Chest: lungs clear Abdomen: normal bowel sounds Objective Current Medications Medications (Trade) Dose Ordered Sig/Jazzmine Route PRN Reason Start Time Stop Time Status Last Admin Dose Admin Atorvastatin Calcium (Lipitor) 20 mg BEDTIME ORAL 04/29/20 21:00 07/28/20 20:59 04/30/20 21:24 Ceftriaxone Sodium 1 gm/ Sodium Chloride 55 ml @ 110 mls/hr Q24H IVPB 04/30/20 11:00 05/06/20 10:59 05/01/20 10:27 Clonidine HCl (Catapres Tab) 0.1 mg Q2H PRN ORAL SBP above 170 04/28/20 23:15 07/27/20 23:14 Dextrose (Dextrose 50%) 25 ml Q30M PRN IV Hypoglycemia 05/01/20 15:30 07/30/20 15:29 Dextrose (Dextrose 50%) 50 ml Q30M PRN IV Hypoglycemia 05/01/20 15:30 07/30/20 15:29 Enoxaparin Sodium (Lovenox) 40 mg DAILY SUBQ 04/29/20 09:00 07/28/20 08:59 05/01/20 09:28 Hydralazine HCl (Apresoline) 25 mg Q4H PRN ORAL bp over 160 syst 05/01/20 08:45 07/30/20 08:44 Insulin Aspart (NovoLOG) BEFORE MEALS AND HS SUBQ 05/01/20 16:30 07/30/20 16:29 Insulin Aspart (NovoLOG) 6 units NOVOTIAC SUBQ 05/01/20 16:50 07/30/20 16:49 Insulin Detemir (Levemir) 18 units BEDTIME SUBQ 05/01/20 21:00 07/30/20 20:59 Miscellaneous Medication (Insulin Rate Change) 1 ea PRN MISC 04/30/20 20:00 07/29/20 19:59 Pantoprazole (Protonix) 40 mg EVERY 12 HOURS ORAL 05/01/20 09:00 05/31/20 08:59 05/01/20 09:27 Potassium Chloride/Sodium Chloride 1,000 ml @ 100 mls/hr Q10H IV 04/28/20 23:45 05/28/20 23:44 05/01/20 13:41 Potassium Chloride (K-Dur) 40 meq TWICE A DAY ORAL 05/01/20 09:00 07/30/20 08:59 05/01/20 17:24 Sodium Citrate (Bicitra) 30 ml EVERY 6 HOURS ORAL 04/30/20 12:00 05/30/20 11:59 05/01/20 17:23 Assessment/Plan Problem List: (1) DKA (diabetic ketoacidoses) ICD Codes: E11.10 - Type 2 diabetes mellitus with ketoacidosis without coma SNOMED: 421558321, 54957052 (2) Hyperglycemia ICD Codes: R73.9 - Hyperglycemia, unspecified SNOMED: 06285818 (3) Elevated WBC count ICD Codes: D72.829 - Elevated white blood cell count, unspecified SNOMED: 868682271, 120936129 (4) JEREMY (acute kidney injury) ICD Codes: N17.9 - Acute kidney failure, unspecified SNOMED: 28685632, 7406125 (5) Elevated d-dimer ICD Codes: R79.89 - Other specified abnormal findings of blood chemistry SNOMED: 051343483 Status: progressing Assessment/Plan: DC insulin gtt start basal / bolus insulin regimen Ze Dutton MD May 01, 2020 18:03
--- NOTE | 2020-05-01 19:23 | NUR ---
NURSE HAND-OFF REPORT: Latest Vital Signs: Temperature 98.0 , Pulse 75 , B/P 99 /61 , Respiratory Rate 18 , O2 SAT 98 , Nasal Cannula, O2 Flow Rate 1.0 . Vital Sign Comment: stable EKG Rhythm: Sinus Rhythm Rhythm change?: N MD Notified?: - MD Response: Latest Lewis Fall Score: 35 Fall Risk: Medium Risk Safety Measures: Call light Within Reach, Bed Alarm Zone 1, Side Rails Side Rails x2, Bed position Low and Locked. Fall Precautions: Yellow Socks Patient Fall Education Report given to .Janett Turpin RN.
--- NOTE | 2020-05-01 19:25 | NUR ---
Received report from PATIENCE Jang and assumed care of patient.
[2020-05-01] MEDS: Atorvastatin 20mg tab ORAL SCH (20:51)
[2020-05-01] MEDS ORDERED: Levemir Flexpen SUBQ SCH (21:00)
--- NOTE | 2020-05-01 21:00 | NUR ---
Assessment completed, medications administered. When speaking with patient he will need a social media coordinator consult for home insulin and provider follow up. Pt is indonesian speaking and when he doesn't understand tends to say "yes, ok". Will need field tax auditor for social work consult. Will pass along to automated weaver upon transfer. Pt in NAD, resting comfortable in bed. Pt is independent and denies pain. VSS.
--- NOTE | 2020-05-01 21:02 | General Progress Note ---
Subjective ROS Limited/Unobtainable: Yes Allergies: Coded Allergies: No Known Allergies (Unverified , 04/28/20) Objective Last 24 Hour Vital Signs Date Time Temp Pulse Resp B/P (MAP) Pulse Ox O2 Delivery O2 Flow Rate FiO2 05/01/20 20:30 69 17 101/59 (73) 98 05/01/20 20:00 Room Air 05/01/20 20:00 71 18 95/55 (68) 99 05/01/20 19:30 97.8 71 19 96/59 (71) 99 05/01/20 19:00 71 18 103/59 (74) 98 05/01/20 18:00 75 18 99/61 (74) 98 05/01/20 17:00 86 15 112/70 (84) 99 05/01/20 16:05 Room Air 05/01/20 16:00 73 05/01/20 16:00 98.0 70 18 104/64 (77) 99 05/01/20 15:00 70 17 101/86 (91) 99 05/01/20 14:00 70 17 105/66 (79) 99 05/01/20 13:00 67 17 111/72 (85) 100 05/01/20 12:00 98.0 90 18 123/83 (96) 97 05/01/20 12:00 Room Air 05/01/20 12:00 84 05/01/20 11:00 74 17 100/63 (75) 100 05/01/20 10:00 73 17 97/68 (78) 100 05/01/20 09:00 72 19 100/63 (75) 100 05/01/20 08:06 Room Air 05/01/20 08:04 98.1 71 15 100/82 (88) 100 05/01/20 08:00 82 05/01/20 07:00 63 12 100/61 (74) 99 05/01/20 06:30 65 16 102/68 (79) 100 05/01/20 06:00 60 14 94/58 (70) 98 05/01/20 05:30 68 14 98/60 (73) 100 05/01/20 05:00 63 15 94/62 (73) 99 05/01/20 04:30 61 14 98/64 (75) 99 05/01/20 04:00 Room Air 05/01/20 04:00 69 05/01/20 04:00 98.0 69 15 107/62 (77) 100 05/01/20 03:00 62 15 93/62 (72) 99 05/01/20 02:30 59 12 99/54 (69) 99 05/01/20 02:00 61 12 91/56 (68) 99 05/01/20 01:30 65 10 98/65 (76) 100 05/01/20 01:00 60 11 88/58 (68) 99 05/01/20 00:30 60 11 97/55 (69) 99 05/01/20 00:16 62 13 97/65 (76) 100 05/01/20 00:00 Room Air 05/01/20 00:00 98.5 62 11 87/56 (66) 99 05/01/20 00:00 65 04/30/20 23:00 67 16 97/61 (73) 100 04/30/20 22:30 59 13 98/58 (71) 100 04/30/20 22:00 63 13 88/54 (65) 99 Intake and Output 04/30/20 05/01/20 19:00 07:00 Intake Total 3806.0 ml 1613.060 ml Output Total 1932 ml 2200 ml Balance 1874.0 ml -586.940 ml Intake Oral 3000 ml 400 ml IV Total 806.0 ml 1213.060 ml Output Urine Total 1931 ml 2200 ml Stool Total 1 ml Laboratory Tests 05/01/20 04:30: White Blood Count 5.6#, Red Blood Count 3.94L, Hemoglobin 12.6L, Hematocrit 37.5L, Mean Corpuscular Volume 95, Mean Corpuscular Hemoglobin 32.0H, Mean Corpuscular Hemoglobin Concent 33.7, Red Cell Distribution Width 11.8, Platelet Count 161, Mean Platelet Volume 7.4, Neutrophils (%) (Auto) 58.9, Lymphocytes (%) (Auto) 28.8, Monocytes (%) (Auto) 9.4, Eosinophils (%) (Auto) 1.6, Basophils (%) (Auto) 1.3, Sodium Level 141, Potassium Level 2.8L, Chloride Level 109H, Carbon Dioxide Level 20L, Anion Gap 13, Blood Urea Nitrogen 8, Creatinine 0.6, Estimat Glomerular Filtration Rate > 60, Glucose Level 145H, Lactic Acid Level 1.00, Calcium Level 8.3L, Phosphorus Level 2.7, Magnesium Level 1.8, Total Bilirubin 0.3, Aspartate Amino Transf (AST/SGOT) 60H, Alanine Aminotransferase (ALT/SGPT) 42, Alkaline Phosphatase 61, Lactate Dehydrogenase 140, C-Reactive Protein, Quantitative 2.3H, Pro-B-Type Natriuretic Peptide 110, Total Protein 5.0L, Albumin 2.2L, Globulin 2.8, Albumin/Globulin Ratio 0.8L Height (Feet): 5 Height (Inches): 7.00 Weight (Pounds): 137 Assessment/Plan Problem List: (1) DKA (diabetic ketoacidoses) ICD Codes: E11.10 - Type 2 diabetes mellitus with ketoacidosis without coma SNOMED: 037248309, 67671344 (2) Hyperglycemia ICD Codes: R73.9 - Hyperglycemia, unspecified SNOMED: 95994784 (3) JEREMY (acute kidney injury) ICD Codes: N17.9 - Acute kidney failure, unspecified SNOMED: 05480964, 0745017 (4) Elevated d-dimer ICD Codes: R79.89 - Other specified abnormal findings of blood chemistry SNOMED: 082854399 (5) Respiratory failure ICD Codes: J96.90 - Respiratory failure, unspecified, unspecified whether with hypoxia or hypercapnia SNOMED: 273603035 (6) Hypoxia ICD Codes: R09.02 - Hypoxemia SNOMED: 651570904 Status: progressing Assessment/Plan: hypokalemia dka resolved no vomit no abdminal pain htn elevate lft arf no sob Jesús Noble MD May 01, 2020 21:02
--- NOTE | 2020-05-01 21:20 | General Progress Note ---
Subjective Allergies: Coded Allergies: No Known Allergies (Unverified , 04/28/20) Subjective Feels OK' no abd complaints tolerating PO abd ultrasound negative Objective Last 24 Hour Vital Signs Date Time Temp Pulse Resp B/P (MAP) Pulse Ox O2 Delivery O2 Flow Rate FiO2 05/01/20 21:00 65 17 106/67 (80) 99 05/01/20 20:30 69 17 101/59 (73) 98 05/01/20 20:00 Room Air 05/01/20 20:00 71 18 95/55 (68) 99 05/01/20 19:30 97.8 71 19 96/59 (71) 99 05/01/20 19:00 71 18 103/59 (74) 98 05/01/20 18:00 75 18 99/61 (74) 98 05/01/20 17:00 86 15 112/70 (84) 99 05/01/20 16:05 Room Air 05/01/20 16:00 73 05/01/20 16:00 98.0 70 18 104/64 (77) 99 05/01/20 15:00 70 17 101/86 (91) 99 05/01/20 14:00 70 17 105/66 (79) 99 05/01/20 13:00 67 17 111/72 (85) 100 05/01/20 12:00 98.0 90 18 123/83 (96) 97 05/01/20 12:00 Room Air 05/01/20 12:00 84 05/01/20 11:00 74 17 100/63 (75) 100 05/01/20 10:00 73 17 97/68 (78) 100 05/01/20 09:00 72 19 100/63 (75) 100 05/01/20 08:06 Room Air 05/01/20 08:04 98.1 71 15 100/82 (88) 100 05/01/20 08:00 82 05/01/20 07:00 63 12 100/61 (74) 99 05/01/20 06:30 65 16 102/68 (79) 100 05/01/20 06:00 60 14 94/58 (70) 98 05/01/20 05:30 68 14 98/60 (73) 100 05/01/20 05:00 63 15 94/62 (73) 99 05/01/20 04:30 61 14 98/64 (75) 99 05/01/20 04:00 Room Air 05/01/20 04:00 69 05/01/20 04:00 98.0 69 15 107/62 (77) 100 05/01/20 03:00 62 15 93/62 (72) 99 05/01/20 02:30 59 12 99/54 (69) 99 05/01/20 02:00 61 12 91/56 (68) 99 05/01/20 01:30 65 10 98/65 (76) 100 05/01/20 01:00 60 11 88/58 (68) 99 05/01/20 00:30 60 11 97/55 (69) 99 05/01/20 00:16 62 13 97/65 (76) 100 05/01/20 00:00 Room Air 05/01/20 00:00 98.5 62 11 87/56 (66) 99 05/01/20 00:00 65 04/30/20 23:00 67 16 97/61 (73) 100 04/30/20 22:30 59 13 98/58 (71) 100 04/30/20 22:00 63 13 88/54 (65) 99 Intake and Output 04/30/20 05/01/20 19:00 07:00 Intake Total 3806.0 ml 1613.060 ml Output Total 1932 ml 2200 ml Balance 1874.0 ml -586.940 ml Intake Oral 3000 ml 400 ml IV Total 806.0 ml 1213.060 ml Output Urine Total 1931 ml 2200 ml Stool Total 1 ml Laboratory Tests 05/01/20 04:30: White Blood Count 5.6#, Red Blood Count 3.94L, Hemoglobin 12.6L, Hematocrit 37 .5L, Mean Corpuscular Volume 95, Mean Corpuscular Hemoglobin 32.0H, Mean Corpuscular Hemoglobin Concent 33.7, Red Cell Distribution Width 11.8, Platelet Count 161, Mean Platelet Volume 7.4, Neutrophils (%) (Auto) 58.9, Lymphocytes (%) (Auto) 28.8, Monocytes (%) (Auto) 9.4, Eosinophils (%) (Auto) 1.6, Basophils (%) (Auto) 1.3, Sodium Level 141, Potassium Level 2.8L, Chloride Level 109H, Carbon Dioxide Level 20L, Anion Gap 13, Blood Urea Nitrogen 8, Creatinine 0.6, Estimat Glomerular Filtration Rate > 60, Glucose Level 145H, Lactic Acid Level 1.00, Calcium Level 8.3L, Phosphorus Level 2.7, Magnesium Level 1.8, Total Bilirubin 0.3, Aspartate Amino Transf (AST/SGOT) 60H, Alanine Aminotransferase (ALT/SGPT) 42, Alkaline Phosphatase 61, Lactate Dehydrogenase 140, C-Reactive Protein, Quantitative 2.3H, Pro-B-Type Natriuretic Peptide 110, Total Protein 5.0L, Albumin 2.2L, Globulin 2.8, Albumin/Globulin Ratio 0.8L Height (Feet): 5 Height (Inches): 7.00 Weight (Pounds): 137 Objective WDWN NCAT supple CTA RRR abd sot ND NT no edema Assessment/Plan Status: progressing Assessment/Plan: Assessment - DKA - abnormal LFT - likely fatty liver - hypokalemia - hypomagensemia Recommendations - po as tolerated - follow labs and exam - replace Saima Disla MD May 01, 2020 21:20
--- NOTE | 2020-05-01 22:06 | NUR ---
NURSE NOTES: Patient transferred from ICU to telemetry unit. Patient is awake, alert and oriented. On room air with no signs of distress or SOB. lead systems engineer in place - SR w/ BBB. Denies any pain at this time. Patient is ambulatory. Skin in tact. Belongings accounted for. Urinal at bedside. IV intact and running NS + 20 meq KCL at 100 ml/hr. Bed locked and in lowest position. Call light in reach. Will continue plan of care.
[2020-05-02 03:56] VITALS: BP 110/63
[2020-05-02 06:08] LABS: BASOPHILS % (AUTO) 1.7 % (0.0-2.0); EOSINOPHILS % (AUTO) 1.1 % (0.0-3.0); HEMATOCRIT 38.3 % (42.0-52.0); HEMOGLOBIN 12.8 G/DL (14.2-18.0); LYMPHOCYTES % (AUTO) 33.4 % (20.0-45.0); MEAN CORPUSCULAR VOLUME 95 FL (80-99); MONOCYTES % (AUTO) 7.8 % (1.0-10.0); PLATELET COUNT 144 K/UL (150-450); RED BLOOD COUNT 4.02 M/UL (4.70-6.10); RED CELL DISTRIBUTION WIDTH 11.5 % (11.6-14.8); WHITE BLOOD COUNT 5.4 K/UL (4.8-10.8)
[2020-05-02 06:20] LABS: ALANINE AMINOTRANSFERASE 43 U/L (12-78); ALBUMIN 2.3 G/DL (3.4-5.0); ALBUMIN/GLOBULIN RATIO 0.9 (1.0-2.7); ALKALINE PHOSPHATASE 55 U/L (46-116); ANION GAP 5 mmol/L (5-15); ASPARTATE AMINO TRANSFERASE 45 U/L (15-37); BILIRUBIN,TOTAL 0.4 MG/DL (0.2-1.0); BLOOD UREA NITROGEN 9 mg/dL (7-18); CALCIUM 8.8 MG/DL (8.5-10.1); CARBON DIOXIDE 28 MMOL/L (21-32); CHLORIDE 112 MMOL/L (98-107); CREATININE 0.6 MG/DL (0.55-1.30); PHOSPHORUS 3.3 MG/DL (2.5-4.9); POTASSIUM 3.4 MMOL/L (3.5-5.1); SODIUM 145 MMOL/L (136-145)
--- NOTE | 2020-05-02 06:22 | General Progress Note ---
Subjective Allergies: Coded Allergies: No Known Allergies (Unverified , 04/28/20) Subjective events noted DKA resolved transferred out of ICU Item Value Date Time Bedside Blood Glucose 193 mg/dl H 05/01/20 2100 Bedside Blood Glucose 117 mg/dl 05/01/20 1800 Bedside Blood Glucose 213 mg/dl H 05/01/20 1400 Bedside Blood Glucose 287 mg/dl H 05/01/20 1000 Bedside Blood Glucose 117 mg/dl 05/01/20 0600 Objective Last 24 Hour Vital Signs Date Time Temp Pulse Resp B/P (MAP) Pulse Ox O2 Delivery O2 Flow Rate FiO2 05/02/20 03:56 98.2 73 18 110/63 (79) 100 05/02/20 03:38 64 05/02/20 00:00 63 05/01/20 23:56 97.9 68 18 99/63 (75) 100 05/01/20 22:13 68 05/01/20 21:00 65 17 106/67 (80) 99 05/01/20 20:30 69 17 101/59 (73) 98 05/01/20 20:00 Room Air 05/01/20 20:00 78 05/01/20 20:00 71 18 95/55 (68) 99 05/01/20 19:30 97.8 71 19 96/59 (71) 99 05/01/20 19:00 71 18 103/59 (74) 98 05/01/20 18:00 75 18 99/61 (74) 98 05/01/20 17:00 86 15 112/70 (84) 99 05/01/20 16:05 Room Air 05/01/20 16:00 73 05/01/20 16:00 98.0 70 18 104/64 (77) 99 05/01/20 15:00 70 17 101/86 (91) 99 05/01/20 14:00 70 17 105/66 (79) 99 05/01/20 13:00 67 17 111/72 (85) 100 05/01/20 12:00 98.0 90 18 123/83 (96) 97 05/01/20 12:00 Room Air 05/01/20 12:00 84 05/01/20 11:00 74 17 100/63 (75) 100 05/01/20 10:00 73 17 97/68 (78) 100 05/01/20 09:00 72 19 100/63 (75) 100 05/01/20 08:06 Room Air 05/01/20 08:04 98.1 71 15 100/82 (88) 100 05/01/20 08:00 82 05/01/20 07:00 63 12 100/61 (74) 99 05/01/20 06:30 65 16 102/68 (79) 100 Intake and Output 05/01/20 05/02/20 19:00 07:00 Intake Total 4410.0 ml 200 ml Output Total 1400 ml 1225 ml Balance 3010.0 ml -1025 ml Intake Oral 3230 ml 200 ml IV Total 1180.0 ml Output Urine Total 1400 ml 1225 ml # Voids 1 # Bowel Movements 3 Laboratory Tests 05/02/20 05:19: White Blood Count 5.4, Red Blood Count 4.02L, Hemoglobin 12.8L, Hematocrit 38.3L , Mean Corpuscular Volume 95, Mean Corpuscular Hemoglobin 31.9H, Mean Corpuscular Hemoglobin Concent 33.5, Red Cell Distribution Width 11.5L, Platelet Count 144L, Mean Platelet Volume 7.6, Neutrophils (%) (Auto) 56.0, Lymphocytes (%) (Auto) 33.4, Monocytes (%) (Auto) 7.8, Eosinophils (%) (Auto) 1.1, Basophils (%) (Auto) 1.7, Sodium Level [Pending], Potassium Level [Pending], Chloride Level [Pending], Carbon Dioxide Level [Pending], Blood Urea Nitrogen [Pending], Creatinine [Pending], Estimat Glomerular Filtration Rate [Pending], Glucose Level [Pending], Calcium Level [Pending], Phosphorus Level [Pending], Magnesium Level [Pending], Total Bilirubin [Pending], Aspartate Amino Transf (AST/SGOT) [Pending], Alanine Aminotransferase (ALT/SGPT) [Pending], Alkaline Phosphatase [Pending], Total Protein [Pending], Albumin [Pending], Globulin [Pending] Height (Feet): 5 Height (Inches): 7.00 Weight (Pounds): 137 General Appearance: no apparent distress Neck: normal alignment Cardiovascular: normal rate Abdomen: normal bowel sounds Pelvis: normal external exam Objective Current Medications Medications (Trade) Dose Ordered Sig/Jazzmine Route PRN Reason Start Time Stop Time Status Last Admin Dose Admin Atorvastatin Calcium (Lipitor) 20 mg BEDTIME ORAL 04/29/20 21:00 07/28/20 20:59 05/01/20 20:51 Ceftriaxone Sodium 1 gm/ Sodium Chloride 55 ml @ 110 mls/hr Q24H IVPB 04/30/20 11:00 05/06/20 10:59 05/01/20 10:27 Clonidine HCl (Catapres Tab) 0.1 mg Q2H PRN ORAL SBP above 170 04/28/20 23:15 07/27/20 23:14 Dextrose (Dextrose 50%) 25 ml Q30M PRN IV Hypoglycemia 05/01/20 15:30 07/30/20 15:29 Dextrose (Dextrose 50%) 50 ml Q30M PRN IV Hypoglycemia 05/01/20 15:30 07/30/20 15:29 Enoxaparin Sodium (Lovenox) 40 mg DAILY SUBQ 04/29/20 09:00 07/28/20 08:59 05/01/20 09:28 Hydralazine HCl (Apresoline) 25 mg Q4H PRN ORAL bp over 160 syst 05/01/20 08:45 07/30/20 08:44 Insulin Aspart (NovoLOG) BEFORE MEALS AND HS SUBQ 05/01/20 16:30 07/30/20 16:29 05/01/20 20:52 Insulin Aspart (NovoLOG) 6 units NOVOTIAC SUBQ 05/01/20 16:50 07/30/20 16:49 Insulin Detemir (Levemir) 18 units BEDTIME SUBQ 05/01/20 21:00 07/30/20 20:59 05/01/20 20:51 Pantoprazole (Protonix) 40 mg EVERY 12 HOURS ORAL 05/01/20 09:00 05/31/20 08:59 05/01/20 20:51 Potassium Chloride/Sodium Chloride 1,000 ml @ 100 mls/hr Q10H IV 04/28/20 23:45 05/28/20 23:44 05/01/20 20:52 Potassium Chloride (K-Dur) 40 meq TWICE A DAY ORAL 05/01/20 09:00 07/30/20 08:59 05/01/20 17:24 Sodium Citrate (Bicitra) 30 ml EVERY 6 HOURS ORAL 04/30/20 12:00 05/30/20 11:59 05/01/20 23:42 Assessment/Plan Problem List: (1) DKA (diabetic ketoacidoses) ICD Codes: E11.10 - Type 2 diabetes mellitus with ketoacidosis without coma SNOMED: 041492084, 59793776 (2) Hyperglycemia ICD Codes: R73.9 - Hyperglycemia, unspecified SNOMED: 57989343 (3) Elevated WBC count ICD Codes: D72.829 - Elevated white blood cell count, unspecified SNOMED: 743819285, 817251712 (4) JEREMY (acute kidney injury) ICD Codes: N17.9 - Acute kidney failure, unspecified SNOMED: 01866259, 4822737 (5) Elevated d-dimer ICD Codes: R79.89 - Other specified abnormal findings of blood chemistry SNOMED: 698279393 Status: progressing Assessment/Plan: Levemir 18 units qhs Novolog 6 units ac tid + SSI hypoglycemia protocol in order Ze Dutton MD May 02, 2020 06:22
[2020-05-02] MEDS: Sodium Citrate 30ml ORAL SCH ×3 (06:23→16:34)
--- NOTE | 2020-05-02 06:23 | Hematology/Onc Progress Note ---
Assessment/Plan Assessment/Plan Assessment and Recs # Elevated ddimer --> r/o hypercoag disorder --> imaging has been noted, duplex neg --> ddimer 1.28-->1.88 -> anticoagulation started --> does not need full dose unless VTE is noted # Elevated WBC count --> due to dka likely --> meds noted, on ceftriaxone # Anemia of chronic disease --> hemoconcentrated initially --> hgb 12 # DKA (diabetic ketoacidoses) --> per endo --> Iss, acchechecks # JEREMY (acute kidney injury) --> ivfs and lyete management with renal # Dvt ppx lovenox sq Appreciate consultation and leonel Rn Subjective Constitutional: Denies: no symptoms, chills, fever, malaise, weakness, other Cardiovascular: Denies: no symptoms, chest pain, edema, irregular heart rate, lightheadedness, palpitations, syncope, other Respiratory: Denies: no symptoms, cough, shortness of breath, SOB with excertion, SOB at rest, sputum, wheezing, other Gastrointestinal/Abdominal: Denies: no symptoms, abdomen distended, abdominal pain, black stools, tarry stools, blood in stool, constipated, diarrhea, difficulty swallowing, nausea, poor appetite, poor fluid intake, rectal bleeding, vomiting, other Neurologic/Psychiatric: Denies: no symptoms, anxiety, depressed, emotional problems, headache, numbness, paresthesia, pre-existing deficit, seizure, tingling, tremors, weakness, other Endocrine: Denies: no symptoms, excessive sweating, flushing, intolerance to cold, intolerance to heat, increased hunger, increased thirst, increased urine, unexplained weight gain, unexplained weight loss, other Hematologic/Lymphatic: Denies: no symptoms, anemia, easy bleeding, easy bruising, adenopathy, other Allergies: Coded Allergies: No Known Allergies (Unverified , 04/28/20) Subjective 3/4 labs are noted, no bleeding, meds reviewed 05/02 transferred out of icu to [facility], meds noted, no bleeding, labs pending Objective Objective Current Medications Medications (Trade) Dose Ordered Sig/Jazzmine Route PRN Reason Start Time Stop Time Status Last Admin Dose Admin Atorvastatin Calcium (Lipitor) 20 mg BEDTIME ORAL 04/29/20 21:00 07/28/20 20:59 3/4/21 20:51 Ceftriaxone Sodium 1 gm/ Sodium Chloride 55 ml @ 110 mls/hr Q24H IVPB 04/30/20 11:00 05/06/20 10:59 05/01/20 10:27 Clonidine HCl (Catapres Tab) 0.1 mg Q2H PRN ORAL SBP above 170 04/28/20 23:15 07/27/20 23:14 Dextrose (Dextrose 50%) 25 ml Q30M PRN IV Hypoglycemia 05/01/20 15:30 07/30/20 15:29 Dextrose (Dextrose 50%) 50 ml Q30M PRN IV Hypoglycemia 05/01/20 15:30 07/30/20 15:29 Enoxaparin Sodium (Lovenox) 40 mg DAILY SUBQ 04/29/20 09:00 07/28/20 08:59 05/01/20 09:28 Hydralazine HCl (Apresoline) 25 mg Q4H PRN ORAL bp over 160 syst 05/01/20 08:45 07/30/20 08:44 Insulin Aspart (NovoLOG) BEFORE MEALS AND HS SUBQ 05/01/20 16:30 07/30/20 16:29 05/01/20 20:52 Insulin Aspart (NovoLOG) 6 units NOVOTIAC SUBQ 05/01/20 16:50 07/30/20 16:49 Insulin Detemir (Levemir) 18 units BEDTIME SUBQ 05/01/20 21:00 07/30/20 20:59 05/01/20 20:51 Pantoprazole (Protonix) 40 mg EVERY 12 HOURS ORAL 05/01/20 09:00 05/31/20 08:59 05/01/20 20:51 Potassium Chloride/Sodium Chloride 1,000 ml @ 100 mls/hr Q10H IV 04/28/20 23:45 05/28/20 23:44 05/01/20 20:52 Potassium Chloride (K-Dur) 40 meq TWICE A DAY ORAL 05/01/20 09:00 07/30/20 08:59 05/01/20 17:24 Sodium Citrate (Bicitra) 30 ml EVERY 6 HOURS ORAL 04/30/20 12:00 05/30/20 11:59 05/01/20 23:42 Last 24 Hour Vital Signs Date Time Temp Pulse Resp B/P (MAP) Pulse Ox O2 Delivery O2 Flow Rate FiO2 05/02/20 03:56 98.2 73 18 110/63 (79) 100 05/02/20 03:38 64 05/02/20 00:00 63 05/01/20 23:56 97.9 68 18 99/63 (75) 100 05/01/20 22:13 68 05/01/20 21:00 65 17 106/67 (80) 99 05/01/20 20:30 69 17 101/59 (73) 98 05/01/20 20:00 Room Air 05/01/20 20:00 78 05/01/20 20:00 71 18 95/55 (68) 99 05/01/20 19:30 97.8 71 19 96/59 (71) 99 05/01/20 19:00 71 18 103/59 (74) 98 05/01/20 18:00 75 18 99/61 (74) 98 05/01/20 17:00 86 15 112/70 (84) 99 05/01/20 16:05 Room Air 05/01/20 16:00 73 05/01/20 16:00 98.0 70 18 104/64 (77) 99 05/01/20 15:00 70 17 101/86 (91) 99 05/01/20 14:00 70 17 105/66 (79) 99 05/01/20 13:00 67 17 111/72 (85) 100 05/01/20 12:00 98.0 90 18 123/83 (96) 97 05/01/20 12:00 Room Air 05/01/20 12:00 84 05/01/20 11:00 74 17 100/63 (75) 100 05/01/20 10:00 73 17 97/68 (78) 100 05/01/20 09:00 72 19 100/63 (75) 100 05/01/20 08:06 Room Air 05/01/20 08:04 98.1 71 15 100/82 (88) 100 05/01/20 08:00 82 05/01/20 07:00 63 12 100/61 (74) 99 05/01/20 06:30 65 16 102/68 (79) 100 05/01/20 06:00 60 14 94/58 (70) 98 05/01/20 05:30 68 14 98/60 (73) 100 05/01/20 05:00 63 15 94/62 (73) 99 05/01/20 04:30 61 14 98/64 (75) 99 05/01/20 04:00 Room Air 05/01/20 04:00 69 05/01/20 04:00 98.0 69 15 107/62 (77) 100 05/01/20 03:00 62 15 93/62 (72) 99 05/01/20 02:30 59 12 99/54 (69) 99 05/01/20 02:00 61 12 91/56 (68) 99 05/01/20 01:30 65 10 98/65 (76) 100 05/01/20 01:00 60 11 88/58 (68) 99 05/01/20 00:30 60 11 97/55 (69) 99 05/01/20 00:16 62 13 97/65 (76) 100 05/01/20 00:00 Room Air 05/01/20 00:00 98.5 62 11 87/56 (66) 99 05/01/20 00:00 65 04/30/20 23:00 67 16 97/61 (73) 100 04/30/20 22:30 59 13 98/58 (71) 100 04/30/20 22:00 63 13 88/54 (65) 99 04/30/20 21:00 75 16 101/56 (71) 98 04/30/20 21:00 87/48 04/30/20 20:00 71 04/30/20 20:00 Room Air 04/30/20 20:00 98.1 75 20 105/64 (78) 99 04/30/20 19:00 77 18 102/44 (63) 100 04/30/20 18:00 76 19 113/63 (80) 100 04/30/20 17:10 82 20 107/66 (80) 18 04/30/20 16:00 98.0 78 17 104/59 (74) 99 04/30/20 16:00 70 04/30/20 16:00 Room Air 04/30/20 15:00 78 20 98/62 (74) 100 04/30/20 14:00 78 20 97/68 (78) 99 04/30/20 13:00 74 17 108/62 (77) 98 04/30/20 12:04 Room Air 04/30/20 12:00 97.5 83 16 104/63 (77) 97 04/30/20 12:00 73 04/30/20 11:00 75 19 103/63 (76) 100 04/30/20 10:00 68 20 107/74 (85) 100 04/30/20 09:29 104/63 04/30/20 09:00 70 21 106/68 (81) 100 04/30/20 08:00 98.0 72 18 104/63 (77) 100 04/30/20 08:00 Room Air 04/30/20 08:00 74 Intake and Output 05/01/20 05/02/20 19:00 07:00 Intake Total 4410.0 ml 200 ml Output Total 1400 ml 1225 ml Balance 3010.0 ml -1025 ml Intake Oral 3230 ml 200 ml IV Total 1180.0 ml Output Urine Total 1400 ml 1225 ml # Voids 1 # Bowel Movements 3 Labs Test 04/29/20 08:58 04/29/20 10:00 04/30/20 03:50 04/30/20 08:45 Arterial Blood pH 7.325 (7.350-7.450) Arterial Blood Partial Pressure CO2 22.4 mmHg (35.0-45.0) Arterial Blood Partial Pressure O2 144.9 mmHg (75.0-100.0) Arterial Blood HCO3 11.4 mmol/L (22.0-26.0) Arterial Blood Oxygen Saturation 97.6 % (95-100) Arterial Blood Base Excess -12.4 (-2-2) Sage Test Positive Lactic Acid Level 1.60 mmol/L (0.4-2.0) White Blood Count 12.6 K/UL (4.8-10.8) Red Blood Count 4.60 M/UL (4.70-6.10) Hemoglobin 14.5 G/DL (14.2-18.0) Hematocrit 44.1 % (42.0-52.0) Mean Corpuscular Volume 96 FL (80-99) Mean Corpuscular Hemoglobin 31.6 PG (27.0-31.0) Mean Corpuscular Hemoglobin Concent 32.9 G/DL (32.0-36.0) Red Cell Distribution Width 11.8 % (11.6-14.8) Platelet Count 184 K/UL (150-450) Mean Platelet Volume 7.3 FL (6.5-10.1) Neutrophils (%) (Auto) % (45.0-75.0) Lymphocytes (%) (Auto) % (20.0-45.0) Monocytes (%) (Auto) % (1.0-10.0) Eosinophils (%) (Auto) % (0.0-3.0) Basophils (%) (Auto) % (0.0-2.0) Differential Total Cells Counted 100 Neutrophils % (Manual) 71 % (45-75) Lymphocytes % (Manual) 8 % (20-45) Monocytes % (Manual) 7 % (1-10) Eosinophils % (Manual) 0 % (0-3) Basophils % (Manual) 2 % (0-2) Band Neutrophils 12 % (0-8) Platelet Estimate Adequate Platelet Morphology Normal Red Blood Cell Morphology Normal Sodium Level 139 MMOL/L (136-145) Potassium Level 2.7 MMOL/L (3.5-5.1) Chloride Level 108 MMOL/L (98-107) Carbon Dioxide Level 14 MMOL/L (21-32) Anion Gap 17 mmol/L (5-15) Blood Urea Nitrogen 8 mg/dL (7-18) Creatinine 0.7 MG/DL (0.55-1.30) Estimat Glomerular Filtration Rate > 60 mL/min (>60) Glucose Level 90 MG/DL (74-106) Calcium Level 9.0 MG/DL (8.5-10.1) Phosphorus Level 2.7 MG/DL (2.5-4.9) Magnesium Level 1.7 MG/DL (1.8-2.4) Total Bilirubin 0.4 MG/DL (0.2-1.0) Aspartate Amino Transf (AST/SGOT) 46 U/L (15-37) Alanine Aminotransferase (ALT/SGPT) 40 U/L (12-78) Alkaline Phosphatase 64 U/L (46-116) Total Creatine Kinase 62 U/L (26-308) Troponin I 0.006 ng/mL (0.000-0.056) Pro-B-Type Natriuretic Peptide 239 pg/mL (0-125) Total Protein 5.6 G/DL (6.4-8.2) Albumin 2.5 G/DL (3.4-5.0) Globulin 3.1 g/dL Albumin/Globulin Ratio 0.8 (1.0-2.7) Free Thyroxine 0.90 NG/DL (0.76-1.46) D-Dimer 1.88 mg/L FEU (0.00-0.49) Test 04/30/20 10:00 04/30/20 20:25 05/01/20 04:30 05/02/20 05:19 Urine Color Pale yellow Urine Appearance Slightly cloudy Urine pH 5 (4.5-8.0) Urine Specific [place] 1.015 (1.005-1.035) Urine Protein Negative (NEGATIVE) Urine Glucose (UA) 4+ (NEGATIVE) Urine Ketones 3+ (NEGATIVE) Urine Blood Negative (NEGATIVE) Urine Nitrite Negative (NEGATIVE) Urine Bilirubin Negative (NEGATIVE) Urine Urobilinogen Normal MG/DL (0.0-1.0) Urine Leukocyte Esterase 2+ (NEGATIVE) Urine RBC 0-2 /HPF (0 - 0) Urine WBC 15-20 /HPF (0 - 0) Urine Squamous Epithelial Cells Few /LPF (NONE/OCC) Urine Bacteria Moderate /HPF (NONE) Urine Yeast Moderate /HPF (NONE) Urine Opiates Screen Negative (NEGATIVE) Urine Barbiturates Screen Negative (NEGATIVE) Phencyclidine (PCP) Screen Negative (NEGATIVE) Urine Amphetamines Screen Negative (NEGATIVE) Urine Benzodiazepines Screen Negative (NEGATIVE) Urine Cocaine Screen Negative (NEGATIVE) Urine Marijuana (THC) Screen Negative (NEGATIVE) Sodium Level 140 MMOL/L (136-145) 141 MMOL/L (136-145) Potassium Level 3.1 MMOL/L (3.5-5.1) 2.8 MMOL/L (3.5-5.1) Chloride Level 109 MMOL/L (98-107) 109 MMOL/L (98-107) Carbon Dioxide Level 22 MMOL/L (21-32) 20 MMOL/L (21-32) Anion Gap 9 mmol/L (5-15) 13 mmol/L (5-15) Blood Urea Nitrogen 8 mg/dL (7-18) 8 mg/dL (7-18) Creatinine 0.8 MG/DL (0.55-1.30) 0.6 MG/DL (0.55-1.30) Estimat Glomerular Filtration Rate > 60 mL/min (>60) > 60 mL/min (>60) Glucose Level 75 MG/DL (74-106) 145 MG/DL (74-106) Hemoglobin A1c 12.6 % (4.3-6.0) Calcium Level 8.9 MG/DL (8.5-10.1) 8.3 MG/DL (8.5-10.1) White Blood Count 5.6 K/UL (4.8-10.8) 5.4 K/UL (4.8-10.8) Red Blood Count 3.94 M/UL (4.70-6.10) 4.02 M/UL (4.70-6.10) Hemoglobin 12.6 G/DL (14.2-18.0) 12.8 G/DL (14.2-18.0) Hematocrit 37.5 % (42.0-52.0) 38.3 % (42.0-52.0) Mean Corpuscular Volume 95 FL (80-99) 95 FL (80-99) Mean Corpuscular Hemoglobin 32.0 PG (27.0-31.0) 31.9 PG (27.0-31.0) Mean Corpuscular Hemoglobin Concent 33.7 G/DL (32.0-36.0) 33.5 G/DL (32.0-36.0) Red Cell Distribution Width 11.8 % (11.6-14.8) 11.5 % (11.6-14.8) Platelet Count 161 K/UL (150-450) 144 K/UL (150-450) Mean Platelet Volume 7.4 FL (6.5-10.1) 7.6 FL (6.5-10.1) Neutrophils (%) (Auto) 58.9 % (45.0-75.0) 56.0 % (45.0-75.0) Lymphocytes (%) (Auto) 28.8 % (20.0-45.0) 33.4 % (20.0-45.0) Monocytes (%) (Auto) 9.4 % (1.0-10.0) 7.8 % (1.0-10.0) Eosinophils (%) (Auto) 1.6 % (0.0-3.0) 1.1 % (0.0-3.0) Basophils (%) (Auto) 1.3 % (0.0-2.0) 1.7 % (0.0-2.0) Lactic Acid Level 1.00 mmol/L (0.4-2.0) Phosphorus Level 2.7 MG/DL (2.5-4.9) Magnesium Level 1.8 MG/DL (1.8-2.4) Total Bilirubin 0.3 MG/DL (0.2-1.0) Aspartate Amino Transf (AST/SGOT) 60 U/L (15-37) Alanine Aminotransferase (ALT/SGPT) 42 U/L (12-78) Alkaline Phosphatase 61 U/L (46-116) Lactate Dehydrogenase 140 U/L (81-234) C-Reactive Protein, Quantitative 2.3 mg/dL (0.00-0.90) Pro-B-Type Natriuretic Peptide 110 pg/mL (0-125) Total Protein 5.0 G/DL (6.4-8.2) Albumin 2.2 G/DL (3.4-5.0) Globulin 2.8 g/dL Albumin/Globulin Ratio 0.8 (1.0-2.7) Height (Feet): 5 Height (Inches): 7.00 Weight (Pounds): 137 Objective Pe General: Awake and alert, appears uncomfortable HEENT: NC/AT. EOMI. Cardiovascular: Tachycardic Resp: 10 L nonrebreather. Increased work of breathing with substernal retractions ++ Abdomen: Abdomen is soft, nondistended. Nontender Skin: Intact. No abrasions, laceration or rash over the exposed skin MSK: Normal tone and bulk. Moving all extremities. No obvious deformity. Neuro: Awake and alert. Mentating appropriately. Renard Argueta MD May 02, 2020 06:23
[2020-05-02] MEDS: NovoLOG Insulin Flexpen SUBQ SCH ×7 (06:24→21:09)
--- NOTE | 2020-05-02 06:39 | NUR ---
NURSE NOTES: Patient's blood glucose noted to be 69. Patient asymptomatic. Gave juice x2 and a sandwich. Blood sugar 93 upon recheck. Spoke with Dr. Dutton. New orders received. Will follow plan of care.
--- NOTE | 2020-05-02 06:44 | NUR ---
NURSE HAND-OFF REPORT: Important Events on Shift: Transfer from ICU to Tele; Hypoglycemia Patient Status: Stable Diet: CCHO med Pending Orders: N/A Pending Results/Labs: Mag, Phos, CMP, CBC Pending MD notification: N/A Latest Vital Signs: Temperature 98.2 , Pulse 73 , B/P 110 /63 , Respiratory Rate 18 , O2 SAT 100 , Nasal Cannula, O2 Flow Rate 1.0 . Vital Sign Comment: N/A EKG Rhythm: SR W/ BBB Rhythm change?: N MD Notified?: - MD Response: Latest Lewis Fall Score: 35 Fall Risk: Medium Risk Safety Measures: Call light Within Reach, Bed Alarm Zone 1, Side Rails Side Rails x2, Bed position Low and Locked. Fall Precautions: Patient Fall Education
[2020-05-02] MEDS: NS w/KCl 20mEq 1000ml 1,000 ML IV SCH ×2 (07:11→16:32)
[2020-05-02 08:00] VITALS: BP 102/62
[2020-05-02] MEDS: Enoxaparin 40mg Inj SUBQ SCH (09:14)
--- NOTE | 2020-05-02 09:50 | Cardiac Electrophysiology PN ---
Assessment/Plan Assessment/Plan 1. Tachycardia due to diabetic ketoacidosis. The heart rate is better on insulin drip. EF 65% On NS iv fluid 2. Bifascicular block with right bundle-branch block and left posterior f ascicular block. No syncope or CHB 3. Severe hypokalemia. Potassium replaced. 4. Hyperlipidemia. The LDL goal is less than 70. Now on Lipitor. 5. S/P DKA, now off insulin drip DW RN Subjective Subjective On RA off pressors off insulin drip and transferred out of ICU. Alert in NAD. No CP or SOB. In SR Objective Last 24 Hour Vital Signs Date Time Temp Pulse Resp B/P (MAP) Pulse Ox O2 Delivery O2 Flow Rate FiO2 05/02/20 08:00 69 05/02/20 08:00 98.7 84 18 102/62 (75) 100 05/02/20 03:56 98.2 73 18 110/63 (79) 100 05/02/20 03:38 64 05/02/20 00:00 63 05/01/20 23:56 97.9 68 18 99/63 (75) 100 05/01/20 22:13 68 05/01/20 21:00 65 17 106/67 (80) 99 05/01/20 20:30 69 17 101/59 (73) 98 05/01/20 20:00 Room Air 05/01/20 20:00 78 05/01/20 20:00 71 18 95/55 (68) 99 05/01/20 19:30 97.8 71 19 96/59 (71) 99 05/01/20 19:00 71 18 103/59 (74) 98 05/01/20 18:00 75 18 99/61 (74) 98 05/01/20 17:00 86 15 112/70 (84) 99 05/01/20 16:05 Room Air 05/01/20 16:00 73 05/01/20 16:00 98.0 70 18 104/64 (77) 99 05/01/20 15:00 70 17 101/86 (91) 99 05/01/20 14:00 70 17 105/66 (79) 99 05/01/20 13:00 67 17 111/72 (85) 100 05/01/20 12:00 98.0 90 18 123/83 (96) 97 05/01/20 12:00 Room Air 05/01/20 12:00 84 05/01/20 11:00 74 17 100/63 (75) 100 05/01/20 10:00 73 17 97/68 (78) 100 Intake and Output 05/01/20 05/02/20 19:00 07:00 Intake Total 4410.0 ml 200 ml Output Total 1400 ml 1225 ml Balance 3010.0 ml -1025 ml Intake Oral 3230 ml 200 ml IV Total 1180.0 ml Output Urine Total 1400 ml 1225 ml # Voids 1 # Bowel Movements 3 Laboratory Tests Test 05/02/20 05:19 White Blood Count 5.4 K/UL (4.8-10.8) Red Blood Count 4.02 M/UL (4.70-6.10) L Hemoglobin 12.8 G/DL (14.2-18.0) L Hematocrit 38.3 % (42.0-52.0) L Mean Corpuscular Volume 95 FL (80-99) Mean Corpuscular Hemoglobin 31.9 PG (27.0-31.0) H Mean Corpuscular Hemoglobin Concent 33.5 G/DL (32.0-36.0) Red Cell Distribution Width 11.5 % (11.6-14.8) L Platelet Count 144 K/UL (150-450) L Mean Platelet Volume 7.6 FL (6.5-10.1) Neutrophils (%) (Auto) 56.0 % (45.0-75.0) Lymphocytes (%) (Auto) 33.4 % (20.0-45.0) Monocytes (%) (Auto) 7.8 % (1.0-10.0) Eosinophils (%) (Auto) 1.1 % (0.0-3.0) Basophils (%) (Auto) 1.7 % (0.0-2.0) Sodium Level 145 MMOL/L (136-145) Potassium Level 3.4 MMOL/L (3.5-5.1) L Chloride Level 112 MMOL/L (98-107) H Carbon Dioxide Level 28 MMOL/L (21-32) Anion Gap 5 mmol/L (5-15) Blood Urea Nitrogen 9 mg/dL (7-18) Creatinine 0.6 MG/DL (0.55-1.30) Estimat Glomerular Filtration Rate > 60 mL/min (>60) Glucose Level 75 MG/DL (74-106) Calcium Level 8.8 MG/DL (8.5-10.1) Phosphorus Level 3.3 MG/DL (2.5-4.9) Magnesium Level 1.7 MG/DL (1.8-2.4) L Total Bilirubin 0.4 MG/DL (0.2-1.0) Aspartate Amino Transf (AST/SGOT) 45 U/L (15-37) H Alanine Aminotransferase (ALT/SGPT) 43 U/L (12-78) Alkaline Phosphatase 55 U/L (46-116) Total Protein 5.0 G/DL (6.4-8.2) L Albumin 2.3 G/DL (3.4-5.0) L Globulin 2.7 g/dL Albumin/Globulin Ratio 0.9 (1.0-2.7) L Microbiology Date/Time Source Procedure Growth Status 04/30/20 10:00 Urine,Clean Catch Urine Culture - Final Strep Agalactiae Group B Diphtheroids Complete Objective HEAD AND NECK: No JVD. LUNGS: Clear. CARDIOVASCULAR: Regular S1 and S2 with no gallop. ABDOMEN: Soft. EXTREMITIES: No pitting edema. Jordan Ordonez MD May 02, 2020 09:50
--- NOTE | 2020-05-02 10:44 | Infectious Diseases Prog Note ---
Assessment/Plan Assessment/Plan IMPRESSION: Sepsis versus systemic inflammatory response syndrome Strep group B UTI Pneumonia, Diabetic ketoacidosis, Acute renal failure,resolved RECOMMENDATION: Continue ceftriaxone. Subjective ROS Limited/Unobtainable: Yes Constitutional: Reports: no symptoms, other - tranferred from ICU to telemetry Respiratory: Reports: no symptoms Cardiovascular: Reports: no symptoms Gastrointestinal/Abdominal: Reports: no symptoms Allergies: Coded Allergies: No Known Allergies (Unverified , 04/28/20) Objective Last 24 Hour Vital Signs Date Time Temp Pulse Resp B/P (MAP) Pulse Ox O2 Delivery O2 Flow Rate FiO2 05/02/20 08:00 69 05/02/20 08:00 98.7 84 18 102/62 (75) 100 05/02/20 07:00 100 Room Air 21 05/02/20 03:56 98.2 73 18 110/63 (79) 100 05/02/20 03:38 64 05/02/20 00:00 63 05/01/20 23:56 97.9 68 18 99/63 (75) 100 05/01/20 22:13 68 05/01/20 21:00 65 17 106/67 (80) 99 05/01/20 20:30 69 17 101/59 (73) 98 05/01/20 20:00 Room Air 05/01/20 20:00 78 05/01/20 20:00 71 18 95/55 (68) 99 05/01/20 19:30 97.8 71 19 96/59 (71) 99 05/01/20 19:00 71 18 103/59 (74) 98 05/01/20 18:00 75 18 99/61 (74) 98 05/01/20 17:00 86 15 112/70 (84) 99 05/01/20 16:05 Room Air 05/01/20 16:00 73 05/01/20 16:00 98.0 70 18 104/64 (77) 99 05/01/20 15:00 70 17 101/86 (91) 99 05/01/20 14:00 70 17 105/66 (79) 99 05/01/20 13:00 67 17 111/72 (85) 100 05/01/20 12:00 98.0 90 18 123/83 (96) 97 05/01/20 12:00 Room Air 05/01/20 12:00 84 05/01/20 11:00 74 17 100/63 (75) 100 Height (Feet): 5 Height (Inches): 7.00 Weight (Pounds): 137 General Appearance: no acute distress HEENT: mucous membranes moist Respiratory/Chest: lungs clear Cardiovascular: normal rate Abdomen: soft, non tender Extremities: no edema Neurologic/Psychiatric: alert, responsive Microbiology Date/Time Source Procedure Growth Status 04/30/20 10:00 Urine,Clean Catch Urine Culture - Final Strep Agalactiae Group B Diphtheroids Complete Laboratory Tests Test 05/02/20 05:19 White Blood Count 5.4 K/UL (4.8-10.8) Red Blood Count 4.02 M/UL (4.70-6.10) L Hemoglobin 12.8 G/DL (14.2-18.0) L Hematocrit 38.3 % (42.0-52.0) L Mean Corpuscular Volume 95 FL (80-99) Mean Corpuscular Hemoglobin 31.9 PG (27.0-31.0) H Mean Corpuscular Hemoglobin Concent 33.5 G/DL (32.0-36.0) Red Cell Distribution Width 11.5 % (11.6-14.8) L Platelet Count 144 K/UL (150-450) L Mean Platelet Volume 7.6 FL (6.5-10.1) Neutrophils (%) (Auto) 56.0 % (45.0-75.0) Lymphocytes (%) (Auto) 33.4 % (20.0-45.0) Monocytes (%) (Auto) 7.8 % (1.0-10.0) Eosinophils (%) (Auto) 1.1 % (0.0-3.0) Basophils (%) (Auto) 1.7 % (0.0-2.0) Sodium Level 145 MMOL/L (136-145) Potassium Level 3.4 MMOL/L (3.5-5.1) L Chloride Level 112 MMOL/L (98-107) H Carbon Dioxide Level 28 MMOL/L (21-32) Anion Gap 5 mmol/L (5-15) Blood Urea Nitrogen 9 mg/dL (7-18) Creatinine 0.6 MG/DL (0.55-1.30) Estimat Glomerular Filtration Rate > 60 mL/min (>60) Glucose Level 75 MG/DL (74-106) Calcium Level 8.8 MG/DL (8.5-10.1) Phosphorus Level 3.3 MG/DL (2.5-4.9) Magnesium Level 1.7 MG/DL (1.8-2.4) L Total Bilirubin 0.4 MG/DL (0.2-1.0) Aspartate Amino Transf (AST/SGOT) 45 U/L (15-37) H Alanine Aminotransferase (ALT/SGPT) 43 U/L (12-78) Alkaline Phosphatase 55 U/L (46-116) Total Protein 5.0 G/DL (6.4-8.2) L Albumin 2.3 G/DL (3.4-5.0) L Globulin 2.7 g/dL Albumin/Globulin Ratio 0.9 (1.0-2.7) L Current Medications Medications (Trade) Dose Ordered Sig/Jazzmine Route PRN Reason Start Time Stop Time Status Last Admin Dose Admin Atorvastatin Calcium (Lipitor) 20 mg BEDTIME ORAL 04/29/20 21:00 07/28/20 20:59 05/01/20 20:51 Ceftriaxone Sodium 1 gm/ Sodium Chloride 55 ml @ 110 mls/hr Q24H IVPB 04/30/20 11:00 05/06/20 10:59 05/01/20 10:27 Clonidine HCl (Catapres Tab) 0.1 mg Q2H PRN ORAL SBP above 170 04/28/20 23:15 07/27/20 23:14 Dextrose (Dextrose 50%) 25 ml Q30M PRN IV Hypoglycemia 05/01/20 15:30 07/30/20 15:29 Dextrose (Dextrose 50%) 50 ml Q30M PRN IV Hypoglycemia 05/01/20 15:30 07/30/20 15:29 Enoxaparin Sodium (Lovenox) 40 mg DAILY SUBQ 04/29/20 09:00 07/28/20 08:59 05/02/20 09:14 Hydralazine HCl (Apresoline) 25 mg Q4H PRN ORAL bp over 160 syst 05/01/20 08:45 07/30/20 08:44 Insulin Aspart (NovoLOG) BEFORE MEALS AND HS SUBQ 05/01/20 16:30 07/30/20 16:29 05/01/20 20:52 Insulin Aspart (NovoLOG) 4 units NOVOTIAC SUBQ 05/02/20 11:50 07/30/20 16:49 Insulin Detemir (Levemir) 12 units BEDTIME SUBQ 05/02/20 21:00 07/30/20 20:59 Pantoprazole (Protonix) 40 mg EVERY 12 HOURS ORAL 05/01/20 09:00 05/31/20 08:59 05/02/20 09:08 Potassium Chloride/Sodium Chloride 1,000 ml @ 100 mls/hr Q10H IV 04/28/20 23:45 05/28/20 23:44 05/02/20 07:11 Potassium Chloride 100 ml @ 100 mls/hr Q1HR IVPB 05/02/20 09:00 05/02/20 10:59 05/02/20 09:09 Potassium Chloride (K-Dur) 40 meq TWICE A DAY ORAL 05/01/20 09:00 07/30/20 08:59 05/02/20 09:09 Sodium Citrate (Bicitra) 30 ml EVERY 6 HOURS ORAL 04/30/20 12:00 05/30/20 11:59 05/02/20 06:23 Sebas Posada MD May 02, 2020 10:44
[2020-05-02] MEDS: cefTRIAXone 1 GM in NS 55 ML IVPB SCH (11:14)
--- NOTE | 2020-05-02 11:40 | NUR ---
NURSE NOTES: Dr. Lovett made aware that TLC @ right femoral came out- he came and inserted new TLC @ left subclavian with out difficulty- chest X ray ordered to confirm placement Addendum: 05/02/20 at 1201 by SOSA MARKS RN RN Wrong entry-entered for wrong patient
[2020-05-02 12:00] VITALS: BP 104/71
--- NOTE | 2020-05-02 13:10 | Nephrology Progress Note ---
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 Renal parameters within normal limit. Medication list reviewed. Continue per consultants. May 01: Labs reviewed. Low potassium addressed. BP medication adjusted. Continue per current management. April 30: UA indicative of UTI. Urine tox screen negative. Low magnesium and low potassium addressed. Continue per consultants. Previously: Hydrate Blood sugar control To correct low phosphorus low potassium and other electrolytes abnormalities as needed Per orders Subjective ROS Limited/Unobtainable: No Constitutional: Reports: malaise, weakness Objective Objective Last 24 Hour Vital Signs Date Time Temp Pulse Resp B/P (MAP) Pulse Ox O2 Delivery O2 Flow Rate FiO2 05/02/20 08:00 69 05/02/20 08:00 98.7 84 18 102/62 (75) 100 05/02/20 07:00 100 Room Air 21 05/02/20 03:56 98.2 73 18 110/63 (79) 100 05/02/20 03:38 64 05/02/20 00:00 63 05/01/20 23:56 97.9 68 18 99/63 (75) 100 05/01/20 22:13 68 05/01/20 21:00 65 17 106/67 (80) 99 05/01/20 20:30 69 17 101/59 (73) 98 05/01/20 20:00 Room Air 05/01/20 20:00 78 05/01/20 20:00 71 18 95/55 (68) 99 05/01/20 19:30 97.8 71 19 96/59 (71) 99 05/01/20 19:00 71 18 103/59 (74) 98 05/01/20 18:00 75 18 99/61 (74) 98 05/01/20 17:00 86 15 112/70 (84) 99 05/01/20 16:05 Room Air 05/01/20 16:00 73 05/01/20 16:00 98.0 70 18 104/64 (77) 99 05/01/20 15:00 70 17 101/86 (91) 99 05/01/20 14:00 70 17 105/66 (79) 99 Intake and Output 05/01/20 05/02/20 19:00 07:00 Intake Total 4410.0 ml 200 ml Output Total 1400 ml 1225 ml Balance 3010.0 ml -1025 ml Intake Oral 3230 ml 200 ml IV Total 1180.0 ml Output Urine Total 1400 ml 1225 ml # Voids 1 # Bowel Movements 3 Current Medications Medications (Trade) Dose Ordered Sig/Jazzmine Route PRN Reason Start Time Stop Time Status Last Admin Dose Admin Atorvastatin Calcium (Lipitor) 20 mg BEDTIME ORAL 04/29/20 21:00 07/28/20 20:59 05/01/20 20:51 Ceftriaxone Sodium 1 gm/ Sodium Chloride 55 ml @ 110 mls/hr Q24H IVPB 04/30/20 11:00 05/06/20 10:59 05/02/20 11:14 Clonidine HCl (Catapres Tab) 0.1 mg Q2H PRN ORAL SBP above 170 04/28/20 23:15 07/27/20 23:14 Dextrose (Dextrose 50%) 25 ml Q30M PRN IV Hypoglycemia 05/01/20 15:30 07/30/20 15:29 Dextrose (Dextrose 50%) 50 ml Q30M PRN IV Hypoglycemia 05/01/20 15:30 07/30/20 15:29 Enoxaparin Sodium (Lovenox) 40 mg DAILY SUBQ 04/29/20 09:00 07/28/20 08:59 05/02/20 09:14 Hydralazine HCl (Apresoline) 25 mg Q4H PRN ORAL bp over 160 syst 05/01/20 08:45 07/30/20 08:44 Insulin Aspart (NovoLOG) BEFORE MEALS AND HS SUBQ 05/01/20 16:30 07/30/20 16:29 05/02/20 11:17 Insulin Aspart (NovoLOG) 4 units NOVOTIAC SUBQ 05/02/20 11:50 07/30/20 16:49 05/02/20 11:58 Insulin Detemir (Levemir) 12 units BEDTIME SUBQ 05/02/20 21:00 07/30/20 20:59 Pantoprazole (Protonix) 40 mg EVERY 12 HOURS ORAL 05/01/20 09:00 05/31/20 08:59 05/02/20 09:08 Potassium Chloride/Sodium Chloride 1,000 ml @ 100 mls/hr Q10H IV 04/28/20 23:45 05/28/20 23:44 05/02/20 07:11 Potassium Chloride (K-Dur) 40 meq TWICE A DAY ORAL 05/01/20 09:00 07/30/20 08:59 05/02/20 09:09 Sodium Citrate (Bicitra) 30 ml EVERY 6 HOURS ORAL 04/30/20 12:00 05/30/20 11:59 05/02/20 11:13 Laboratory Tests 05/02/20 05:19: White Blood Count 5.4, Red Blood Count 4.02L, Hemoglobin 12.8L, Hematocrit 38.3L , Mean Corpuscular Volume 95, Mean Corpuscular Hemoglobin 31.9H, Mean Corpuscular Hemoglobin Concent 33.5, Red Cell Distribution Width 11.5L, Platelet Count 144L, Mean Platelet Volume 7.6, Neutrophils (%) (Auto) 56.0, Lymphocytes (%) (Auto) 33.4, Monocytes (%) (Auto) 7.8, Eosinophils (%) (Auto) 1.1, Basophils (%) (Auto) 1.7, Sodium Level 145, Potassium Level 3.4L, Chloride Level 112H, Carbon Dioxide Level 28, Anion Gap 5, Blood Urea Nitrogen 9, Creatinine 0.6, Estimat Glomerular Filtration Rate > 60, Glucose Level 75, Calcium Level 8.8, Phosphorus Level 3.3, Magnesium Level 1.7L, Total Bilirubin 0.4, Aspartate Amino Transf (AST/SGOT) 45H, Alanine Aminotransferase (ALT/SGPT) 43, Alkaline Phosphatase 55, Total Protein 5.0L, Albumin 2.3L, Globulin 2.7, Albumin/Globulin Ratio 0.9L Height (Feet): 5 Height (Inches): 7.00 Weight (Pounds): 137 General Appearance: no apparent distress Cardiovascular: normal rate Respiratory/Chest: decreased breath sounds Abdomen: soft Calos Kingsley MD May 02, 2020 13:10
[2020-05-02 16:00] VITALS: BP 109/72
[2020-05-02 20:00] VITALS: BP 106/66
--- NOTE | 2020-05-02 20:10 | General Progress Note ---
Subjective Allergies: Coded Allergies: No Known Allergies (Unverified , 04/28/20) Subjective Feels OK' no abd complaints tolerating PO abd ultrasound negative Objective Last 24 Hour Vital Signs Date Time Temp Pulse Resp B/P (MAP) Pulse Ox O2 Delivery O2 Flow Rate FiO2 05/02/20 16:00 63 05/02/20 16:00 98.1 93 19 109/72 (84) 99 05/02/20 12:00 98.8 81 19 104/71 (82) 100 05/02/20 12:00 69 05/02/20 09:00 Room Air 05/02/20 08:00 69 05/02/20 08:00 98.7 84 18 102/62 (75) 100 05/02/20 07:00 100 Room Air 21 05/02/20 03:56 98.2 73 18 110/63 (79) 100 05/02/20 03:38 64 05/02/20 00:00 63 05/01/20 23:56 97.9 68 18 99/63 (75) 100 05/01/20 22:13 68 05/01/20 21:00 65 17 106/67 (80) 99 05/01/20 20:30 69 17 101/59 (73) 98 Intake and Output 05/01/20 05/02/20 19:00 07:00 Intake Total 4410.0 ml 200 ml Output Total 1400 ml 1225 ml Balance 3010.0 ml -1025 ml Intake Oral 3230 ml 200 ml IV Total 1180.0 ml Output Urine Total 1400 ml 1225 ml # Voids 1 # Bowel Movements 3 Laboratory Tests 05/02/20 05:19: White Blood Count 5.4, Red Blood Count 4.02L, Hemoglobin 12.8L, Hematocrit 38.3L , Mean Corpuscular Volume 95, Mean Corpuscular Hemoglobin 31.9H, Mean Corpuscular Hemoglobin Concent 33.5, Red Cell Distribution Width 11.5L, Platelet Count 144L, Mean Platelet Volume 7.6, Neutrophils (%) (Auto) 56.0, Lymphocytes (%) (Auto) 33.4, Monocytes (%) (Auto) 7.8, Eosinophils (%) (Auto) 1.1, Basophils (%) (Auto) 1.7, Sodium Level 145, Potassium Level 3.4L, Chloride Level 112H, Carbon Dioxide Level 28, Anion Gap 5, Blood Urea Nitrogen 9, Creatinine 0.6, Estimat Glomerular Filtration Rate > 60, Glucose Level 75, Calcium Level 8.8, Phosphorus Level 3.3, Magnesium Level 1.7L, Total Bilirubin 0.4, Aspartate Amino Transf (AST/SGOT) 45H, Alanine Aminotransferase (ALT/SGPT) 43, Alkaline Phosphatase 55, Total Protein 5.0L, Albumin 2.3L, Globulin 2.7, Albumin/Globulin Ratio 0.9L Height (Feet): 5 Height (Inches): 7.00 Weight (Pounds): 137 Objective WDWN NCAT supple CTA RRR abd sot ND NT no edema Assessment/Plan Status: progressing Assessment/Plan: Assessment - DKA - abnormal LFT - likely fatty liver - hypokalemia - hypomagensemia Recommendations - po as tolerated - follow labs and exam - replace lytes PRN - f/u hepatitis serologies Saima Rodriguez MD May 02, 2020 20:10
[2020-05-02] MEDS: Levemir Flexpen SUBQ SCH (21:10)
[2020-05-02] MEDS: Atorvastatin 20mg tab ORAL SCH (21:11)
--- NOTE | 2020-05-02 21:20 | General Progress Note ---
Subjective ROS Limited/Unobtainable: Yes Allergies: Coded Allergies: No Known Allergies (Unverified , 04/28/20) Objective Last 24 Hour Vital Signs Date Time Temp Pulse Resp B/P (MAP) Pulse Ox O2 Delivery O2 Flow Rate FiO2 05/02/20 16:00 63 05/02/20 16:00 98.1 93 19 109/72 (84) 99 05/02/20 12:00 98.8 81 19 104/71 (82) 100 05/02/20 12:00 69 05/02/20 09:00 Room Air 05/02/20 08:00 69 05/02/20 08:00 98.7 84 18 102/62 (75) 100 05/02/20 07:00 100 Room Air 21 05/02/20 03:56 98.2 73 18 110/63 (79) 100 05/02/20 03:38 64 05/02/20 00:00 63 05/01/20 23:56 97.9 68 18 99/63 (75) 100 05/01/20 22:13 68 Intake and Output 05/01/20 05/02/20 19:00 07:00 Intake Total 4410.0 ml 200 ml Output Total 1400 ml 1225 ml Balance 3010.0 ml -1025 ml Intake Oral 3230 ml 200 ml IV Total 1180.0 ml Output Urine Total 1400 ml 1225 ml # Voids 1 # Bowel Movements 3 Laboratory Tests 05/02/20 05:19: White Blood Count 5.4, Red Blood Count 4.02L, Hemoglobin 12.8L, Hematocrit 38.3L , Mean Corpuscular Volume 95, Mean Corpuscular Hemoglobin 31.9H, Mean Corpuscular Hemoglobin Concent 33.5, Red Cell Distribution Width 11.5L, Platelet Count 144L, Mean Platelet Volume 7.6, Neutrophils (%) (Auto) 56.0, Lymphocytes (%) (Auto) 33.4, Monocytes (%) (Auto) 7.8, Eosinophils (%) (Auto) 1.1, Basophils (%) (Auto) 1.7, Sodium Level 145, Potassium Level 3.4L, Chloride Level 112H, Carbon Dioxide Level 28, Anion Gap 5, Blood Urea Nitrogen 9, Creatinine 0.6, Estimat Glomerular Filtration Rate > 60, Glucose Level 75, Calcium Level 8.8, Phosphorus Level 3.3, Magnesium Level 1.7L, Total Bilirubin 0.4, Aspartate Amino Transf (AST/SGOT) 45H, Alanine Aminotransferase (ALT/SGPT) 43, Alkaline Phosphatase 55, Total Protein 5.0L, Albumin 2.3L, Globulin 2.7, Albumin/Globulin Ratio 0.9L Height (Feet): 5 Height (Inches): 7.00 Weight (Pounds): 137 Assessment/Plan Problem List: (1) DKA (diabetic ketoacidoses) ICD Codes: E11.10 - Type 2 diabetes mellitus with ketoacidosis without coma SNOMED: 572688372, 88606803 (2) Hyperglycemia ICD Codes: R73.9 - Hyperglycemia, unspecified SNOMED: 37979273 (3) JEREMY (acute kidney injury) ICD Codes: N17.9 - Acute kidney failure, unspecified SNOMED: 16682198, 6599882 (4) Elevated d-dimer ICD Codes: R79.89 - Other specified abnormal findings of blood chemistry SNOMED: 621636817 (5) Respiratory failure ICD Codes: J96.90 - Respiratory failure, unspecified, unspecified whether with hypoxia or hypercapnia SNOMED: 920740446 (6) Hypoxia ICD Codes: R09.02 - Hypoxemia SNOMED: 686651661 Status: progressing Assessment/Plan: lyte abnormality improved sugar is improved s/p DKA afebrile no sob no n/v/d Jesús Noble MD May 02, 2020 21:20
[2020-05-03] VITALS: BP 108/70
--- NOTE | 2020-05-03 00:05 | NUR ---
NURSE NOTES: Received pt and report from PATIENCE Cristobal. Observed pt resting in bed with both eyes closed; arousable to voice. Pt is A/Ox4; Lao speaking. Pt is able to make needs known. night monitor is in placed; pt is NSR (66 bpm). IV site intact, asymptomatic and patent; running NS w/KCL 20 mEq @ 100ml/hr. Call light and bedside table is within reach. No signs/symptoms of acute distress noted. Will continue plan of care. Addendum: 05/03/20 at 0007 by Maureen Tolbert Mai, RN Received pt 05/02/20 at 1930.
[2020-05-03] MEDS: Sodium Citrate 30ml ORAL SCH ×4 (00:25→17:19)
--- NOTE | 2020-05-03 01:57 | NUR ---
NURSE NOTES: Observed pt asleep in bed. No acute distress noted. Will continue plan of care.
[2020-05-03] MEDS: NS w/KCl 20mEq 1000ml 1,000 ML IV SCH ×2 (03:35→14:48)
[2020-05-03 04:00] VITALS: BP 105/71
[2020-05-03] MEDS: NovoLOG Insulin Flexpen SUBQ SCH ×7 (05:59→20:59)
--- NOTE | 2020-05-03 07:26 | NUR ---
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 No complaint of CP or abdominal pain. No signs/symptoms of acute distress of SOB. Patient Status: Stable Diet: CCHO (M) Pending Orders: N Pending Results/Labs: AM Labs Pending MD notification: N Latest Vital Signs: Temperature 98.2 , Pulse 68 , B/P 105 /71 , Respiratory Rate 19 , O2 SAT 99 , Nasal Cannula, O2 Flow Rate 1.0 . EKG Rhythm: SR w/BBB Rhythm change?: N Latest Lewis Fall Score: 35 Fall Risk: Medium Risk Safety Measures: Call light Within Reach, Bed Alarm Zone 1, Side Rails Side Rails x2, Bed position Low and Locked. Fall Precautions: Patient Fall Education Report given to PATIENCE Michael.
--- NOTE | 2020-05-03 07:30 | NUR ---
NURSE NOTES: Patient seen in bed in semi fowlers position with no acute signs of distress and no complaints of pain. Patient is on room air with O2 sat within normal limits.Patient has two IV sites one is R hand 22G that is clean, patent intact and running 1/2NS with 20Meq KCL at 100cc/hr. The second IV site is L wrist 20 G that is clean, patent and intact. The patients bed is in lowest position, locked, side rails x2 and call light within reach.
[2020-05-03 08:00] VITALS: BP 103/61
--- NOTE | 2020-05-03 08:26 | General Progress Note ---
Subjective ROS Limited/Unobtainable: No Allergies: Coded Allergies: No Known Allergies (Unverified , 04/28/20) Objective Last 24 Hour Vital Signs Date Time Temp Pulse Resp B/P (MAP) Pulse Ox O2 Delivery O2 Flow Rate FiO2 05/03/20 04:00 98.2 68 19 105/71 (82) 99 05/03/20 04:00 66 05/03/20 00:00 98.4 71 17 108/70 (83) 98 05/03/20 00:00 64 05/02/20 21:00 Room Air 05/02/20 20:21 98 Room Air 21 05/02/20 20:00 98.8 67 17 106/66 (79) 99 05/02/20 20:00 64 05/02/20 16:00 63 05/02/20 16:00 98.1 93 19 109/72 (84) 99 05/02/20 12:00 98.8 81 19 104/71 (82) 100 05/02/20 12:00 69 05/02/20 09:00 Room Air Intake and Output 05/02/20 05/03/20 19:00 07:00 Intake Total 220 ml 1650 ml Balance 220 ml 1650 ml Intake Oral 120 ml 650 ml IV Total 100 ml 1000 ml # Voids 4 Height (Feet): 5 Height (Inches): 7.00 Weight (Pounds): 137 General Appearance: no apparent distress EENT: PERRL/EOMI Neck: normal alignment Cardiovascular: normal rate Respiratory/Chest: decreased breath sounds Abdomen: hypoactive bowel sounds Extremities: non-tender Assessment/Plan Status: progressing Assessment/Plan: Assessment/Plan Status: progressing Assessment/Plan: Assessment - DKA - abnormal LFT - likely fatty liver - hypokalemia - hypomagensemia Recommendations - po as tolerated - follow labs and exam - replace lytes PRN - f/u hepatitis serologies Darryl Franklin MD May 03, 2020 08:26
[2020-05-03] MEDS: Enoxaparin 40mg Inj SUBQ SCH (08:43)
--- NOTE | 2020-05-03 09:10 | Hematology/Onc Progress Note ---
Assessment/Plan Assessment/Plan Assessment and Recs # Elevated ddimer --> r/o hypercoag disorder --> imaging has been noted, duplex neg --> ddimer 1.28-->1.88 -> anticoagulation started --> does not need full dose unless VTE is noted # Elevated WBC count --> due to dka likely --> meds noted, on ceftriaxone # Anemia of chronic disease --> hemoconcentrated initially --> hgb 12 # DKA (diabetic ketoacidoses) --> per endo --> Iss, acchechecks # JEREMY (acute kidney injury) --> ivfs and lyete management with renal # Dvt ppx lovenox sq Appreciate consultation and dw Rn Subjective Allergies: Coded Allergies: No Known Allergies (Unverified , 04/28/20) Subjective 05/03: VSS no acute events. Objective Objective Current Medications Medications (Trade) Dose Ordered Sig/Jazzmine Route PRN Reason Start Time Stop Time Status Last Admin Dose Admin Atorvastatin Calcium (Lipitor) 20 mg BEDTIME ORAL 04/29/20 21:00 07/28/20 20:59 05/02/20 21:11 Ceftriaxone Sodium 1 gm/ Sodium Chloride 55 ml @ 110 mls/hr Q24H IVPB 04/30/20 11:00 05/06/20 10:59 05/02/20 11:14 Clonidine HCl (Catapres Tab) 0.1 mg Q2H PRN ORAL SBP above 170 04/28/20 23:15 07/27/20 23:14 Dextrose (Dextrose 50%) 25 ml Q30M PRN IV Hypoglycemia 05/01/20 15:30 07/30/20 15:29 Dextrose (Dextrose 50%) 50 ml Q30M PRN IV Hypoglycemia 05/01/20 15:30 07/30/20 15:29 Enoxaparin Sodium (Lovenox) 40 mg DAILY SUBQ 04/29/20 09:00 07/28/20 08:59 05/03/20 08:43 Hydralazine HCl (Apresoline) 25 mg Q4H PRN ORAL bp over 160 syst 05/01/20 08:45 07/30/20 08:44 Insulin Aspart (NovoLOG) BEFORE MEALS AND HS SUBQ 05/01/20 16:30 07/30/20 16:29 05/03/20 05:59 Insulin Aspart (NovoLOG) 4 units NOVOTIAC SUBQ 05/02/20 11:50 07/30/20 16:49 05/03/20 06:00 Insulin Detemir (Levemir) 12 units BEDTIME SUBQ 05/02/20 21:00 07/30/20 20:59 05/02/20 21:10 Pantoprazole (Protonix) 40 mg EVERY 12 HOURS ORAL 05/01/20 09:00 05/31/20 08:59 05/03/20 08:40 Potassium Chloride/Sodium Chloride 1,000 ml @ 100 mls/hr Q10H IV 04/28/20 23:45 05/28/20 23:44 05/03/20 03:35 Potassium Chloride (K-Dur) 40 meq TWICE A DAY ORAL 05/01/20 09:00 07/30/20 08:59 05/03/20 08:41 Sodium Citrate (Bicitra) 30 ml EVERY 6 HOURS ORAL 04/30/20 12:00 05/30/20 11:59 05/03/20 05:58 Last 24 Hour Vital Signs Date Time Temp Pulse Resp B/P (MAP) Pulse Ox O2 Delivery O2 Flow Rate FiO2 05/03/20 04:00 98.2 68 19 105/71 (82) 99 05/03/20 04:00 66 05/03/20 00:00 98.4 71 17 108/70 (83) 98 05/03/20 00:00 64 05/02/20 21:00 Room Air 05/02/20 20:21 98 Room Air 21 05/02/20 20:00 98.8 67 17 106/66 (79) 99 05/02/20 20:00 64 05/02/20 16:00 63 05/02/20 16:00 98.1 93 19 109/72 (84) 99 05/02/20 12:00 98.8 81 19 104/71 (82) 100 05/02/20 12:00 69 05/02/20 09:00 Room Air 05/02/20 08:00 69 05/02/20 08:00 98.7 84 18 102/62 (75) 100 05/02/20 07:00 100 Room Air 21 05/02/20 03:56 98.2 73 18 110/63 (79) 100 05/02/20 03:38 64 3/5/21 00:00 63 05/01/20 23:56 97.9 68 18 99/63 (75) 100 05/01/20 22:13 68 05/01/20 21:00 65 17 106/67 (80) 99 05/01/20 20:30 69 17 101/59 (73) 98 05/01/20 20:00 Room Air 05/01/20 20:00 78 05/01/20 20:00 71 18 95/55 (68) 99 05/01/20 19:30 97.8 71 19 96/59 (71) 99 05/01/20 19:00 71 18 103/59 (74) 98 05/01/20 18:00 75 18 99/61 (74) 98 05/01/20 17:00 86 15 112/70 (84) 99 05/01/20 16:05 Room Air 05/01/20 16:00 73 05/01/20 16:00 98.0 70 18 104/64 (77) 99 05/01/20 15:00 70 17 101/86 (91) 99 05/01/20 14:00 70 17 105/66 (79) 99 05/01/20 13:00 67 17 111/72 (85) 100 05/01/20 12:00 98.0 90 18 123/83 (96) 97 05/01/20 12:00 Room Air 05/01/20 12:00 84 05/01/20 11:00 74 17 100/63 (75) 100 05/01/20 10:00 73 17 97/68 (78) 100 Intake and Output 05/02/20 05/03/20 19:00 07:00 Intake Total 220 ml 1650 ml Balance 220 ml 1650 ml Intake Oral 120 ml 650 ml IV Total 100 ml 1000 ml # Voids 4 Labs Test 04/30/20 10:00 04/30/20 20:25 05/01/20 04:30 05/02/20 05:19 Urine Color Pale yellow Urine Appearance Slightly cloudy Urine pH 5 (4.5-8.0) Urine Specific [place] 1.015 (1.005-1.035) Urine Protein Negative (NEGATIVE) Urine Glucose (UA) 4+ (NEGATIVE) Urine Ketones 3+ (NEGATIVE) Urine Blood Negative (NEGATIVE) Urine Nitrite Negative (NEGATIVE) Urine Bilirubin Negative (NEGATIVE) Urine Urobilinogen Normal MG/DL (0.0-1.0) Urine Leukocyte Esterase 2+ (NEGATIVE) Urine RBC 0-2 /HPF (0 - 0) Urine WBC 15-20 /HPF (0 - 0) Urine Squamous Epithelial Cells Few /LPF (NONE/OCC) Urine Bacteria Moderate /HPF (NONE) Urine Yeast Moderate /HPF (NONE) Urine Opiates Screen Negative (NEGATIVE) Urine Barbiturates Screen Negative (NEGATIVE) Phencyclidine (PCP) Screen Negative (NEGATIVE) Urine Amphetamines Screen Negative (NEGATIVE) Urine Benzodiazepines Screen Negative (NEGATIVE) Urine Cocaine Screen Negative (NEGATIVE) Urine Marijuana (THC) Screen Negative (NEGATIVE) Sodium Level 140 MMOL/L (136-145) 141 MMOL/L (136-145) 145 MMOL/L (136-145) Potassium Level 3.1 MMOL/L (3.5-5.1) 2.8 MMOL/L (3.5-5.1) 3.4 MMOL/L (3.5-5.1) Chloride Level 109 MMOL/L (98-107) 109 MMOL/L (98-107) 112 MMOL/L (98-107) Carbon Dioxide Level 22 MMOL/L (21-32) 20 MMOL/L (21-32) 28 MMOL/L (21-32) Anion Gap 9 mmol/L (5-15) 13 mmol/L (5-15) 5 mmol/L (5-15) Blood Urea Nitrogen 8 mg/dL (7-18) 8 mg/dL (7-18) 9 mg/dL (7-18) Creatinine 0.8 MG/DL (0.55-1.30) 0.6 MG/DL (0.55-1.30) 0.6 MG/DL (0.55-1.30) Estimat Glomerular Filtration Rate > 60 mL/min (>60) > 60 mL/min (>60) > 60 mL/min (>60) Glucose Level 75 MG/DL (74-106) 145 MG/DL (74-106) 75 MG/DL (74-106) Hemoglobin A1c 12.6 % (4.3-6.0) Calcium Level 8.9 MG/DL (8.5-10.1) 8.3 MG/DL (8.5-10.1) 8.8 MG/DL (8.5-10.1) White Blood Count 5.6 K/UL (4.8-10.8) 5.4 K/UL (4.8-10.8) Red Blood Count 3.94 M/UL (4.70-6.10) 4.02 M/UL (4.70-6.10) Hemoglobin 12.6 G/DL (14.2-18.0) 12.8 G/DL (14.2-18.0) Hematocrit 37.5 % (42.0-52.0) 38.3 % (42.0-52.0) Mean Corpuscular Volume 95 FL (80-99) 95 FL (80-99) Mean Corpuscular Hemoglobin 32.0 PG (27.0-31.0) 31.9 PG (27.0-31.0) Mean Corpuscular Hemoglobin Concent 33.7 G/DL (32.0-36.0) 33.5 G/DL (32.0-36.0) Red Cell Distribution Width 11.8 % (11.6-14.8) 11.5 % (11.6-14.8) Platelet Count 161 K/UL (150-450) 144 K/UL (150-450) Mean Platelet Volume 7.4 FL (6.5-10.1) 7.6 FL (6.5-10.1) Neutrophils (%) (Auto) 58.9 % (45.0-75.0) 56.0 % (45.0-75.0) Lymphocytes (%) (Auto) 28.8 % (20.0-45.0) 33.4 % (20.0-45.0) Monocytes (%) (Auto) 9.4 % (1.0-10.0) 7.8 % (1.0-10.0) Eosinophils (%) (Auto) 1.6 % (0.0-3.0) 1.1 % (0.0-3.0) Basophils (%) (Auto) 1.3 % (0.0-2.0) 1.7 % (0.0-2.0) Lactic Acid Level 1.00 mmol/L (0.4-2.0) Phosphorus Level 2.7 MG/DL (2.5-4.9) 3.3 MG/DL (2.5-4.9) Magnesium Level 1.8 MG/DL (1.8-2.4) 1.7 MG/DL (1.8-2.4) Total Bilirubin 0.3 MG/DL (0.2-1.0) 0.4 MG/DL (0.2-1.0) Aspartate Amino Transf (AST/SGOT) 60 U/L (15-37) 45 U/L (15-37) Alanine Aminotransferase (ALT/SGPT) 42 U/L (12-78) 43 U/L (12-78) Alkaline Phosphatase 61 U/L (46-116) 55 U/L (46-116) Lactate Dehydrogenase 140 U/L (81-234) C-Reactive Protein, Quantitative 2.3 mg/dL (0.00-0.90) Pro-B-Type Natriuretic Peptide 110 pg/mL (0-125) Total Protein 5.0 G/DL (6.4-8.2) 5.0 G/DL (6.4-8.2) Albumin 2.2 G/DL (3.4-5.0) 2.3 G/DL (3.4-5.0) Globulin 2.8 g/dL 2.7 g/dL Albumin/Globulin Ratio 0.8 (1.0-2.7) 0.9 (1.0-2.7) Height (Feet): 5 Height (Inches): 7.00 Weight (Pounds): 137 Objective Pe General: Awake and alert, appears uncomfortable HEENT: NC/AT. EOMI. Cardiovascular: Tachycardic Resp: 10 L nonrebreather. Increased work of breathing with substernal retractions ++ Abdomen: Abdomen is soft, nondistended. Nontender Skin: Intact. No abrasions, laceration or rash over the exposed skin MSK: Normal tone and bulk. Moving all extremities. No obvious deformity. Neuro: Awake and alert. Mentating appropriately. Carol Coleman NP May 03, 2020 09:10
[2020-05-03] MEDS ORDERED: Tubing IV Secondary IV ONE (10:04)
[2020-05-03] MEDS ORDERED: NS 275ml ONE (10:04)
[2020-05-03] MEDS: cefTRIAXone 1 GM in NS 55 ML IVPB SCH (11:43)
[2020-05-03 12:00] VITALS: BP 104/63
--- NOTE | 2020-05-03 12:57 | Infectious Diseases Prog Note ---
Assessment/Plan Assessment/Plan IMPRESSION: Sepsis versus systemic inflammatory response syndrome Strep group B UTI Pneumonia, Diabetic ketoacidosis, Acute renal failure,resolved RECOMMENDATION: Continue ceftriaxone X 1 day Subjective ROS Limited/Unobtainable: No Constitutional: Reports: no symptoms Respiratory: Reports: no symptoms Gastrointestinal/Abdominal: Reports: no symptoms Genitourinary: Reports: no symptoms Allergies: Coded Allergies: No Known Allergies (Unverified , 04/28/20) Objective Last 24 Hour Vital Signs Date Time Temp Pulse Resp B/P (MAP) Pulse Ox O2 Delivery O2 Flow Rate FiO2 05/03/20 12:00 96.8 67 17 104/63 (77) 96 05/03/20 12:00 65 05/03/20 09:00 Room Air 05/03/20 08:00 67 05/03/20 08:00 98.1 93 20 103/61 (75) 96 05/03/20 04:00 98.2 68 19 105/71 (82) 99 05/03/20 04:00 66 05/03/20 00:00 98.4 71 17 108/70 (83) 98 05/03/20 00:00 64 05/02/20 21:00 Room Air 05/02/20 20:21 98 Room Air 21 05/02/20 20:00 98.8 67 17 106/66 (79) 99 05/02/20 20:00 64 05/02/20 16:00 63 05/02/20 16:00 98.1 93 19 109/72 (84) 99 Height (Feet): 5 Height (Inches): 7.00 Weight (Pounds): 137 General Appearance: no acute distress HEENT: mucous membranes moist Respiratory/Chest: lungs clear Cardiovascular: normal rate Abdomen: soft, non tender Extremities: no edema Neurologic/Psychiatric: alert, responsive Current Medications Medications (Trade) Dose Ordered Sig/Jazzmine Route PRN Reason Start Time Stop Time Status Last Admin Dose Admin Atorvastatin Calcium (Lipitor) 20 mg BEDTIME ORAL 04/29/20 21:00 07/28/20 20:59 05/02/20 21:11 Ceftriaxone Sodium 1 gm/ Sodium Chloride 55 ml @ 110 mls/hr Q24H IVPB 04/30/20 11:00 05/06/20 10:59 05/03/20 11:43 Clonidine HCl (Catapres Tab) 0.1 mg Q2H PRN ORAL SBP above 170 04/28/20 23:15 07/27/20 23:14 Dextrose (Dextrose 50%) 25 ml Q30M PRN IV Hypoglycemia 05/01/20 15:30 07/30/20 15:29 Dextrose (Dextrose 50%) 50 ml Q30M PRN IV Hypoglycemia 05/01/20 15:30 07/30/20 15:29 Enoxaparin Sodium (Lovenox) 40 mg DAILY SUBQ 04/29/20 09:00 07/28/20 08:59 05/03/20 08:43 Hydralazine HCl (Apresoline) 25 mg Q4H PRN ORAL bp over 160 syst 05/01/20 08:45 07/30/20 08:44 Insulin Aspart (NovoLOG) BEFORE MEALS AND HS SUBQ 05/01/20 16:30 07/30/20 16:29 05/03/20 12:19 Insulin Aspart (NovoLOG) 4 units NOVOTIAC SUBQ 05/02/20 11:50 07/30/20 16:49 05/03/20 12:19 Insulin Detemir (Levemir) 12 units BEDTIME SUBQ 05/02/20 21:00 07/30/20 20:59 05/02/20 21:10 Pantoprazole (Protonix) 40 mg EVERY 12 HOURS ORAL 05/01/20 09:00 05/31/20 08:59 05/03/20 08:40 Potassium Chloride/Sodium Chloride 1,000 ml @ 100 mls/hr Q10H IV 04/28/20 23:45 05/28/20 23:44 05/03/20 03:35 Potassium Chloride (K-Dur) 40 meq TWICE A DAY ORAL 05/01/20 09:00 07/30/20 08:59 05/03/20 08:41 Sodium Citrate (Bicitra) 30 ml EVERY 6 HOURS ORAL 04/30/20 12:00 05/30/20 11:59 05/03/20 11:43 Sebas Posada MD May 03, 2020 12:57
--- NOTE | 2020-05-03 13:25 | Cardiac Electrophysiology PN ---
Assessment/Plan Assessment/Plan 1. Tachycardia due to diabetic ketoacidosis. EF 65%. On 03/01 NS iv fluid 2. 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 No syncope or CHB 3. Severe hypokalemia. Potassium replaced. 4. Hyperlipidemia. The LDL goal is less than 70. Now on Lipitor. 5. S/P DKA, now off insulin drip DW RN Subjective Subjective On RA in NAD. Alert with no CP or SOB. In SR on 03/01 NS at 100 cc/hr Objective Last 24 Hour Vital Signs Date Time Temp Pulse Resp B/P (MAP) Pulse Ox O2 Delivery O2 Flow Rate FiO2 05/03/20 12:00 96.8 67 17 104/63 (77) 96 05/03/20 12:00 65 05/03/20 09:00 Room Air 05/03/20 08:00 67 05/03/20 08:00 98.1 93 20 103/61 (75) 96 05/03/20 04:00 98.2 68 19 105/71 (82) 99 05/03/20 04:00 66 05/03/20 00:00 98.4 71 17 108/70 (83) 98 05/03/20 00:00 64 05/02/20 21:00 Room Air 05/02/20 20:21 98 Room Air 21 05/02/20 20:00 98.8 67 17 106/66 (79) 99 05/02/20 20:00 64 05/02/20 16:00 63 05/02/20 16:00 98.1 93 19 109/72 (84) 99 Intake and Output 05/02/20 05/03/20 19:00 07:00 Intake Total 220 ml 1650 ml Balance 220 ml 1650 ml Intake Oral 120 ml 650 ml IV Total 100 ml 1000 ml # Voids 4 Objective HEAD AND NECK: No JVD. LUNGS: Clear. CARDIOVASCULAR: Regular S1 and S2 with no gallop. ABDOMEN: Soft. EXTREMITIES: No pitting edema. Jordan Ordonez MD May 03, 2020 13:25
--- NOTE | 2020-05-03 14:24 | Nephrology Progress Note ---
Assessment/Plan Problem List: (1) JEREMY (acute kidney injury) (2) DKA (diabetic ketoacidoses) (3) Hyperglycemia (4) Elevated d-dimer (5) Hypoxia Assessment 49-year-old male admitted with DKA Severe electrolyte abnormalities Acute renal failure Leukocytosis, underlying sepsis Hemoconcentration Tachycardia Cardiac conduction defect in the form of bifascicular block with right bundle branch block and left posterior fascicular block Hyperlipemia Plan May 03: No labs drawn today. Will check lab tomorrow. Stable from renal standpoint of view. Medication list reviewed. May 02: Low magnesium and low phosphorus addressed. Renal parameters within normal limit. Medication list reviewed. Continue per consultants. May 01: Labs reviewed. Low potassium addressed. BP medication adjusted. Continue per current management. April 30: UA indicative of UTI. Urine tox screen negative. Low magnesium and low potassium addressed. Continue per consultants. Previously: Hydrate Blood sugar control To correct low phosphorus low potassium and other electrolytes abnormalities as needed Per orders Subjective ROS Limited/Unobtainable: No Constitutional: Reports: malaise Objective Objective Last 24 Hour Vital Signs Date Time Temp Pulse Resp B/P (MAP) Pulse Ox O2 Delivery O2 Flow Rate FiO2 05/03/20 12:00 96.8 67 17 104/63 (77) 96 05/03/20 12:00 65 05/03/20 09:00 Room Air 05/03/20 08:00 67 05/03/20 08:00 98.1 93 20 103/61 (75) 96 05/03/20 04:00 98.2 68 19 105/71 (82) 99 05/03/20 04:00 66 05/03/20 00:00 98.4 71 17 108/70 (83) 98 05/03/20 00:00 64 05/02/20 21:00 Room Air 05/02/20 20:21 98 Room Air 21 05/02/20 20:00 98.8 67 17 106/66 (79) 99 05/02/20 20:00 64 05/02/20 16:00 63 05/02/20 16:00 98.1 93 19 109/72 (84) 99 Intake and Output 05/02/20 05/03/20 19:00 07:00 Intake Total 220 ml 1700 ml Balance 220 ml 1700 ml Intake Oral 120 ml 650 ml IV Total 100 ml 1050 ml # Voids 4 Current Medications Medications (Trade) Dose Ordered Sig/Jazzmine Route PRN Reason Start Time Stop Time Status Last Admin Dose Admin Atorvastatin Calcium (Lipitor) 20 mg BEDTIME ORAL 04/29/20 21:00 07/28/20 20:59 05/02/20 21:11 Ceftriaxone Sodium 1 gm/ Sodium Chloride 55 ml @ 110 mls/hr Q24H IVPB 04/30/20 11:00 05/06/20 10:59 05/03/20 11:43 Clonidine HCl (Catapres Tab) 0.1 mg Q2H PRN ORAL SBP above 170 04/28/20 23:15 07/27/20 23:14 Dextrose (Dextrose 50%) 25 ml Q30M PRN IV Hypoglycemia 05/01/20 15:30 07/30/20 15:29 Dextrose (Dextrose 50%) 50 ml Q30M PRN IV Hypoglycemia 05/01/20 15:30 07/30/20 15:29 Enoxaparin Sodium (Lovenox) 40 mg DAILY SUBQ 04/29/20 09:00 07/28/20 08:59 05/03/20 08:43 Hydralazine HCl (Apresoline) 25 mg Q4H PRN ORAL bp over 160 syst 05/01/20 08:45 07/30/20 08:44 Insulin Aspart (NovoLOG) BEFORE MEALS AND HS SUBQ 05/01/20 16:30 07/30/20 16:29 05/03/20 12:19 Insulin Aspart (NovoLOG) 4 units NOVOTIAC SUBQ 05/02/20 11:50 07/30/20 16:49 05/03/20 12:19 Insulin Detemir (Levemir) 12 units BEDTIME SUBQ 05/02/20 21:00 07/30/20 20:59 05/02/20 21:10 Pantoprazole (Protonix) 40 mg EVERY 12 HOURS ORAL 05/01/20 09:00 05/31/20 08:59 05/03/20 08:40 Potassium Chloride/Sodium Chloride 1,000 ml @ 100 mls/hr Q10H IV 04/28/20 23:45 05/28/20 23:44 05/03/20 03:35 Potassium Chloride (K-Dur) 40 meq TWICE A DAY ORAL 05/01/20 09:00 07/30/20 08:59 05/03/20 08:41 Sodium Citrate (Bicitra) 30 ml EVERY 6 HOURS ORAL 04/30/20 12:00 05/30/20 11:59 05/03/20 11:43 No labs drawn today Height (Feet): 5 Height (Inches): 7.00 Weight (Pounds): 137 General Appearance: no apparent distress Cardiovascular: normal rate Respiratory/Chest: decreased breath sounds Abdomen: distended Calos Kingsley MD May 03, 2020 14:24
[2020-05-03 16:00] VITALS: BP 102/67
--- NOTE | 2020-05-03 18:23 | NUR ---
NURSE HAND-OFF REPORT: Important Events on Shift:[Insulin, BM, ABX, hypokalemia] Patient Status: [Full code] Diet: [CCHO medium] Pending Orders: [N/A] Pending Results/Labs:[N/A] Pending MD notification:[N/A] Latest Vital Signs: Temperature 96.6 , Pulse 64 , B/P 102 /67 , Respiratory Rate 19 , O2 SAT 98 , Nasal Cannula, O2 Flow Rate 1.0 . Vital Sign Comment: [] EKG Rhythm: SR w/BBB Rhythm change?: N MD Notified?: - MD Response: Latest Lewis Fall Score: 35 Fall Risk: Medium Risk Safety Measures: Call light Within Reach, Bed Alarm Zone 1, Side Rails Side Rails x2, Bed position Low and Locked. Fall Precautions: Patient Fall Education Report given to [PATIENCE [place]].
--- NOTE | 2020-05-03 19:30 | NUR ---
NURSE NOTES: Received pt and report from PATIENCE Michael. Observed pt resting in bed with both eye open and watching television. Pt is A/Ox4; Chinese speaking. Pt is able to make needs known. laboratory monitor is in placed; pt is NSR (64 bpm). IV site intact, asymptomatic and patent; running NS w/KCL 20 mEq @ 100ml/hr. Pt is on room air; sating at 97%. Call light and bedside table is within reach. No signs/symptoms of SOB or acute distress noted. Will continue plan of care.
[2020-05-03 20:00] VITALS: BP 101/67
[2020-05-03] MEDS: Atorvastatin 20mg tab ORAL SCH (20:55)
[2020-05-03] MEDS: Levemir Flexpen SUBQ SCH (21:00)
--- NOTE | 2020-05-03 21:08 | General Progress Note ---
Subjective ROS Limited/Unobtainable: Yes Allergies: Coded Allergies: No Known Allergies (Unverified , 04/28/20) Objective Last 24 Hour Vital Signs Date Time Temp Pulse Resp B/P (MAP) Pulse Ox O2 Delivery O2 Flow Rate FiO2 05/03/20 20:00 98.2 67 17 101/67 (78) 97 05/03/20 20:00 63 05/03/20 16:00 64 05/03/20 16:00 96.6 76 19 102/67 (79) 98 05/03/20 12:00 96.8 67 17 104/63 (77) 96 05/03/20 12:00 65 05/03/20 09:00 Room Air 05/03/20 08:00 67 05/03/20 08:00 98.1 93 20 103/61 (75) 96 05/03/20 04:00 98.2 68 19 105/71 (82) 99 05/03/20 04:00 66 05/03/20 00:00 98.4 71 17 108/70 (83) 98 05/03/20 00:00 64 Intake and Output 05/02/20 05/03/20 19:00 07:00 Intake Total 220 ml 1700 ml Balance 220 ml 1700 ml Intake Oral 120 ml 650 ml IV Total 100 ml 1050 ml # Voids 4 Height (Feet): 5 Height (Inches): 7.00 Weight (Pounds): 137 Assessment/Plan Problem List: (1) DKA (diabetic ketoacidoses) ICD Codes: E11.10 - Type 2 diabetes mellitus with ketoacidosis without coma SNOMED: 747303865, 58841210 (2) Hyperglycemia ICD Codes: R73.9 - Hyperglycemia, unspecified SNOMED: 19798791 (3) JEREMY (acute kidney injury) ICD Codes: N17.9 - Acute kidney failure, unspecified SNOMED: 49395975, 6035115 (4) Elevated d-dimer ICD Codes: R79.89 - Other specified abnormal findings of blood chemistry SNOMED: 211012158 (5) Respiratory failure ICD Codes: J96.90 - Respiratory failure, unspecified, unspecified whether with hypoxia or hypercapnia SNOMED: 388500883 (6) Hypoxia ICD Codes: R09.02 - Hypoxemia SNOMED: 202208693 Status: progressing Assessment/Plan: low k dc planning sugar is better reviewed chart and labs s/p DKA Jesús Noble MD May 03, 2020 21:08
--- NOTE | 2020-05-03 22:22 | NUR ---
NURSE NOTES: Dr. Marie saw pt and gave orders to change insulin scales and added Metformin to pt's med list. Will note and carry out. Addendum: 05/03/20 at 2238 by Maureen Tolbert Mai, RN Insulin dosages*
[2020-05-04] VITALS: BP 104/69
[2020-05-04] MEDS: Sodium Citrate 30ml ORAL SCH ×4 (00:28→17:02)
[2020-05-04] MEDS: NS w/KCl 20mEq 1000ml 1,000 ML IV SCH ×3 (00:29→20:56)
--- NOTE | 2020-05-04 02:19 | NUR ---
NURSE NOTES: Observed pt asleep in bed. Noticed pt have finished 100% of snack at bedside. No acute distress noted.
[2020-05-04 04:00] VITALS: BP 106/65
[2020-05-04] MEDS: NovoLOG Insulin Flexpen SUBQ SCH ×7 (06:05→21:00)
--- NOTE | 2020-05-04 06:44 | Consultation ---
DATE OF CONSULTATION: 05/03/2020 ENDOCRINOLOGY CONSULTATION Covering for Dr. Ze Dutton. CONSULTING PHYSICIAN: Marvin Marie M.D. REFERRING PHYSICIAN: Jesús Noble M.D. REASON FOR CONSULTATION: I was asked to see this 50-year-old male by Dr. Jesús Noble in endocrinology consultation for management of type 2 diabetes mellitus, out of control. The patient hypoxemia, respiratory failure, . FAMILY HISTORY: Unremarkable. PERSONAL HISTORY: Unremarkable. REVIEW OF SYSTEMS: Unremarkable. PHYSICAL EXAMINATION: GENERAL: The patient is in no acute distress. VITAL SIGNS: Blood pressure is , pulse 68, respirations . HEAD AND NECK: Unremarkable. LUNGS: Clear. HEART: Regular. ABDOMEN: Soft. Bowel sounds normal. EXTREMITIES: No edema. NEUROLOGICAL: Cranial nerves II through XII are grossly intact. Toes are downgoing to plantar stimulation. LABORATORY DATA: and hemoglobin A1c 9.7 . ASSESSMENT: Diabetes mellitus type 2, out of control. . Marvin Marie M.D. DR: ESTEBAN JOB#: [id number] CC:
--- NOTE | 2020-05-04 07:18 | NUR ---
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 No complaint of CP or SOB. Patient Status: Stable Diet: CCHO (M) Pending Orders: N Pending Results/Labs: AM labs Pending MD notification: N Latest Vital Signs: Temperature 98.1 , Pulse 55 , B/P 106 /65 , Respiratory Rate 17 , O2 SAT 98 , Nasal Cannula, O2 Flow Rate 1.0 . EKG Rhythm: SB w/BBB Rhythm change?: N Latest Lewis Fall Score: 35 Fall Risk: Medium Risk Safety Measures: Call light Within Reach, Bed Alarm Zone 1, Side Rails Side Rails x2, Bed position Low and Locked. Fall Precautions: Patient Fall Education Report given to PATIENCE [place].
--- NOTE | 2020-05-04 07:19 | NUR ---
RD ASSESSMENT & RECOMMENDATIONS SEE CARE ACTIVITY FOR COMPLETE ASSESSMENT DAILY ESTIMATED NEEDS: Needs based on DKA/ 62kg 25-30 kcals/kg 2561-1028 total kcals 1-1.5 g protein/kg 62-93 g total protein 25-30 mL/kg 7557-6415 total fluid mLs NUTRITION DIAGNOSIS: Altered nutrition related lab values R/T DKA as evidenced by elev A1C 12.6, BG 672* upon adm-> now improved, U glu 4+ upon adm, elev anion gap upon adm (35-> now wnl). CURRENT DIET:CCHO MED PO DIET RECOMMENDATIONS: Maintain CCHO MED diet ADDITIONAL RECOMMENDATIONS: * Standing wt as able for accurate CBW * Monitor BGs closely for hypoglycemia w/ insulin drip * Monitor lytes, replete as needed (low K, mg) * Reattempt diet education * Encourage pm snack to prevent am hypoglycemia
--- NOTE | 2020-05-04 07:25 | NUR ---
NURSE NOTES: Received pt A/A/OX4, latvian speaking and able to understand and follow simple commands in occitan. Observed pt resting in bed having breakfast. Pt is able to make needs known. nuclear monitoring technician is in placed; IV site intact, asymptomatic and patent; running NS w/KCL 20 mEq @ 100ml/hr. Pt is on room air; sating at 97%. Call light and bedside table is within reach. No signs/symptoms of SOB or acute distress noted. Will continue plan of care.
[2020-05-04 07:45] VITALS: BP 108/64
[2020-05-04] MEDS: Enoxaparin 40mg Inj SUBQ SCH (08:03)
[2020-05-04] MEDS: Levemir Flexpen SUBQ SCH ×2 (08:04→17:19)
[2020-05-04] MEDS: metFORMIN 500mg tab ORAL SCH ×2 (08:05→17:02)
[2020-05-04 09:09] LABS: HEMATOCRIT 36.2 % (42.0-52.0); HEMOGLOBIN 12.2 G/DL (14.2-18.0); MEAN CORPUSCULAR VOLUME 97 FL (80-99); PLATELET COUNT 195 K/UL (150-450); RED BLOOD COUNT 3.73 M/UL (4.70-6.10); RED CELL DISTRIBUTION WIDTH 11.4 % (11.6-14.8); WHITE BLOOD COUNT 3.4 K/UL (4.8-10.8)
--- NOTE | 2020-05-04 09:28 | General Progress Note ---
Subjective ROS Limited/Unobtainable: No Allergies: Coded Allergies: No Known Allergies (Unverified , 04/28/20) Objective Last 24 Hour Vital Signs Date Time Temp Pulse Resp B/P (MAP) Pulse Ox O2 Delivery O2 Flow Rate FiO2 05/04/20 08:00 66 05/04/20 07:45 96.7 70 20 108/64 (79) 98 05/04/20 07:45 98 Room Air 21 05/04/20 04:00 98.1 60 17 106/65 (79) 98 05/04/20 04:00 55 05/04/20 00:00 97.7 62 16 104/69 (81) 99 05/04/20 00:00 73 05/03/20 21:00 Room Air 05/03/20 20:00 98.2 67 17 101/67 (78) 97 05/03/20 20:00 63 05/03/20 16:00 64 05/03/20 16:00 96.6 76 19 102/67 (79) 98 05/03/20 12:00 96.8 67 17 104/63 (77) 96 05/03/20 12:00 65 Intake and Output 05/03/20 05/04/20 19:00 07:00 Intake Total 1340 ml 1480 ml Output Total 1200 ml 650 ml Balance 140 ml 830 ml Intake Oral 140 ml 480 ml IV Total 1200 ml 1000 ml Output Urine Total 1200 ml 650 ml # Voids 3 3 Laboratory Tests 05/04/20 08:40: White Blood Count 3.4L, Red Blood Count 3.73L, Hemoglobin 12.2L, Hematocrit 36.2L, Mean Corpuscular Volume 97, Mean Corpuscular Hemoglobin 32.6H, Mean Corpuscular Hemoglobin Concent 33.6, Red Cell Distribution Width 11.4L, Platelet Count 195, Mean Platelet Volume 7.6, Neutrophils (%) (Auto) , Lymphocytes (%) (Auto) , Monocytes (%) (Auto) , Eosinophils (%) (Auto) , Basophils (%) (Auto) , Neutrophils % (Manual) [Pending], Lymphocytes % (Manual) [Pending], Platelet Estimate [Pending], Platelet Morphology [Pending], Sodium Level [Pending], Potassium Level [Pending], Chloride Level [Pending], Carbon Dioxide Level [Pending], Blood Urea Nitrogen [Pending], Creatinine [Pending], Estimat Glomerular Filtration Rate [Pending], Glucose Level [Pending], Calcium Level [Pending], Phosphorus Level [Pending], Magnesium Level [Pending], Total Bilirubin [Pending], Aspartate Amino Transf (AST/SGOT) [Pending], Alanine Aminotransferase (ALT/SGPT) [Pending], Alkaline Phosphatase [Pending], C- Reactive Protein, Quantitative [Pending], Total Protein [Pending], Albumin [Pending], Globulin [Pending] Height (Feet): 5 Height (Inches): 7.00 Weight (Pounds): 137 General Appearance: no apparent distress EENT: normal ENT inspection Neck: supple Cardiovascular: normal rate Respiratory/Chest: decreased breath sounds Abdomen: normal bowel sounds, non tender, soft Extremities: non-tender Assessment/Plan Status: progressing Assessment/Plan: Assessment/Plan Status: progressing Assessment/Plan: Assessment - DKA - abnormal LFT - likely fatty liver - hypokalemia - hypomagensemia Recommendations - po as tolerated - follow labs and exam - replace myrtle PRN - f/u hepatitis serologies Darryl Franklin MD May 04, 2020 09:28
[2020-05-04 09:29] LABS: ALANINE AMINOTRANSFERASE 51 U/L (12-78); ALBUMIN 2.7 G/DL (3.4-5.0); ALBUMIN/GLOBULIN RATIO 0.9 (1.0-2.7); ALKALINE PHOSPHATASE 65 U/L (46-116); ANION GAP 8 mmol/L (5-15); ASPARTATE AMINO TRANSFERASE 53 U/L (15-37); BILIRUBIN,TOTAL 0.3 MG/DL (0.2-1.0); BLOOD UREA NITROGEN 11 mg/dL (7-18); CARBON DIOXIDE 29 MMOL/L (21-32); CHLORIDE 103 MMOL/L (98-107); CREATININE 0.7 MG/DL (0.55-1.30); PHOSPHORUS 4.9 MG/DL (2.5-4.9); POTASSIUM 4.3 MMOL/L (3.5-5.1); SODIUM 140 MMOL/L (136-145)
--- NOTE | 2020-05-04 09:40 | Hematology/Onc Progress Note ---
Assessment/Plan Assessment/Plan Assessment and Recs # Elevated ddimer --> r/o hypercoag disorder --> imaging has been noted, duplex neg --> ddimer 1.28-->1.88 -> anticoagulation started --> does not need full dose unless VTE is noted # Elevated WBC count --> due to dka likely --> meds noted, on ceftriaxone # Anemia of chronic disease --> hemoconcentrated initially --> hgb 12--> # DKA (diabetic ketoacidoses) --> per endo --> Iss, acchechecks # JEREMY (acute kidney injury) --> ivfs and lyete management with renal # Dvt ppx lovenox sq Appreciate consultation and dw Rn Subjective Allergies: Coded Allergies: No Known Allergies (Unverified , 04/28/20) Subjective 05/03: VSS no acute events. 05/04: no bleeding reported. Objective Objective Current Medications Medications (Trade) Dose Ordered Sig/Jazzmine Route PRN Reason Start Time Stop Time Status Last Admin Dose Admin Atorvastatin Calcium (Lipitor) 20 mg BEDTIME ORAL 04/29/20 21:00 07/28/20 20:59 05/03/20 20:55 Ceftriaxone Sodium 1 gm/ Sodium Chloride 55 ml @ 110 mls/hr Q24H IVPB 04/30/20 11:00 05/06/20 10:59 05/03/20 11:43 Clonidine HCl (Catapres Tab) 0.1 mg Q2H PRN ORAL SBP above 170 04/28/20 23:15 07/27/20 23:14 Dextrose (Dextrose 50%) 25 ml Q30M PRN IV Hypoglycemia 05/01/20 15:30 07/30/20 15:29 Dextrose (Dextrose 50%) 50 ml Q30M PRN IV Hypoglycemia 05/01/20 15:30 07/30/20 15:29 Enoxaparin Sodium (Lovenox) 40 mg DAILY SUBQ 04/29/20 09:00 07/28/20 08:59 05/04/20 08:03 Hydralazine HCl (Apresoline) 25 mg Q4H PRN ORAL bp over 160 syst 05/01/20 08:45 07/30/20 08:44 Insulin Aspart (NovoLOG) BEFORE MEALS AND HS SUBQ 05/01/20 16:30 07/30/20 16:29 05/04/20 06:05 Insulin Aspart (NovoLOG) 10 units NOVOTIAC SUBQ 05/04/20 06:30 07/30/20 16:49 Insulin Detemir (Levemir) 15 units BID SUBQ 05/04/20 09:00 07/30/20 20:59 05/04/20 08:04 Metformin HCl (Glucophage) 500 mg BID ORAL 05/04/20 09:00 06/03/20 08:59 05/04/20 08:05 Pantoprazole (Protonix) 40 mg EVERY 12 HOURS ORAL 05/01/20 09:00 05/31/20 08:59 05/04/20 08:02 Potassium Chloride/Sodium Chloride 1,000 ml @ 100 mls/hr Q10H IV 04/28/20 23:45 05/28/20 23:44 05/04/20 08:05 Potassium Chloride (K-Dur) 40 meq TWICE A DAY ORAL 05/01/20 09:00 07/30/20 08:59 05/04/20 08:02 Sodium Citrate (Bicitra) 30 ml EVERY 6 HOURS ORAL 04/30/20 12:00 05/30/20 11:59 05/04/20 06:03 Last 24 Hour Vital Signs Date Time Temp Pulse Resp B/P (MAP) Pulse Ox O2 Delivery O2 Flow Rate FiO2 05/04/20 08:00 66 05/04/20 07:45 96.7 70 20 108/64 (79) 98 05/04/20 07:45 98 Room Air 21 05/04/20 04:00 98.1 60 17 106/65 (79) 98 05/04/20 04:00 55 05/04/20 00:00 97.7 62 16 104/69 (81) 99 05/04/20 00:00 73 05/03/20 21:00 Room Air 05/03/20 20:00 98.2 67 17 101/67 (78) 97 05/03/20 20:00 63 05/03/20 16:00 64 05/03/20 16:00 96.6 76 19 102/67 (79) 98 05/03/20 12:00 96.8 67 17 104/63 (77) 96 05/03/20 12:00 65 05/03/20 09:00 Room Air 05/03/20 08:00 67 05/03/20 08:00 98.1 93 20 103/61 (75) 96 05/03/20 04:00 98.2 68 19 105/71 (82) 99 05/03/20 04:00 66 05/03/20 00:00 98.4 71 17 108/70 (83) 98 05/03/20 00:00 64 05/02/20 21:00 Room Air 05/02/20 20:21 98 Room Air 21 05/02/20 20:00 98.8 67 17 106/66 (79) 99 05/02/20 20:00 64 05/02/20 16:00 63 05/02/20 16:00 98.1 93 19 109/72 (84) 99 05/02/20 12:00 98.8 81 19 104/71 (82) 100 05/02/20 12:00 69 Intake and Output 05/03/20 05/04/20 19:00 07:00 Intake Total 1340 ml 1480 ml Output Total 1200 ml 650 ml Balance 140 ml 830 ml Intake Oral 140 ml 480 ml IV Total 1200 ml 1000 ml Output Urine Total 1200 ml 650 ml # Voids 3 3 Labs Test 05/02/20 05:19 05/04/20 08:40 White Blood Count 5.4 K/UL (4.8-10.8) 3.4 K/UL (4.8-10.8) Red Blood Count 4.02 M/UL (4.70-6.10) 3.73 M/UL (4.70-6.10) Hemoglobin 12.8 G/DL (14.2-18.0) 12.2 G/DL (14.2-18.0) Hematocrit 38.3 % (42.0-52.0) 36.2 % (42.0-52.0) Mean Corpuscular Volume 95 FL (80-99) 97 FL (80-99) Mean Corpuscular Hemoglobin 31.9 PG (27.0-31.0) 32.6 PG (27.0-31.0) Mean Corpuscular Hemoglobin Concent 33.5 G/DL (32.0-36.0) 33.6 G/DL (32.0-36.0) Red Cell Distribution Width 11.5 % (11.6-14.8) 11.4 % (11.6-14.8) Platelet Count 144 K/UL (150-450) 195 K/UL (150-450) Mean Platelet Volume 7.6 FL (6.5-10.1) 7.6 FL (6.5-10.1) Neutrophils (%) (Auto) 56.0 % (45.0-75.0) % (45.0-75.0) Lymphocytes (%) (Auto) 33.4 % (20.0-45.0) % (20.0-45.0) Monocytes (%) (Auto) 7.8 % (1.0-10.0) % (1.0-10.0) Eosinophils (%) (Auto) 1.1 % (0.0-3.0) % (0.0-3.0) Basophils (%) (Auto) 1.7 % (0.0-2.0) % (0.0-2.0) Sodium Level 145 MMOL/L (136-145) 140 MMOL/L (136-145) Potassium Level 3.4 MMOL/L (3.5-5.1) 4.3 MMOL/L (3.5-5.1) Chloride Level 112 MMOL/L (98-107) 103 MMOL/L (98-107) Carbon Dioxide Level 28 MMOL/L (21-32) 29 MMOL/L (21-32) Anion Gap 5 mmol/L (5-15) 8 mmol/L (5-15) Blood Urea Nitrogen 9 mg/dL (7-18) 11 mg/dL (7-18) Creatinine 0.6 MG/DL (0.55-1.30) 0.7 MG/DL (0.55-1.30) Estimat Glomerular Filtration Rate > 60 mL/min (>60) > 60 mL/min (>60) Glucose Level 75 MG/DL (74-106) 280 MG/DL (74-106) Calcium Level 8.8 MG/DL (8.5-10.1) 9.0 MG/DL (8.5-10.1) Phosphorus Level 3.3 MG/DL (2.5-4.9) 4.9 MG/DL (2.5-4.9) Magnesium Level 1.7 MG/DL (1.8-2.4) 1.7 MG/DL (1.8-2.4) Total Bilirubin 0.4 MG/DL (0.2-1.0) 0.3 MG/DL (0.2-1.0) Aspartate Amino Transf (AST/SGOT) 45 U/L (15-37) 53 U/L (15-37) Alanine Aminotransferase (ALT/SGPT) 43 U/L (12-78) 51 U/L (12-78) Alkaline Phosphatase 55 U/L (46-116) 65 U/L (46-116) Total Protein 5.0 G/DL (6.4-8.2) 5.7 G/DL (6.4-8.2) Albumin 2.3 G/DL (3.4-5.0) 2.7 G/DL (3.4-5.0) Globulin 2.7 g/dL 3.0 g/dL Albumin/Globulin Ratio 0.9 (1.0-2.7) 0.9 (1.0-2.7) C-Reactive Protein, Quantitative 0.6 mg/dL (0.00-0.90) Height (Feet): 5 Height (Inches): 7.00 Weight (Pounds): 137 Objective Pe General: Awake and alert, appears uncomfortable HEENT: NC/AT. EOMI. Cardiovascular: Tachycardic Resp: 10 L nonrebreather. Increased work of breathing with substernal retractions ++ Abdomen: Abdomen is soft, nondistended. Nontender Skin: Intact. No abrasions, laceration or rash over the exposed skin MSK: Normal tone and bulk. Moving all extremities. No obvious deformity. Neuro: Awake and alert. Mentating appropriately. Carol Coleman NP May 04, 2020 09:40
--- NOTE | 2020-05-04 10:00 | NUR ---
CASE MANAGEMENT:REVIEW 04/28/20 50 YR OLD MALE PRESENTED TO ER CC: SOB SI: HYPOXIA. RESPIRATORY FAILURE HYPERGLYCEMIA. JEREMY 99.0 118 24 192/101 88% ON RA WBC+18.6 K-2.5 CO2-6 ANION GAP+35 CR+1.8 GLUCOSE+672 IS: PLACED ON 3L/NC IV INSULIN X2 INSULIN GTT IVF NS IV KCL : TO ICU
--- NOTE | 2020-05-04 10:11 | NUR ---
CASE MANAGEMENT:REVIEW : DKA. RESPIRATORY FAILURE 96.7 70 20 108/64 98% ON RA GLUCOSE+280 MAG-1.7 IS: IV ROCEPHIN Q24 IVF+KCL@100/HR LOVENOX SQ QD METFORMIN PO BID LEVEMIR SQ BID NOVOLOG SQ TID SS INSULIN AC+HS K-DUR PO BID PROTONIX PO Q12 : TELEMETRY STATUS DCP: FROM HOME Addendum: 05/04/20 at 1252 by BLANCA ISLAS LVN LVN CORRECTION ABOVE NOTE IS FOR 05/04/20
[2020-05-04] MEDS: cefTRIAXone 1 GM in NS 55 ML IVPB SCH (10:58)
[2020-05-04 12:04] VITALS: BP 114/65
--- NOTE | 2020-05-04 12:52 | NUR ---
CASE MANAGEMENT:REVIEW 05/04/20 SI: DKA. RESPIRATORY FAILURE 96.7 70 20 108/64 98% ON RA GLUCOSE+280 MAG-1.7 IS: IV ROCEPHIN Q24 IVF+KCL@100/HR LOVENOX SQ QD METFORMIN PO BID LEVEMIR SQ BID NOVOLOG SQ TID SS INSULIN AC+HS K-DUR PO BID PROTONIX PO Q12 : TELEMETRY STATUS DCP: FROM HOME
--- NOTE | 2020-05-04 15:48 | General Progress Note ---
Subjective ROS Limited/Unobtainable: Yes Allergies: Coded Allergies: No Known Allergies (Unverified , 04/28/20) Objective Last 24 Hour Vital Signs Date Time Temp Pulse Resp B/P (MAP) Pulse Ox O2 Delivery O2 Flow Rate FiO2 05/04/20 12:04 97.5 81 19 114/65 (81) 99 05/04/20 12:00 59 05/04/20 09:00 Room Air 05/04/20 08:00 66 05/04/20 07:45 96.7 70 20 108/64 (79) 98 05/04/20 07:45 98 Room Air 21 05/04/20 04:00 98.1 60 17 106/65 (79) 98 05/04/20 04:00 55 05/04/20 00:00 97.7 62 16 104/69 (81) 99 05/04/20 00:00 73 05/03/20 21:00 Room Air 05/03/20 20:00 98.2 67 17 101/67 (78) 97 05/03/20 20:00 63 05/03/20 16:00 64 05/03/20 16:00 96.6 76 19 102/67 (79) 98 Intake and Output 05/03/20 05/04/20 19:00 07:00 Intake Total 1340 ml 1480 ml Output Total 1200 ml 650 ml Balance 140 ml 830 ml Intake Oral 140 ml 480 ml IV Total 1200 ml 1000 ml Output Urine Total 1200 ml 650 ml # Voids 3 3 Laboratory Tests 05/04/20 08:40: White Blood Count 3.4L, Red Blood Count 3.73L, Hemoglobin 12.2L, Hematocrit 36.2L, Mean Corpuscular Volume 97, Mean Corpuscular Hemoglobin 32.6H, Mean Corpuscular Hemoglobin Concent 33.6, Red Cell Distribution Width 11.4L, Platelet Count 195, Mean Platelet Volume 7.6, Neutrophils (%) (Auto) , Lymphocytes (%) (Auto) , Monocytes (%) (Auto) , Eosinophils (%) (Auto) , Basophils (%) (Auto) , Differential Total Cells Counted 100, Neutrophils % (Manual) 52, Lymphocytes % (Manual) 42, Monocytes % (Manual) 6, Eosinophils % (Manual) 0, Basophils % (Manual) 0, Band Neutrophils 0, Platelet Estimate Adequate, Platelet Morphology Normal, Red Blood Cell Morphology Normal, Sodium Level 140, Potassium Level 4.3, Chloride Level 103, Carbon Dioxide Level 29, Anion Gap 8, Blood Urea Nitrogen 11, Creatinine 0.7, Estimat Glomerular Filtration Rate > 60, Glucose Level 280H, Calcium Level 9.0, Phosphorus Level 4.9, Magnesium Level 1.7L, Total Bilirubin 0.3, Aspartate Amino Transf (AST/SGOT) 53H, Alanine Aminotransferase (ALT/SGPT) 51, Alkaline Phosphatase 65, C-Reactive Protein, Quantitative 0.6, Total Protein 5.7L, Albumin 2.7L, Globulin 3.0, Albumin/Globulin Ratio 0.9L Height (Feet): 5 Height (Inches): 7.00 Weight (Pounds): 137 Assessment/Plan Problem List: (1) DKA (diabetic ketoacidoses) ICD Codes: E11.10 - Type 2 diabetes mellitus with ketoacidosis without coma SNOMED: 561692738, 79149466 (2) Hyperglycemia ICD Codes: R73.9 - Hyperglycemia, unspecified SNOMED: 01011877 (3) JEREMY (acute kidney injury) ICD Codes: N17.9 - Acute kidney failure, unspecified SNOMED: 21570639, 6224142 (4) Elevated d-dimer ICD Codes: R79.89 - Other specified abnormal findings of blood chemistry SNOMED: 997886684 (5) Respiratory failure ICD Codes: J96.90 - Respiratory failure, unspecified, unspecified whether with hypoxia or hypercapnia SNOMED: 284402997 (6) Hypoxia ICD Codes: R09.02 - Hypoxemia SNOMED: 771859724 Status: progressing Assessment/Plan: dc in am sugar is much better afebrile s/p DKA Jesús Noble MD May 04, 2020 15:48
[2020-05-04 16:00] VITALS: BP 118/67
--- NOTE | 2020-05-04 16:30 | Nephrology Progress Note ---
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 Abnormal electrolytes addressed. Medication list reviewed. Continue per consultants. May 03: No labs drawn today. Will check lab tomorrow. Stable from renal standpoint of view. Medication list reviewed. May 02: Low magnesium and low phosphorus addressed. Renal parameters within normal limit. Medication list reviewed. Continue per consultants. May 01: Labs reviewed. Low potassium addressed. BP medication adjusted. Continue per current management. April 30: UA indicative of UTI. Urine tox screen negative. Low magnesium and low potassium addressed. Continue per consultants. Previously: Hydrate Blood sugar control To correct low phosphorus low potassium and other electrolytes abnormalities as needed Per orders Subjective ROS Limited/Unobtainable: No Constitutional: Reports: malaise Objective Objective Last 24 Hour Vital Signs Date Time Temp Pulse Resp B/P (MAP) Pulse Ox O2 Delivery O2 Flow Rate FiO2 05/04/20 16:00 96.6 93 20 118/67 (84) 96 05/04/20 12:04 97.5 81 19 114/65 (81) 99 05/04/20 12:00 59 05/04/20 09:00 Room Air 05/04/20 08:00 66 05/04/20 07:45 96.7 70 20 108/64 (79) 98 05/04/20 07:45 98 Room Air 21 05/04/20 04:00 98.1 60 17 106/65 (79) 98 05/04/20 04:00 55 05/04/20 00:00 97.7 62 16 104/69 (81) 99 05/04/20 00:00 73 05/03/20 21:00 Room Air 05/03/20 20:00 98.2 67 17 101/67 (78) 97 05/03/20 20:00 63 Intake and Output 05/03/20 05/04/20 19:00 07:00 Intake Total 1340 ml 1480 ml Output Total 1200 ml 650 ml Balance 140 ml 830 ml Intake Oral 140 ml 480 ml IV Total 1200 ml 1000 ml Output Urine Total 1200 ml 650 ml # Voids 3 3 Current Medications Medications (Trade) Dose Ordered Sig/Ajzzmine Route PRN Reason Start Time Stop Time Status Last Admin Dose Admin Atorvastatin Calcium (Lipitor) 20 mg BEDTIME ORAL 04/29/20 21:00 07/28/20 20:59 05/03/20 20:55 Ceftriaxone Sodium 1 gm/ Sodium Chloride 55 ml @ 110 mls/hr Q24H IVPB 04/30/20 11:00 05/06/20 10:59 05/04/20 10:58 Clonidine HCl (Catapres Tab) 0.1 mg Q2H PRN ORAL SBP above 170 04/28/20 23:15 07/27/20 23:14 Dextrose (Dextrose 50%) 25 ml Q30M PRN IV Hypoglycemia 05/01/20 15:30 07/30/20 15:29 Dextrose (Dextrose 50%) 50 ml Q30M PRN IV Hypoglycemia 05/01/20 15:30 07/30/20 15:29 Enoxaparin Sodium (Lovenox) 40 mg DAILY SUBQ 04/29/20 09:00 07/28/20 08:59 05/04/20 08:03 Hydralazine HCl (Apresoline) 25 mg Q4H PRN ORAL bp over 160 syst 05/01/20 08:45 07/30/20 08:44 Insulin Aspart (NovoLOG) BEFORE MEALS AND HS SUBQ 05/01/20 16:30 07/30/20 16:29 05/04/20 11:26 Insulin Aspart (NovoLOG) 10 units NOVOTIAC SUBQ 05/04/20 06:30 07/30/20 16:49 05/04/20 11:25 Insulin Detemir (Levemir) 15 units BID SUBQ 05/04/20 09:00 07/30/20 20:59 05/04/20 08:04 Magnesium Sulfate 100 ml @ 100 mls/hr Q1H IVPB 05/04/20 15:30 05/04/20 17:29 05/04/20 15:56 Metformin HCl (Glucophage) 500 mg BID ORAL 05/04/20 09:00 06/03/20 08:59 05/04/20 08:05 Pantoprazole (Protonix) 40 mg EVERY 12 HOURS ORAL 05/01/20 09:00 05/31/20 08:59 05/04/20 08:02 Potassium Chloride/Sodium Chloride 1,000 ml @ 100 mls/hr Q10H IV 04/28/20 23:45 05/28/20 23:44 05/04/20 08:05 Potassium Chloride (K-Dur) 40 meq TWICE A DAY ORAL 05/01/20 09:00 07/30/20 08:59 05/04/20 08:02 Sodium Citrate (Bicitra) 30 ml EVERY 6 HOURS ORAL 04/30/20 12:00 05/30/20 11:59 05/04/20 11:26 Laboratory Tests 05/04/20 08:40: White Blood Count 3.4L, Red Blood Count 3.73L, Hemoglobin 12.2L, Hematocrit 36.2L, Mean Corpuscular Volume 97, Mean Corpuscular Hemoglobin 32.6H, Mean Corpuscular Hemoglobin Concent 33.6, Red Cell Distribution Width 11.4L, Platelet Count 195, Mean Platelet Volume 7.6, Neutrophils (%) (Auto) , Lymphocytes (%) (Auto) , Monocytes (%) (Auto) , Eosinophils (%) (Auto) , Basophils (%) (Auto) , Differential Total Cells Counted 100, Neutrophils % (Manual) 52, Lymphocytes % (Manual) 42, Monocytes % (Manual) 6, Eosinophils % (Manual) 0, Basophils % (Manual) 0, Band Neutrophils 0, Platelet Estimate Adequate, Platelet Morphology Normal, Red Blood Cell Morphology Normal, Sodium Level 140, Potassium Level 4.3, Chloride Level 103, Carbon Dioxide Level 29, Anion Gap 8, Blood Urea Nitrogen 11, Creatinine 0.7, Estimat Glomerular Filtration Rate > 60, Glucose Level 280H, Calcium Level 9.0, Phosphorus Level 4.9, Magnesium Level 1.7L, Total Bilirubin 0.3, Aspartate Amino Transf (AST/SGOT) 53H, Alanine Aminotransferase (ALT/SGPT) 51, Alkaline Phosphatase 65, C-Reactive Protein, Quantitative 0.6, Total Protein 5.7L, Albumin 2.7L, Globulin 3.0, Albumin/Globulin Ratio 0.9L Height (Feet): 5 Height (Inches): 7.00 Weight (Pounds): 137 General Appearance: no apparent distress Cardiovascular: normal rate Respiratory/Chest: decreased breath sounds Objective No change Calos Kingsley MD May 04, 2020 16:30
--- NOTE | 2020-05-04 18:52 | NUR ---
NURSE HAND-OFF REPORT: Important Events on Shift:[patient is compliant to meds regimen. kept clean and comfortable. no acute cardio-resp distress. magnesium 2gm given for mg 1.7] Patient Status: [fc] Diet: [ccho ] Pending Orders: [] Pending Results/Labs:[] Pending MD notification:[] Latest Vital Signs: Temperature 96.6 , Pulse 60 , B/P 118 /67 , Respiratory Rate 20 , O2 SAT 96 , Nasal Cannula, O2 Flow Rate 1.0 . Vital Sign Comment: [] EKG Rhythm: SR W/BBB Rhythm change?: N MD Notified?: - MD Response: Latest Lewis Fall Score: 35 Fall Risk: Medium Risk Safety Measures: Call light Within Reach, Bed Alarm Zone 1, Side Rails Side Rails x2, Bed position Low and Locked. Fall Precautions: Patient Fall Education Report given to [tiffany].
--- NOTE | 2020-05-04 19:30 | NUR ---
NURSE NOTES: Important Events on Shift: Received report from Lilly Mcgee LVN. Pt awake, alert and oriented x 4. Pt denies pain, no signs of distress noted at this time. Will continue to monitor closely. Will continue plan of care. Patient Status: Diet: Pending Orders: none Pending Results/Labs: none Pending MD notification: none Latest Vital Signs: Temperature 97.2 , Pulse 58 , B/P 103 /69 , Respiratory Rate 18 , O2 SAT 97 , Nasal Cannula, O2 Flow Rate 1.0 . Vital Sign Comment: stable per report EKG Rhythm: SB w/BBBs Rhythm change?: N MD Notified?: - MD Response: Latest Lewis Fall Score: 35 Fall Risk: Medium Risk Safety Measures: Call light Within Reach, Bed Alarm Zone 1, Side Rails Side Rails x2, Bed position Low and Locked. Fall Precautions: Patient Fall Education
[2020-05-04 20:00] VITALS: BP 100/55
[2020-05-04] MEDS: Atorvastatin 20mg tab ORAL SCH (20:56)
[2020-05-05] VITALS: BP 109/71
[2020-05-05 04:00] VITALS: BP 103/69
[2020-05-05] MEDS: NS w/KCl 20mEq 1000ml 1,000 ML IV SCH (05:58)
[2020-05-05] MEDS: NovoLOG Insulin Flexpen SUBQ SCH ×2 (05:58)
[2020-05-05] MEDS: Sodium Citrate 30ml ORAL SCH ×2 (05:59)
--- NOTE | 2020-05-05 06:00 | NUR ---
NURSE HAND-OFF REPORT: Important Events on Shift: None Patient Status: full code Diet: CCHO M Pending Orders: none Pending Results/Labs: none Pending MD notification: none Latest Vital Signs: Temperature 97.2 , Pulse 58 , B/P 103 /69 , Respiratory Rate 18 , O2 SAT 97 , Nasal Cannula, O2 Flow Rate 1.0 . Vital Sign Comment: stable throughout shift EKG Rhythm: SB w/BBBs Rhythm change?: N MD Notified?: - MD Response: Latest Lewis Fall Score: 35 Fall Risk: Medium Risk Safety Measures: Call light Within Reach, Bed Alarm Zone 1, Side Rails Side Rails x2, Bed position Low and Locked. Fall Precautions: Patient Fall Education Report to be given to Ye Dudley RN
--- NOTE | 2020-05-05 06:03 | Hematology/Onc Progress Note ---
Assessment/Plan Assessment/Plan Assessment and Recs # Elevated ddimer --> r/o hypercoag disorder --> imaging has been noted, duplex neg --> ddimer 1.28-->1.88 -> anticoagulation started --> does not need full dose unless VTE is noted # Elevated WBC count --> due to dka likely --> meds noted, on ceftriaxone # Anemia of chronic disease --> hemoconcentrated initially --> hgb 12 # DKA (diabetic ketoacidoses) --> per endo --> Iss, acchechecks # JEREMY (acute kidney injury) --> ivfs and lyete management with renal # Dvt ppx lovenox sq Appreciate consultation and dw Rn Subjective Constitutional: Denies: no symptoms, chills, fever, malaise, weakness, other HEENT: Denies: no symptoms, eye pain, blurred vision, tearing, double vision, ear pain, ear discharge, nose pain, nose congestion, throat pain, throat swelling, mouth pain, mouth swelling, other Cardiovascular: Denies: no symptoms, chest pain, edema, irregular heart rate, lightheadedness, palpitations, syncope, other Respiratory: Denies: no symptoms, cough, shortness of breath, SOB with excertion, SOB at rest, sputum, wheezing, other Gastrointestinal/Abdominal: Denies: no symptoms, abdomen distended, abdominal pain, black stools, tarry stools, blood in stool, constipated, diarrhea, difficu lty swallowing, nausea, poor appetite, poor fluid intake, rectal bleeding, vomiting, other Genitourinary: Denies: no symptoms, burning, discharge, frequency, flank pain, hematuria, incontinence, pain, urgency, other Neurologic/Psychiatric: Denies: no symptoms, anxiety, depressed, emotional problems, headache, numbness, paresthesia, pre-existing deficit, seizure, tingling, tremors, weakness, other Allergies: Coded Allergies: No Known Allergies (Unverified , 04/28/20) Subjective 05/01 labs are noted, no bleeding, meds reviewed 05/02 transferred out of icu to [facility], meds noted, no bleeding, labs pending 05/03: VSS no acute events. 05/04: no bleeding reported. 05/05 complaint, meds given, labs reviewed, ordered cbc Objective Objective Current Medications Medications (Trade) Dose Ordered Sig/Jazzmine Route PRN Reason Start Time Stop Time Status Last Admin Dose Admin Atorvastatin Calcium (Lipitor) 20 mg BEDTIME ORAL 04/29/20 21:00 07/28/20 20:59 05/04/20 20:56 Ceftriaxone Sodium 1 gm/ Sodium Chloride 55 ml @ 110 mls/hr Q24H IVPB 04/30/20 11:00 05/06/20 10:59 05/04/20 10:58 Clonidine HCl (Catapres Tab) 0.1 mg Q2H PRN ORAL SBP above 170 04/28/20 23:15 07/27/20 23:14 Dextrose (Dextrose 50%) 25 ml Q30M PRN IV Hypoglycemia 05/01/20 15:30 07/30/20 15:29 Dextrose (Dextrose 50%) 50 ml Q30M PRN IV Hypoglycemia 05/01/20 15:30 07/30/20 15:29 Enoxaparin Sodium (Lovenox) 40 mg DAILY SUBQ 04/29/20 09:00 07/28/20 08:59 05/04/20 08:03 Hydralazine HCl (Apresoline) 25 mg Q4H PRN ORAL bp over 160 syst 05/01/20 08:45 07/30/20 08:44 Insulin Aspart (NovoLOG) BEFORE MEALS AND HS SUBQ 05/01/20 16:30 07/30/20 16:29 05/04/20 16:44 Insulin Aspart (NovoLOG) 10 units NOVOTIAC SUBQ 05/04/20 06:30 07/30/20 16:49 05/04/20 16:45 Insulin Detemir (Levemir) 15 units BID SUBQ 05/04/20 09:00 07/30/20 20:59 05/04/20 17:19 Metformin HCl (Glucophage) 500 mg BID ORAL 05/04/20 09:00 06/03/20 08:59 05/04/20 17:02 Pantoprazole (Protonix) 40 mg EVERY 12 HOURS ORAL 05/01/20 09:00 05/31/20 08:59 05/04/20 20:57 Potassium Chloride/Sodium Chloride 1,000 ml @ 100 mls/hr Q10H IV 04/28/20 23:45 05/28/20 23:44 05/05/20 05:58 Potassium Chloride (K-Dur) 40 meq TWICE A DAY ORAL 05/01/20 09:00 07/30/20 08:59 05/04/20 17:02 Sodium Citrate (Bicitra) 30 ml EVERY 6 HOURS ORAL 04/30/20 12:00 05/30/20 11:59 05/05/20 05:59 Last 24 Hour Vital Signs Date Time Temp Pulse Resp B/P (MAP) Pulse Ox O2 Delivery O2 Flow Rate FiO2 05/05/20 04:00 58 05/05/20 04:00 97.2 58 18 103/69 (80) 97 05/05/20 00:00 97.3 62 18 109/71 (84) 100 05/05/20 00:00 62 05/04/20 21:00 Room Air 05/04/20 20:00 98.7 62 19 100/55 (70) 96 05/04/20 20:00 62 05/04/20 16:00 96.6 93 20 118/67 (84) 96 05/04/20 16:00 60 05/04/20 12:04 97.5 81 19 114/65 (81) 99 05/04/20 12:00 59 05/04/20 09:00 Room Air 05/04/20 08:00 66 05/04/20 07:45 96.7 70 20 108/64 (79) 98 05/04/20 07:45 98 Room Air 21 05/04/20 04:00 98.1 60 17 106/65 (79) 98 05/04/20 04:00 55 05/04/20 00:00 97.7 62 16 104/69 (81) 99 05/04/20 00:00 73 05/03/20 21:00 Room Air 05/03/20 20:00 98.2 67 17 101/67 (78) 97 05/03/20 20:00 63 05/03/20 16:00 64 05/03/20 16:00 96.6 76 19 102/67 (79) 98 05/03/20 12:00 96.8 67 17 104/63 (77) 96 05/03/20 12:00 65 05/03/20 09:00 Room Air 05/03/20 08:00 67 05/03/20 08:00 98.1 93 20 103/61 (75) 96 Intake and Output 05/04/20 05/05/20 19:00 07:00 Intake Total 2130 ml 600 ml Output Total 600 ml Balance 2130 ml 0 ml Intake Oral 720 ml 600 ml IV Total 1410 ml Output Urine Total 600 ml # Voids 3 Labs Test 05/04/20 08:40 White Blood Count 3.4 K/UL (4.8-10.8) Red Blood Count 3.73 M/UL (4.70-6.10) Hemoglobin 12.2 G/DL (14.2-18.0) Hematocrit 36.2 % (42.0-52.0) Mean Corpuscular Volume 97 FL (80-99) Mean Corpuscular Hemoglobin 32.6 PG (27.0-31.0) Mean Corpuscular Hemoglobin Concent 33.6 G/DL (32.0-36.0) Red Cell Distribution Width 11.4 % (11.6-14.8) Platelet Count 195 K/UL (150-450) Mean Platelet Volume 7.6 FL (6.5-10.1) Neutrophils (%) (Auto) % (45.0-75.0) Lymphocytes (%) (Auto) % (20.0-45.0) Monocytes (%) (Auto) % (1.0-10.0) Eosinophils (%) (Auto) % (0.0-3.0) Basophils (%) (Auto) % (0.0-2.0) Differential Total Cells Counted 100 Neutrophils % (Manual) 52 % (45-75) Lymphocytes % (Manual) 42 % (20-45) Monocytes % (Manual) 6 % (1-10) Eosinophils % (Manual) 0 % (0-3) Basophils % (Manual) 0 % (0-2) Band Neutrophils 0 % (0-8) Platelet Estimate Adequate Platelet Morphology Normal Red Blood Cell Morphology Normal Sodium Level 140 MMOL/L (136-145) Potassium Level 4.3 MMOL/L (3.5-5.1) Chloride Level 103 MMOL/L (98-107) Carbon Dioxide Level 29 MMOL/L (21-32) Anion Gap 8 mmol/L (5-15) Blood Urea Nitrogen 11 mg/dL (7-18) Creatinine 0.7 MG/DL (0.55-1.30) Estimat Glomerular Filtration Rate > 60 mL/min (>60) Glucose Level 280 MG/DL (74-106) Calcium Level 9.0 MG/DL (8.5-10.1) Phosphorus Level 4.9 MG/DL (2.5-4.9) Magnesium Level 1.7 MG/DL (1.8-2.4) Total Bilirubin 0.3 MG/DL (0.2-1.0) Aspartate Amino Transf (AST/SGOT) 53 U/L (15-37) Alanine Aminotransferase (ALT/SGPT) 51 U/L (12-78) Alkaline Phosphatase 65 U/L (46-116) C-Reactive Protein, Quantitative 0.6 mg/dL (0.00-0.90) Total Protein 5.7 G/DL (6.4-8.2) Albumin 2.7 G/DL (3.4-5.0) Globulin 3.0 g/dL Albumin/Globulin Ratio 0.9 (1.0-2.7) Height (Feet): 5 Height (Inches): 7.00 Weight (Pounds): 137 Objective Pe General: Awake and alert, appears uncomfortable HEENT: NC/AT. EOMI. Cardiovascular: Tachycardic Resp: 10 L nonrebreather. Increased work of breathing with substernal retractions ++ Abdomen: Abdomen is soft, nondistended. Nontender Skin: Intact. No abrasions, laceration or rash over the exposed skin MSK: Normal tone and bulk. Moving all extremities. No obvious deformity. Neuro: Awake and alert. Mentating appropriately. Renard Argueta MD May 05, 2020 06:03
--- NOTE | 2020-05-05 06:14 | General Progress Note ---
Subjective Allergies: Coded Allergies: No Known Allergies (Unverified , 04/28/20) All Systems: reviewed and negative except above Subjective events noted started on Metformin over the weekend and insulin dose increase by Dr Marie Item Value Date Time Bedside Blood Glucose 100 mg/dl 05/05/20 0559 Bedside Blood Glucose 90 mg/dl 05/04/20 2100 Bedside Blood Glucose 208 mg/dl H 05/04/20 1719 Bedside Blood Glucose 221 mg/dl H 05/04/20 1126 Bedside Blood Glucose 151 mg/dl H 05/04/20 0804 Bedside Blood Glucose 151 mg/dl H 05/04/20 0630 Objective Last 24 Hour Vital Signs Date Time Temp Pulse Resp B/P (MAP) Pulse Ox O2 Delivery O2 Flow Rate FiO2 05/05/20 04:00 58 05/05/20 04:00 97.2 58 18 103/69 (80) 97 05/05/20 00:00 97.3 62 18 109/71 (84) 100 05/05/20 00:00 62 05/04/20 21:00 Room Air 05/04/20 20:00 98.7 62 19 100/55 (70) 96 05/04/20 20:00 62 05/04/20 16:00 96.6 93 20 118/67 (84) 96 05/04/20 16:00 60 05/04/20 12:04 97.5 81 19 114/65 (81) 99 05/04/20 12:00 59 05/04/20 09:00 Room Air 05/04/20 08:00 66 05/04/20 07:45 96.7 70 20 108/64 (79) 98 05/04/20 07:45 98 Room Air 21 Intake and Output 05/04/20 05/05/20 19:00 07:00 Intake Total 2130 ml 600 ml Output Total 600 ml Balance 2130 ml 0 ml Intake Oral 720 ml 600 ml IV Total 1410 ml Output Urine Total 600 ml # Voids 3 Laboratory Tests 05/04/20 08:40: White Blood Count 3.4L, Red Blood Count 3.73L, Hemoglobin 12.2L, Hematocrit 36.2L, Mean Corpuscular Volume 97, Mean Corpuscular Hemoglobin 32.6H, Mean Corpuscular Hemoglobin Concent 33.6, Red Cell Distribution Width 11.4L, Platelet Count 195, Mean Platelet Volume 7.6, Neutrophils (%) (Auto) , Lymphocytes (%) (Auto) , Monocytes (%) (Auto) , Eosinophils (%) (Auto) , Basophils (%) (Auto) , Differential Total Cells Counted 100, Neutrophils % (Manual) 52, Lymphocytes % (Manual) 42, Monocytes % (Manual) 6, Eosinophils % (Manual) 0, Basophils % (Manual) 0, Band Neutrophils 0, Platelet Estimate Adequate, Platelet Morphology Normal, Red Blood Cell Morphology Normal, Sodium Level 140, Potassium Level 4.3, Chloride Level 103, Carbon Dioxide Level 29, Anion Gap 8, Blood Urea Nitrogen 11, Creatinine 0.7, Estimat Glomerular Filtration Rate > 60, Glucose Level 280H, Calcium Level 9.0, Phosphorus Level 4.9, Magnesium Level 1.7L, Total Bilirubin 0.3, Aspartate Amino Transf (AST/SGOT) 53H, Alanine Aminotransferase (ALT/SGPT) 51, Alkaline Phosphatase 65, C-Reactive Protein, Quantitative 0.6, Total Protein 5.7L, Albumin 2.7L, Globulin 3.0, Albumin/Globulin Ratio 0.9L Height (Feet): 5 Height (Inches): 7.00 Weight (Pounds): 137 General Appearance: no apparent distress Neck: normal alignment Cardiovascular: normal rate Respiratory/Chest: lungs clear Abdomen: normal bowel sounds Pelvis: normal external exam Objective Current Medications Medications (Trade) Dose Ordered Sig/Jazzmine Route PRN Reason Start Time Stop Time Status Last Admin Dose Admin Atorvastatin Calcium (Lipitor) 20 mg BEDTIME ORAL 04/29/20 21:00 07/28/20 20:59 05/01/20 20:51 Ceftriaxone Sodium 1 gm/ Sodium Chloride 55 ml @ 110 mls/hr Q24H IVPB 04/30/20 11:00 05/06/20 10:59 05/01/20 10:27 Clonidine HCl (Catapres Tab) 0.1 mg Q2H PRN ORAL SBP above 170 04/28/20 23:15 07/27/20 23:14 Dextrose (Dextrose 50%) 25 ml Q30M PRN IV Hypoglycemia 05/01/20 15:30 07/30/20 15:29 Dextrose (Dextrose 50%) 50 ml Q30M PRN IV Hypoglycemia 05/01/20 15:30 07/30/20 15:29 Enoxaparin Sodium (Lovenox) 40 mg DAILY SUBQ 04/29/20 09:00 07/28/20 08:59 05/01/20 09:28 Hydralazine HCl (Apresoline) 25 mg Q4H PRN ORAL bp over 160 syst 05/01/20 08:45 07/30/20 08:44 Insulin Aspart (NovoLOG) BEFORE MEALS AND HS SUBQ 05/01/20 16:30 07/30/20 16:29 05/01/20 20:52 Insulin Aspart (NovoLOG) 6 units NOVOTIAC SUBQ 05/01/20 16:50 07/30/20 16:49 Insulin Detemir (Levemir) 18 units BEDTIME SUBQ 05/01/20 21:00 07/30/20 20:59 05/01/20 20:51 Pantoprazole (Protonix) 40 mg EVERY 12 HOURS ORAL 05/01/20 09:00 05/31/20 08:59 05/01/20 20:51 Potassium Chloride/Sodium Chloride 1,000 ml @ 100 mls/hr Q10H IV 04/28/20 23:45 05/28/20 23:44 05/01/20 20:52 Potassium Chloride (K-Dur) 40 meq TWICE A DAY ORAL 05/01/20 09:00 07/30/20 08:59 05/01/20 17:24 Sodium Citrate (Bicitra) 30 ml EVERY 6 HOURS ORAL 04/30/20 12:00 05/30/20 11:59 05/01/20 23:42 Assessment/Plan Problem List: (1) DKA (diabetic ketoacidoses) ICD Codes: E11.10 - Type 2 diabetes mellitus with ketoacidosis without coma SNOMED: 113621286, 47297153 (2) Hyperglycemia ICD Codes: R73.9 - Hyperglycemia, unspecified SNOMED: 32128091 (3) Elevated WBC count ICD Codes: D72.829 - Elevated white blood cell count, unspecified SNOMED: 956871717, 842718540 (4) JEREMY (acute kidney injury) ICD Codes: N17.9 - Acute kidney failure, unspecified SNOMED: 58968707, 9691482 (5) Elevated d-dimer ICD Codes: R79.89 - Other specified abnormal findings of blood chemistry SNOMED: 028896864 Status: progressing Assessment/Plan: change Levemir to 12 units bid change Novolog to 8 units ac tid + SSI DC Metformin hypoglycemia protocol in order Ze Dutton MD May 05, 2020 06:14
[2020-05-05] MEDS ORDERED: NovoLOG Insulin Flexpen SUBQ SCH (06:30)
--- NOTE | 2020-05-05 07:25 | NUR ---
NURSE NOTES: pt is sitting up in bed and eating breakfast, tolerates meal well. denies any pain and discomfort. no sob noted. no acute distress noted at this time. call light placed within reach.
--- NOTE | 2020-05-05 07:44 | Consultation ---
DATE OF CONSULTATION: 05/03/2020 ADDENDUM The patient has serum creatinine of 0.6 discharged on metformin 500 mg p.o. b.i.d. . Marvin Marie M.D. DR: JEREMIAH JOB#: [id number] CC:
[2020-05-05] MEDS: Enoxaparin 40mg Inj SUBQ SCH (08:44)
[2020-05-05] MEDS ORDERED: Levemir Flexpen SUBQ SCH (09:00)
--- NOTE | 2020-05-05 11:20 | Nephrology Progress Note ---
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 Stable from renal standpoint to view. Continue per consultants. May 04: Labs reviewed. Abnormal electrolytes addressed. Medication list reviewed. Continue per consultants. May 03: No labs drawn today. Will check lab tomorrow. Stable from renal standpoint of view. Medication list reviewed. May 02: Low magnesium and low phosphorus addressed. Renal parameters within normal limit. Medication list reviewed. Continue per consultants. May 01: Labs reviewed. Low potassium addressed. BP medication adjusted. Continue per current management. April 30: UA indicative of UTI. Urine tox screen negative. Low magnesium and low potassium addressed. Continue per consultants. Previously: Hydrate Blood sugar control To correct low phosphorus low potassium and other electrolytes abnormalities as needed Per orders Subjective ROS Limited/Unobtainable: No Constitutional: Reports: malaise Objective Objective Last 24 Hour Vital Signs Date Time Temp Pulse Resp B/P (MAP) Pulse Ox O2 Delivery O2 Flow Rate FiO2 05/05/20 08:00 65 05/05/20 04:00 58 05/05/20 04:00 97.2 58 18 103/69 (80) 97 05/05/20 00:00 97.3 62 18 109/71 (84) 100 05/05/20 00:00 62 05/04/20 21:00 Room Air 05/04/20 20:00 98.7 62 19 100/55 (70) 96 05/04/20 20:00 62 05/04/20 16:00 96.6 93 20 118/67 (84) 96 05/04/20 16:00 60 05/04/20 12:04 97.5 81 19 114/65 (81) 99 05/04/20 12:00 59 Intake and Output 05/04/20 05/05/20 19:00 07:00 Intake Total 2130 ml 600 ml Output Total 600 ml Balance 2130 ml 0 ml Intake Oral 720 ml 600 ml IV Total 1410 ml Output Urine Total 600 ml # Voids 3 Current Medications Medications (Trade) Dose Ordered Sig/Jazzmine Route PRN Reason Start Time Stop Time Status Last Admin Dose Admin Atorvastatin Calcium (Lipitor) 20 mg BEDTIME ORAL 04/29/20 21:00 07/28/20 20:59 05/04/20 20:56 Ceftriaxone Sodium 1 gm/ Sodium Chloride 55 ml @ 110 mls/hr Q24H IVPB 04/30/20 11:00 05/06/20 10:59 05/04/20 10:58 Clonidine HCl (Catapres Tab) 0.1 mg Q2H PRN ORAL SBP above 170 04/28/20 23:15 07/27/20 23:14 Dextrose (Dextrose 50%) 25 ml Q30M PRN IV Hypoglycemia 05/01/20 15:30 07/30/20 15:29 Dextrose (Dextrose 50%) 50 ml Q30M PRN IV Hypoglycemia 05/01/20 15:30 07/30/20 15:29 Enoxaparin Sodium (Lovenox) 40 mg DAILY SUBQ 04/29/20 09:00 07/28/20 08:59 05/05/20 08:44 Hydralazine HCl (Apresoline) 25 mg Q4H PRN ORAL bp over 160 syst 05/01/20 08:45 07/30/20 08:44 Insulin Aspart (NovoLOG) BEFORE MEALS AND HS SUBQ 05/01/20 16:30 07/30/20 16:29 05/04/20 16:44 Insulin Aspart (NovoLOG) 8 units NOVOTIAC SUBQ 05/05/20 06:30 07/30/20 16:49 Insulin Detemir (Levemir) 12 units BID SUBQ 05/05/20 09:00 07/30/20 20:59 05/05/20 08:45 Pantoprazole (Protonix) 40 mg EVERY 12 HOURS ORAL 05/01/20 09:00 05/31/20 08:59 05/05/20 08:34 Potassium Chloride/Sodium Chloride 1,000 ml @ 100 mls/hr Q10H IV 04/28/20 23:45 05/28/20 23:44 05/05/20 05:58 Potassium Chloride (K-Dur) 40 meq TWICE A DAY ORAL 05/01/20 09:00 07/30/20 08:59 05/05/20 08:36 Sodium Citrate (Bicitra) 30 ml EVERY 6 HOURS ORAL 04/30/20 12:00 05/30/20 11:59 05/05/20 05:59 No labs drawn today Height (Feet): 5 Height (Inches): 7.00 Weight (Pounds): 137 General Appearance: no apparent distress Cardiovascular: normal rate Respiratory/Chest: decreased breath sounds Abdomen: soft Objective No change Calos Kingsley MD May 05, 2020 11:20
--- NOTE | 2020-05-05 11:48 | Infectious Diseases Prog Note ---
Assessment/Plan Assessment/Plan IMPRESSION: Sepsis versus systemic inflammatory response syndrome Strep group B UTI Pneumonia, Diabetic ketoacidosis, Acute renal failure,resolved RECOMMENDATION: Discontinue ceftriaxone Clear for discharge without antibiotic Subjective ROS Limited/Unobtainable: No Constitutional: Reports: no symptoms Respiratory: Reports: no symptoms Gastrointestinal/Abdominal: Reports: no symptoms Genitourinary: Reports: no symptoms Allergies: Coded Allergies: No Known Allergies (Unverified , 04/28/20) Objective Last 24 Hour Vital Signs Date Time Temp Pulse Resp B/P (MAP) Pulse Ox O2 Delivery O2 Flow Rate FiO2 05/05/20 08:00 65 05/05/20 04:00 58 05/05/20 04:00 97.2 58 18 103/69 (80) 97 05/05/20 00:00 97.3 62 18 109/71 (84) 100 05/05/20 00:00 62 05/04/20 21:00 Room Air 05/04/20 20:00 98.7 62 19 100/55 (70) 96 05/04/20 20:00 62 05/04/20 16:00 96.6 93 20 118/67 (84) 96 05/04/20 16:00 60 05/04/20 12:04 97.5 81 19 114/65 (81) 99 05/04/20 12:00 59 Height (Feet): 5 Height (Inches): 7.00 Weight (Pounds): 137 General Appearance: no acute distress HEENT: mucous membranes moist Respiratory/Chest: lungs clear Cardiovascular: normal rate Abdomen: soft, non tender Extremities: no edema Neurologic/Psychiatric: alert, responsive Current Medications Medications (Trade) Dose Ordered Sig/Jazzmine Route PRN Reason Start Time Stop Time Status Last Admin Dose Admin Atorvastatin Calcium (Lipitor) 20 mg BEDTIME ORAL 04/29/20 21:00 07/28/20 20:59 05/04/20 20:56 Ceftriaxone Sodium 1 gm/ Sodium Chloride 55 ml @ 110 mls/hr Q24H IVPB 04/30/20 11:00 05/06/20 10:59 05/04/20 10:58 Clonidine HCl (Catapres Tab) 0.1 mg Q2H PRN ORAL SBP above 170 04/28/20 23:15 07/27/20 23:14 Dextrose (Dextrose 50%) 25 ml Q30M PRN IV Hypoglycemia 05/01/20 15:30 07/30/20 15:29 Dextrose (Dextrose 50%) 50 ml Q30M PRN IV Hypoglycemia 05/01/20 15:30 07/30/20 15:29 Enoxaparin Sodium (Lovenox) 40 mg DAILY SUBQ 04/29/20 09:00 07/28/20 08:59 05/05/20 08:44 Hydralazine HCl (Apresoline) 25 mg Q4H PRN ORAL bp over 160 syst 05/01/20 08:45 07/30/20 08:44 Insulin Aspart (NovoLOG) BEFORE MEALS AND HS SUBQ 05/01/20 16:30 07/30/20 16:29 05/04/20 16:44 Insulin Aspart (NovoLOG) 8 units NOVOTIAC SUBQ 05/05/20 06:30 07/30/20 16:49 Insulin Detemir (Levemir) 12 units BID SUBQ 05/05/20 09:00 07/30/20 20:59 05/05/20 08:45 Pantoprazole (Protonix) 40 mg EVERY 12 HOURS ORAL 05/01/20 09:00 05/31/20 08:59 05/05/20 08:34 Potassium Chloride/Sodium Chloride 1,000 ml @ 100 mls/hr Q10H IV 04/28/20 23:45 05/28/20 23:44 05/05/20 05:58 Potassium Chloride (K-Dur) 40 meq TWICE A DAY ORAL 05/01/20 09:00 07/30/20 08:59 05/05/20 08:36 Sodium Citrate (Bicitra) 30 ml EVERY 6 HOURS ORAL 04/30/20 12:00 05/30/20 11:59 05/05/20 05:59 Sebas Posada MD May 05, 2020 11:48
--- NOTE | 2020-05-05 13:07 | NUR ---
BOBBIN STRIPPER NOTE SW spoke w/ pt in regards to his current insurance. Pt currently has [employer] presumptive. Pt reports [employer] was signed up while he was at [facility] a few months ago. SW encouraged pt to F/U w/ [facility] for restricted [employer]. SW provided the list of [facility] w/ pharmacy services and prescription savings program. SW discussed the importance of insuline w/ pt. SW encouraged pt to F/U w/ outpatient service as soon as possible. Pt verbalized understanding.
--- NOTE | 2020-05-05 13:09 | Cardiac Electrophysiology PN ---
Assessment/Plan Assessment/Plan 1. Tachycardia due to diabetic ketoacidosis. EF 65%. Resolved 2. 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 No syncope or CHB 3. Severe hypokalemia. Potassium replaced. 4. Hyperlipidemia. The LDL goal is less than 70. Now on Lipitor. 5. S/P DKA, now off insulin drip FRAN RN OK to DC Subjective Subjective On RA in NAD. Alert with no CP or SOB. In SR off ivfluid. DC home pending Objective Last 24 Hour Vital Signs Date Time Temp Pulse Resp B/P (MAP) Pulse Ox O2 Delivery O2 Flow Rate FiO2 05/05/20 08:00 65 05/05/20 04:00 58 05/05/20 04:00 97.2 58 18 103/69 (80) 97 05/05/20 00:00 97.3 62 18 109/71 (84) 100 05/05/20 00:00 62 05/04/20 21:00 Room Air 05/04/20 20:00 98.7 62 19 100/55 (70) 96 05/04/20 20:00 62 05/04/20 16:00 96.6 93 20 118/67 (84) 96 05/04/20 16:00 60 Intake and Output 05/04/20 05/05/20 19:00 07:00 Intake Total 2130 ml 600 ml Output Total 600 ml Balance 2130 ml 0 ml Intake Oral 720 ml 600 ml IV Total 1410 ml Output Urine Total 600 ml # Voids 3 Objective HEAD AND NECK: No JVD. LUNGS: Clear. CARDIOVASCULAR: Regular S1 and S2 with no gallop. ABDOMEN: Soft. EXTREMITIES: No pitting edema. Jordan Ordonez MD May 05, 2020 13:09
--- NOTE | 2020-05-05 14:00 | NUR ---
NURSE NOTES: pt discharged home at this time. prior discharge, pt is A&O X4, provided with discharge teaching and instructions. pt verbalized understanding. pt denies any chest pain. respiration is even and unlabored on room air. skin is intact. IV line removed; ID band removed. pt said he will go home by bus. escorted pt to the lobby and showed pt the way to the bus stop . pt left home at this time. gait is steady. Addendum: 05/05/20 at 1436 by Ye Jones RN NURSE NOTES: pt discharged home at this time. prior discharge, pt is A&O X4, provided with discharge teaching and instructions. pt verbalized understanding. pt denies any chest pain. respiration is even and unlabored on room air. skin is intact. IV line removed; ID band removed. pt said he will go home by bus. escorted pt to the lobby and showed pt the way to the bus stop. pt went home at this time in no acute distress. gait is steady.
--- NOTE | 2020-05-05 22:22 | General Progress Note ---
Subjective Allergies: Coded Allergies: No Known Allergies (Unverified , 04/28/20) Subjective Feels OK' no abd complaints tolerating PO Objective Last 24 Hour Vital Signs Date Time Temp Pulse Resp B/P (MAP) Pulse Ox O2 Delivery O2 Flow Rate FiO2 05/05/20 08:00 65 05/05/20 04:00 58 05/05/20 04:00 97.2 58 18 103/69 (80) 97 05/05/20 00:00 97.3 62 18 109/71 (84) 100 05/05/20 00:00 62 Intake and Output 05/04/20 05/05/20 19:00 07:00 Intake Total 2130 ml 600 ml Output Total 600 ml Balance 2130 ml 0 ml Intake Oral 720 ml 600 ml IV Total 1410 ml Output Urine Total 600 ml # Voids 3 Laboratory Tests 05/05/20 11:31: POC Whole Blood Glucose 200H Height (Feet): 5 Height (Inches): 7.00 Weight (Pounds): 137 Objective WDWN NCAT supple CTA RRR abd sot ND NT no edema Assessment/Plan Status: progressing Assessment/Plan: Assessment - DKA - abnormal LFT - likely fatty liver - hypokalemia - hypomagensemia Recommendations - po as tolerated - follow labs and exam - replace lytes PRN - f/u hepatitis serologies - negative Saima Rodriguez MD May 05, 2020 22:22
--- NOTE | 2020-05-06 15:34 | Discharge Summary ---
Discharge Summary Discharge Summary _ Date of admission: 04/28/2020 Date of discharge: 05/05/[address] Noble History of Present Illness and Brief Hospital Course Mr. Schuler is a 50-year-old male with past medical history of diabetes mellitus who presented to the ED for evaluation of shortness of breath x2 days. Chest x-ray in the ER showed no acute cardiopulmonary disease. Patient's laboratory studies were remarkable for leukocytosis, hyperglycemia, lactic acidosis, elevated D-dimer, and acidemia. Patient was immediately started on insulin drip and bicarb. Troponin was negative. COVID-19 antigen test was negative. Patient was admitted to the hospital for further management. Given the initial presentation consistent with sepsis versus systemic inflammatory response syndrome, patient was started on ceftriaxone. Patient also had findings consistent with UTI. Given the elevated D-dimer, patient was started on Lovenox. Venous duplex ultrasound of legs was negative for DVT. Patient was continued on insulin given history of diabetes mellitus with hyperglycemia. Hypoglycemia protocol was in place. Electrolyte imbalance was controlled with replacements. Patient also presented with tachycardia likely due to diabetic ketoacidosis. Echocardiogram revealed ejection fraction of 65%. Patient also had bifascicular block with right bundle branch block and left posterior fascicular block. Patient had no episodes of syncope. Patient was also found to have hyperlipidemia. His LDL goal was less than 70. Patient was started on Lipitor. Throughout his hospitalization, patient was treated for sepsis, UTI, hypoxia, and hyperglycemia. Patient was medically stable for discharge and was discharged home on 05/05/2020. Consultants: Cardiology Dr. Ordonez Endocrinology Dr. Dutton Hematology oncology Dr. Argueta Gastroenterology Dr. Rodriguez Nephrology Dr. Castillo Infectious disease Dr. Posada Pulmonology Dr. Ray Discharge Condition Stable Discharge Activity Ambulation, exercise Discharge Diet Regular Final diagnoses Tachycardia Bifascicular block with right bundle branch block and left posterior fascicular block Severe hypokalemia Hyperlipidemia Leukocytosis Anemia of chronic disease Diabetic ketoacidosis Acute kidney injury Sepsis Systemic inflammatory response syndrome Strep group B UTI Pneumonia Diabetes mellitus with hyperglycemia Hypoxemic respiratory failure I have been assigned to dictate discharge summary for this account. Alexandru Aranda May 06, 2020 15:34
== END 2020-05-05 14:00 | disposition home or self-care (01) | DRG 720 ==
LOC: EMR 14:30 → ICU 15:10 → EDBEDREQSVC 15:52 → EDBEDREQ 17:13 → ICU 18:36 → 2E 05-01 21:59
DX: A41.9 Sepsis, unspecified organism (principal); E11.10 Type 2 diabetes mellitus with ketoacidosis without coma; N17.9 Acute kidney failure, unspecified; J18.9 Pneumonia, unspecified organism; N39.0 Urinary tract infection, site not specified; E87.6 Hypokalemia; D63.8 Anemia in other chronic diseases classified elsewhere; I45.2 Bifascicular block; E78.5 Hyperlipidemia, unspecified; J96.01 Acute respiratory failure with hypoxia; Z91.14 Patient's other noncompliance with medication regimen; Z79.4 Long term (current) use of insulin; B95.1 Streptococcus, group B, as the cause of diseases classified elsewhere; E83.42 Hypomagnesemia; K76.0 Fatty (change of) liver, not elsewhere classified
CPT/HCPCS: 36415; 71045; 76700; 80048; 80053; 80061; 80307; 81001; 82009; 82550; 82553; 82728; 82803; 82962; 82977; 83036; 83605; 83615; 83690; 83735; 83880; 84100; 84439; 84443; 84484; 84550; 85007; 85025; 85379; 85610; 85730; 86140; 86705; 86709; 86803; 87040; 87086; 87340; 93005; 93306; 93970; 96361; 96365; 96375; 99291; J1815; J2405; J7030; J8499; S5561